=== PATIENT | male | born 1940 | race Caucasian/White ===

== ENCOUNTER 2019-11-23 07:46 | Day surgery (SDC) | payer OTHER ==
--- NOTE | 2019-11-22 11:13 | EKG ---
Test Date: 2019-11-22 Test Time: 09:44:38 Live [employer] Nanny: JORDY MEASUREMENT RESULTS: Intervals: Rate: 68 DC: 166 QRSD: 152 QT: 452 QTc: 480 [place]: P: 50 DC: 166 QRS: -68 T: -14 INTERPRETIVE STATEMENTS: Normal sinus rhythm Right bundle branch block Left anterior fascicular block Bifascicular block Abnormal ECG No previous ECG available for comparison Electronically Signed On 11-22-19 11:13:21 CDT by Jed Langley
[2019-11-22 11:32] LABS: Potassium 4.3 mmol/L (3.5-5.1)
--- NOTE | 2019-11-22 11:32 | RAD REPORT ---
EXAM DESCRIPTION: RAD - Chest Pa And Lat (2 Views) - 11/22/2019 11:14 am CLINICAL HISTORY: preop Chest pain. COMPARISON: Chest Pa And Lat (2 Views) dated 09/27/2016 FINDINGS: Calcified granuloma seen left lung. Elevated right hemidiaphragm with subsegmental atelect asis in the right lung base. The lungs are otherwise clear. The heart is upper limit of normal in siz e. No displaced fractures.
[2019-11-22 11:39] LABS: Absolute Lymphocytes (CBC) 2.3 K/uL (0.7-4.9); Basophils % 0.4 % (0-1.3); Lymphocytes % 54.4 % (15.3-44.8); MPV 7.8 fL (7.6-11.3); RBC Red Blood Cell Count 3.62 M/uL (4.33-5.43)
[2019-11-23] MEDS ORDERED: NA CHLORIDE 0.9% 1,000 ML ONE (08:09)
[2019-11-23] MEDS ORDERED: CEFAZOLIN/SWI 1gm 1 GM/10 ML SYR ONE (08:19)
[2019-11-23] MEDS ORDERED: FENTANYL CITR 100 MCG/2 ML ONE (09:13)
[2019-11-23] MEDS ORDERED: LIDOCAINE 1% MPF 5 ML VIAL ONE (09:13)
[2019-11-23] MEDS ORDERED: propofoL 200 MG/20 ML VIAL IV ONE (09:13)
--- NOTE | 2019-11-23 09:52 | P.BOP ---
Preoperative diagnosis: infected back subcutaneous mass with cellulitis and abscess Postoperative diagnosis: same Primary procedure: Excisional biopsy infected back subcutaneous mass with abscess drainage Secondary procedure: 7x7cm Estimated blood loss: <10 Specimen: mass, cult Anesthesia: General Complications: None Transferred to: Recovery Room Condition: Good
[2019-11-23] MEDS ORDERED: KETOROLAC 30 MG/ML INJ ONE (09:55)
[2019-11-23] MEDS ORDERED: ONDANSETRON 4 MG/2 ML VIAL ONE (09:56)
[2019-11-23 10:19] VITALS: TEMP 98
[2019-11-23 12:01] VITALS: BP 118/67; O2SAT 92
--- NOTE | 2019-11-23 20:07 | OP ---
Date of Procedure: 11/23/2019 Surgeon: Tank Aldana MD Preoperative Diagnoses: Infected back subcutaneous mass with cellulitis and abscess, diabetes. Postoperative Diagnoses: Infected back subcutaneous mass with cellulitis and abscess, diabetes. Procedure: Excisional biopsy of infected back subcutaneous mass with drainage of an abscess, 7 x 7 c m. Estimated Blood Loss: Less than 10 mL. Specimens: Mass and culture from the pus. Anesthesia: General plus local. Indications: This is the case of a 79-year-old patient with history of diabetes, with infected back mass, subcutaneous abscess, tenderness. Patient was scheduled for an excisional biopsy and drainage of abscess with benefits, alternatives, and risks, including but not limited to infection, bleeding, damage to adjacent structures, anesthesia complication, nonhealing wound, VT, and even . He als o understands this may not relieve any symptoms, he might need more than one surgical intervention. He understood, signed a consent. He also understands he will need more than one surgical interventio n. He signed a consent. Description Of Procedure: Patient was brought to the operating room, placed in supine position. Ane sthesia was done without complication. Patient was placed in lateral decubitus position with proper protection. Back area was prepped and draped in a sterile fashion, time-out was called, and incision was made in the area of the necrotic tissue all the way down to subcutaneous tissue. Mass and absce ss goes all the way down to fascia of the muscle, but does not penetrate the muscle. The mass was ex cised, abscess was cultured. Patient tolerated the procedure well. Hemostasis was obtained and then the area was packed with wet-to-dry dressing. Patient tolerated the procedure well. Patient was se nt to recovery in stable condition. Disposition: Home. Activities: As tolerated. No heavy lifting. Followup: Follow up in my office in 1 week. Call for appointment [phone]. Wet-to-dry dressing, no rmal saline daily. Medications: See orders. HM/MODL Voice ID: [id number] Report ID: [id number]
--- NOTE | 2019-11-30 03:54 | DS ---
Diagnosis: Infected back subcutaneous mass with cellulitis and abscess. Procedure: Excisional biopsy of infected back, subcutaneous mass with abscess drainage. Disposition: Home. Activity: As tolerated. No heavy lifting. Followup: Follow up in my office in 1 week. Call for appointment [phone]. Wet-to-dry dressing, nor mal saline daily. Medications: See orders. JUDIT/SHAILESH Voice ID: [id number] Report ID: [id number]
--- NOTE | 2019-11-30 03:54 | OP ---
Date of Procedure: 11/29/2019 Surgeon: Tank Aldana MD Diagnosis: Infected back subcutaneous mass with cellulitis and abscess. Postoperative Diagnosis: Infected back subcutaneous mass with cellulitis and abscess. Procedure: Excisional biopsy of infected back subcutaneous mass with abscess drainage about 7 x 7 cm . Estimated Blood Loss: Less than 10 mL. Anesthesia: General plus local. Indications: This is a case of a 79-year-old patient coming with infected mass in the back. The maude efits and risks of excisional biopsy of that mass with the drainage of abscess fully explained which include but are not limited to infection, bleeding, damage to adjacent structures, anesthesia complic ation, nonhealing wound, [place], and even . He also understands this may not relieve the symptoms. He might need more than one surgical eventually. He understood, signed a consent. The area of conc leah was marked by me and the patient in the holding room. Description Of Procedure: Patient was brought to the operating room, placed in supine position. Ane sthesia was given without complication. The patient was placed in a lateral decubitus position with proper protection. The back area was prepped and draped in sterile fashion. A time-out was called. An incision was made where we did notice the devitalized tissue and mass present, some of the skin h ad to be removed and then this gave the access to an abscess cavity with multiple loculations that alvarez ve to be drained, pus, culture and hemostasis obtained with the mass excised. Patient tolerated the procedure well. Hemostasis obtained. Irrigation was done. Local anesthetic was applied. The area was closed with a dry dressing. Patient tolerated the procedure well. Patient was sent to recovery in stable condition. JUDIT/SHAILESH Voice ID: [id number] Report ID: [id number]
== END 2019-11-23 11:45 | disposition home or self-care (01) ==
LOC: OR 07:46
PROVIDERS: ATTEND Surgery
PROC: 0JB70ZZ Excision of Back Subcutaneous Tissue and Fascia, Open Approach (ICD-10-PCS; principal; 2019-11-23 09:00)
DX: L72.0 Epidermal cyst (principal); E11.9 Type 2 diabetes mellitus without complications; I10 Essential (primary) hypertension; K21.9 Gastro-esophageal reflux disease without esophagitis; E78.00 Pure hypercholesterolemia, unspecified; Z82.49 Family history of ischemic heart disease and other diseases of the circulatory system
CPT/HCPCS: 11406; 93005; 87070; 85025; 80048; 36415; 87205; 82947; 88304; 87075; 71046; J2704; J3010; J0690; J7030; J2405

== ENCOUNTER 2020-12-22 14:29 | Emergency (ER) | payer OTHER ==
--- NOTE | 2020-12-22 15:56 | RAD REPORT ---
EXAM DESCRIPTION: MRI - C Spine Wo Cont - 12/22/2020 3:22 pm CLINICAL HISTORY: neck pain COMPARISON: C Spine Ap/Lat dated 12/18/2020 TECHNIQUE: Sagittal T1-weighted, T2-weighted and T2-STIR sequences were obtained as well as T2 medic sequence. FINDINGS: Cervical vertebral bodies are normal in height and alignment. No suspicious marrow edema o r marrow replacing process. No paraspinal mass. Patient has scattered fatty marrow degenerative diaz ge in the Shyla bodies. There are prominent degenerative changes around the dens anterior arch C1. Th ickening is seen along the transverse ligament posterior to the dens. Cerebellar tonsils and mid-line skull base show no suspicious finding. No significant finding at the C1 and C2 levels. C2-3 level: No significant findings. C3-4 level: Midline disc bulge partially attenuates the anterior subarachnoid space. Midline canal is 12 mm with no contact of the cord. C4-5 level: Disc bulge and endplate spurring partially attenuate the anterior subarachnoid space. No cord flattening. Midline diameter is 13 mm. No significant foraminal encroachment. C5-6 level: Slight loss in disc height. Prominent disc bulge and endplate spurring attenuates the ant erior subarachnoid space. Posterior ligamentous thickening present. Midline canal is 11-12 mm. Uncove rtebral hypertrophy and disc bulge cause significant bilateral foraminal stenosis. C6-7 level: Disc space narrowing and desiccation changes are present. Mild disc bulge changes are pre sent without central spinal stenosis. Disc bulge and uncovertebral joint hypertrophy cause moderate l eft and moderately severe right foraminal stenosis. C7-T1 level: No significant findings. Cervical cord shows no focal narrowing, expansion or signal abnormality. IMPRESSION: Multilevel cervical spondylosis changes are present. There is no central spinal stenosi s or cord flattening. Significant degrees of foraminal stenosis are present at C5-6 and C6-7.
[2020-12-22 16:54] LABS: Basophils % 0.3 % (0-1.3); Hematocrit 24.3 % (39.6-49.0); Lymphocytes % 57.3 % (15.3-44.8); MPV 7.7 fL (7.6-11.3); RBC Red Blood Cell Count 2.26 M/uL (4.33-5.43)
[2020-12-22 17:08] LABS: ALT/SGPT 42 U/L (12-78); AST/SGOT 32 U/L (15-37); Albumin 3.3 g/dL (3.4-5.0); Alkaline Phosphatase 59 U/L (45-117); BUN Blood Urea Nitrogen 34 mg/dL (7-18); Bicarbonate 27 mmol/L (21-32); Bilirubin Total 0.4 mg/dL (0.2-1.0); Glucose Level 128 mg/dL (74-106); Potassium 4.2 mmol/L (3.5-5.1); Protein, Total 7.4 g/dL (6.4-8.2); Sodium Level 143 mmol/L (136-145); Troponin (Emerg Dept Use Only) < 0.02 ng/mL (0.0-0.045)
[2020-12-22] MEDS ORDERED: NA CHLORIDE 0.9% 500 ML ONE (17:29)
[2020-12-22] MEDS ORDERED: KETOROLAC 30 MG/ML INJ ONE (17:29)
[2020-12-22] MEDS ORDERED: DIAZEPAM 2 MG TABLET ONE (17:29)
[2020-12-22] MEDS ORDERED: dexAMETHasone 10 MG/ML VIAL ONE (17:29)
[2020-12-22 18:16] LABS: Anisocytosis 1+; Blood Morphology Comment NOTED (NOT SEEN); Platelet Estimate ADEQ; Poikilocytosis 1+
--- NOTE | 2020-12-22 18:57 | ER ---
Nurse's Notes [facility] Name: Rodriguez Bridges Age: 80 yrs Sex: Male : 1940 Arrival Date: 12/22/2020 Time: 14:32 Bed 19 Private MD: Kenneth Mullne R Diagnosis: Type 1 diabetes mellitus;Strain of muscle, fascia and tendon at neck level;Anemia, unspecified;Elevated erythrocyte sedimentation rate-greater than 140 Presentation: 12/22 14:41 Chief complaint: Patient states: Stiff neck x [address] Mullen for MRI. ss Coronavirus screen: Client denies travel out of the [place] in the last 14 days. Ebola Screen: Patient denies exposure to infectious person. Patient denies travel to an Ebola-affected area in the 21 days before illness onset. Initial Sepsis Screen: Does the patient meet any 2 criteria? No. Patient's initial sepsis screen is negative. Does the patient have a suspected source of infection? No. Patient's initial sepsis screen is negative. Risk Assessment: Do you want to hurt yourself or someone else? Patient reports no desire to harm self or others. Onset of symptoms was December 15, 2020. 14:41 Method Of Arrival: Ambulatory ss 14:41 Acuity: ANTIONETTE 3 ss Historical: - Allergies: 14:44 No Known Allergies; ss - PMHx: 14:44 Hypertension; Diabetes - IDDM; Prostate CA; ss - PSHx: 14:44 None; ss - Immunization history:: Adult Immunizations up to date. - Social history:: Smoking status: Patient denies any tobacco usage or history of. - Family history:: not pertinent. Screenin:37 Abuse screen: Denies threats or abuse. Nutritional screening: No deficits noted. ea Tuberculosis screening: No symptoms or risk factors identified. Fall Risk None identified. Assessment: 15:33 Reassessment: PT back from MRI. ss 19:00 General: Appears in no apparent distress. Behavior is calm, cooperative, appropriate ea for age. Pain: Complains of pain in base of the skull. Neuro: Level of Consciousness is awake, alert, obeys commands, Oriented to person, place, time. Cardiovascular: Patient's skin is warm and dry. Respiratory: Airway is patent Respiratory effort is even, unlabored, Respiratory pattern is regular, symmetrical. Derm: Skin is pink, warm \T\ dry. Vital Signs: 14:41 BP 150 / 75; Pulse 101; Resp 16; Temp 97.3(TE); Pulse Ox 98% on R/A; Weight 94.35 kg; ss Height 5 ft. 10 in. (177.80 cm); Pain 9/10; 19:38 BP 135 / 70; Pulse 80; Resp 18; Pulse Ox 97% on R/A; ea 14:41 Body Mass Index 29.84 (94.35 kg, 177.80 cm) ED Course: 14:32 Patient arrived in ED. mr 14:32 Kenneth Mullen MD is Private Physician. mr 14:36 Justino Mooney MD is Attending Physician. vaery 14:43 Triage completed. ss 14:44 Arm band placed on right wrist. ss 15:15 C Spine Wo Cont In Process Unspecified. EDMS 16:26 José Miguel Mora, DUONG is Primary Nurse. jd3 16:40 Troponin (emerg Dept Use Only) Sent. jd3 16:41 Comprehensive Metabolic Panel Sent. jd3 16:41 CBC with Diff Sent. jd3 16:41 Inserted saline lock: 20 gauge in left antecubital area, using aseptic technique. Blood jd3 collected. 18:54 Kenneth Mullen MD is Referral Physician. avery 18:55 Ollie Hendricks MD is Referral Physician. avery 19:00 Patient has correct armband on for positive identification. Bed in low position. Call ea light in reach. 19:38 No provider procedures requiring assistance completed. IV discontinued, intact, ea bleeding controlled, No redness/swelling at site. Pressure dressing applied. Administered Medications: 17:23 Drug: NS 0.9% 500 ml Route: IV; Rate: bolus; Site: left antecubital; jd3 19:00 Follow up: Response: No adverse reaction; IV Status: Completed infusion; IV Intake: ea 500ml 17:23 Drug: Decadron - Dexamethasone 10 mg Route: IVP; Site: left antecubital; jd3 19:00 Follow up: Response: No adverse reaction ea 17:24 Drug: TORadol - (ketorolac) 15 mg Route: IVP; Site: left antecubital; jd3 19:00 Follow up: Response: No adverse reaction ea 17:24 Drug: Valium (diazepam) 2 mg Route: PO; jd3 19:00 Follow up: Response: No adverse reaction ea 19:25 Drug: Baclofen 10 mg Route: PO; ea 19:41 Follow up: Response: Medication administered at discharge. ea 19:25 Drug: Gabapentin 300 mg Route: PO; ea 19:41 Follow up: Response: Medication administered at discharge. ea Intake: 19:00 IV: 500ml; Total: 500ml. ea Outcome: 18:56 Discharge ordered by . avery 19:38 Discharged to home ambulatory, with family. ea 19:38 Condition: stable 19:38 Discharge instructions given to patient, Instructed on discharge instructions, follow up and referral plans. medication usage, Demonstrated understanding of instructions, follow-up care, medications, Prescriptions given X 5 19:39 Patient left the ED. ea Signatures: Dispatcher [employer] EDJustino Ly MD MD cha Rivera, Ave Ellie Flores, Urszula Stafford RN, RN RN ea Davies, Jonathon, RN RN jd3
--- NOTE | 2020-12-22 18:57 | EDPHYS ---
Physician Documentation [facility] Name: Rodriguez Bridges Age: 80 yrs Sex: Male : 1940 Arrival Date: 12/22/2020 Time: 14:32 Bed 19 Private MD: Kenneth Mullen R ED Physician Justino Mooney HPI: 12/22 18:41 This 80 yrs old Male presents to ER via Ambulatory with complaints of Stiff avery Neck. 18:41 The patient or guardian complains of decreased range of motion, an injury, pain, that avery is acute. The symptoms are located at the C1 and C2. Onset: The symptoms/episode began/occurred 10 day(s) ago. Context: The problem was sustained at home, The neck injury/problem resulted from bending over, a known diagnosed history of degenerative joint disease, lifting. Associated signs and symptoms: The patient has no apparent associated signs or symptoms. The pain does not radiate. Modifying factors: The symptoms are alleviated by remaining still, the symptoms are aggravated by movement. Severity of symptoms: At their worst the symptoms were moderate, in the emergency department the symptoms are unchanged. The patient has not experienced similar symptoms in the past. Historical: - Allergies: 14:44 No Known Allergies; ss - PMHx: 14:44 Hypertension; Diabetes - IDDM; Prostate CA; ss - PSHx: 14:44 None; ss - Immunization history:: Adult Immunizations up to date. - Social history:: Smoking status: Patient denies any tobacco usage or history of. - Family history:: not pertinent. ROS: 18:41 Constitutional: Negative for fever, chills, and weight loss, Eyes: Negative for injury, avery pain, redness, and discharge, ENT: Negative for injury, pain, and discharge, Cardiovascular: Negative for chest pain, palpitations, and edema, Respiratory: Negative for shortness of breath, cough, wheezing, and pleuritic chest pain, Abdomen/GI: Negative for abdominal pain, nausea, vomiting, diarrhea, and constipation, Back: Negative for injury and pain, : Negative for injury, bleeding, discharge, and swelling, MS/Extremity: Negative for injury and deformity, Neuro: Negative for headache, weakness, numbness, tingling, and seizure, Psych: Negative for depression, anxiety, suicide ideation, homicidal ideation, and hallucinations, Allergy/Immunology: Negative for hives, rash, and allergies, Endocrine: Negative for neck swelling, polydipsia, polyuria, polyphagia, and marked weight changes, Hematologic/Lymphatic: Negative for swollen nodes, abnormal bleeding, and unusual bruising. 18:41 Neck: Positive for injury or acute deformity, pain with movement, pain at rest, tenderness, of the base of the skull. 18:41 Skin: Positive for pallor. Exam: 18:41 Constitutional: This is a well developed, well nourished patient who is awake, alert, avery and in no acute distress. Head/Face: Normocephalic, atraumatic. Eyes: Pupils equal round and reactive to light, extra-ocular motions intact. Lids and lashes normal. Conjunctiva and sclera are non-icteric and not injected. Cornea within normal limits. Periorbital areas with no swelling, redness, or edema. Neck: Trachea midline, no thyromegaly or masses palpated, and no cervical lymphadenopathy. Supple, full range of motion without nuchal rigidity, or vertebral point tenderness. No Meningismus. Chest/axilla: Normal chest wall appearance and motion. Nontender with no deformity. No lesions are appreciated. Cardiovascular: Regular rate and rhythm with a normal S1 and S2. No gallops, murmurs, or rubs. Normal PMI, no JVD. No pulse deficits. Respiratory: Lungs have equal breath sounds bilaterally, clear to auscultation and percussion. No rales, rhonchi or wheezes noted. No increased work of breathing, no retractions or nasal flaring. Abdomen/GI: Soft, non-tender, with normal bowel sounds. No distension or tympany. No guarding or rebound. No evidence of tenderness throughout. Back: No spinal tenderness. No costovertebral tenderness. Full range of motion. Male : Normal genitalia with no discharge or lesions. Skin: Warm, dry with normal turgor. Normal color with no rashes, no lesions, and no evidence of cellulitis. MS/ Extremity: Pulses equal, no cyanosis. Neurovascular intact. Full, normal range of motion. Neuro: Awake and alert, GCS 15, oriented to person, place, time, and situation. Cranial nerves II-XII grossly intact. Motor strength 5/5 in all extremities. Sensory grossly intact. Cerebellar exam normal. Normal gait. Psych: Awake, alert, with orientation to person, place and time. Behavior, mood, and affect are within normal limits. 18:41 Neck: External neck: is normal, no abrasions, no abscess, no cellulitis, no ecchymosis, no erythema, no laceration, no mass, no rash, no swelling, Thyroid: appears normal, Trachea: is midline with no obvious abnormalities, no acute changes. 18:41 ECG was reviewed by the Attending Physician. 18:53 Abdomen/GI: Rectal exam: is unremarkable, Prostate: enlarged, rectal tone normal, avery Stool: guaiac negative, hemorrhoid(s), are not appreciated, mass, swelling, is not appreciated, tenderness, is not appreciated, fecal impaction, is not appreciated, Liver: no appreciated palpable abnormalities, Hernia: not appreciated. Vital Signs: 14:41 BP 150 / 75; Pulse 101; Resp 16; Temp 97.3(TE); Pulse Ox 98% on R/A; Weight 94.35 kg; ss Height 5 ft. 10 in. (177.80 cm); Pain 9/10; 19:38 BP 135 / 70; Pulse 80; Resp 18; Pulse Ox 97% on R/A; ea 14:41 Body Mass Index 29.84 (94.35 kg, 177.80 cm) ss MDM: 16:22 Patient medically screened. avery 18:49 Differential diagnosis: arthritis, C-Spine Fracture Cervical Disc Herniation Cervical avery Facet Syndrome Cervical Raiculopathy Cervical Spondylosis cervical strain, Degenerative Disc Disease Epidural Abcess Epidural Bleed fracture, Neck Contusion Osteoarthritis Spinal Cord Compression Spondylolisthesis Spondylosis torticollis. Data reviewed: vital signs, nurses notes, lab test result(s), EKG, radiologic studies, MRI, plain films. 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 Test interpretation: by ED physician or midlevel provider: ECG, plain radiologic studies. Counseling: I had a detailed discussion with the patient and/or guardian regarding: the historical points, exam findings, and any diagnostic results supporting the discharge/admit diagnosis, lab results, radiology results, the need for outpatient follow up, for definitive care, an instrument calibrator, a neurologist. 18:51 Physician consultation: Ollie Hendricks MD was called at 18:45, was contacted at 18:45, avery regarding consult, patient's condition, outpatient follow-up, in 2-3 days, and will see patient in office. 12/22 14:39 Order name: CBC with Diff; Complete Time: 18:25 [facility] 12/22 14:39 Order name: Comprehensive Metabolic Panel; Complete Time: 18:25 [facility] 12/22 14:39 Order name: Troponin (emerg Dept Use Only); Complete Time: 18:25 [facility] 12/22 14:39 Order name: Sed Rate; Complete Time: 18:25 [facility] 12/22 18:16 Order name: Manual Differential; Complete Time: 18:25 EDMS 12/22 18:39 Order name: Occult Blood--Ancillary bd 12/22 14:39 Order name: EKG - Nurse/Tech; Complete Time: 16:58 [facility] 12/22 14:41 Order name: C Spine Wo Cont; Complete Time: 16:48 EDMS EC:41 Rate is 88 beats/min. Rhythm is regular. QRS Docena is Normal. CT interval is normal. QRS avery interval is normal. QT interval is normal. No Q waves. T waves are Normal. No ST changes noted. Clinical impression: NSR w/ Non-specific ST/T Changes and No evidence of ischemia. Interpreted by me. Reviewed by me. Administered Medications: 17:23 Drug: NS 0.9% 500 ml Route: IV; Rate: bolus; Site: left antecubital; jd3 19:00 Follow up: Response: No adverse reaction; IV Status: Completed infusion; IV Intake: ea 500ml 17:23 Drug: Decadron - Dexamethasone 10 mg Route: IVP; Site: left antecubital; jd3 19:00 Follow up: Response: No adverse reaction ea 17:24 Drug: TORadol - (ketorolac) 15 mg Route: IVP; Site: left antecubital; jd3 19:00 Follow up: Response: No adverse reaction ea 17:24 Drug: Valium (diazepam) 2 mg Route: PO; jd3 19:00 Follow up: Response: No adverse reaction ea 19:25 Drug: Baclofen 10 mg Route: PO; ea 19:41 Follow up: Response: Medication administered at discharge. ea 19:25 Drug: Gabapentin 300 mg Route: PO; ea 19:41 Follow up: Response: Medication administered at discharge. ea Disposition: 12/22/20 18:56 Discharged to Home. Impression: Type 1 diabetes mellitus, Strain of muscle, fascia and tendon at neck level, Anemia, unspecified, Elevated erythrocyte sedimentation rate - greater than 140. - Condition is Stable. - Discharge Instructions: Anemia, Nonspecific, Muscle Strain, Cervical Sprain, Cervical Sprain, [id number], Type 1 Diabetes Mellitus, Self Care, Adult, [id number]. - Prescriptions for gabapentin 300 mg Oral capsule - take 1 capsule by ORAL route 2 times per day; 30 capsule. Tylenol- Codeine #3 300-30 mg Oral Tablet - take 2 tablets by ORAL route every 4-6 hours As needed; 24 tablet. Baclofen 10 mg Oral Tablet - take 1 tablet by ORAL route 2 times per day; 20 tablet. Medrol (Jermaine) 4 mg Oral Tablets, Dose Pack - take 1 tablet by ORAL route as directed - follow package instructions; 1 packet. Motrin IB 200 mg Oral Tablet - take 1 tablet by ORAL route every 6 hours As needed as needed with food; 20 tablet. Zofran ODT 4 mg Oral tablet,disintegrating - place 1 tablet by TRANSLINGUAL route every 8 hours for 7 days; 20 tablet. - Medication Reconciliation Form, Thank You Letter, Antibiotic Education, Prescription Opioid Use form. - Follow up: Kenneth Mullen MD; When: 2 - 3 days; Reason: Recheck today's complaints, Continuance of care, Re-evaluation by your physician. Follow up: Ollie Hendricks MD; When: 2 - 3 days; Reason: Recheck today's complaints, Re-evaluation by your physician. - Problem is new. - Symptoms have improved. Signatures: Dispatcher [employer] Justino Ramos MD MD cha Smirch, Shelby, RN RN ss Antunez, Elena, RN RN ea Davies, Jonathon, RN RN jd3 Corrections: (The following items were deleted from the chart) 19:39 18:56 12/22/2020 18:56 Discharged to Home. Impression: Type 1 diabetes mellitus; Strain ea of muscle, fascia and tendon at neck level; Anemia, unspecified; Elevated erythrocyte sedimentation rate - greater than 140. Condition is Stable. Forms are Medication Reconciliation Form, Thank You Letter, Antibiotic Education, Prescription Opioid Use. Follow up: Kenneth Mullen; When: 2 - 3 days; Reason: Recheck today's complaints, Continuance of care, Re-evaluation by your physician. Follow up: Ollie Hendricks; When: 2 - 3 days; Reason: Recheck today's complaints, Re-evaluation by your physician. Problem is new. Symptoms have improved. avery
[2020-12-22] MEDS ORDERED: GABAPENTIN 300 MG CAP ONE (19:35)
[2020-12-22] MEDS ORDERED: BACLOFEN 10 MG TAB ONE (19:41)
[2020-12-22 20:21] VITALS: TEMP 97.3
[2020-12-22 20:22] VITALS: BP 135/70; O2SAT 97
--- NOTE | 2020-12-23 10:28 | EKG ---
Test Date: 2020-12-22 Test Time: 16:48:36 Quality Supervisor: KATHLEEN MEASUREMENT RESULTS: Intervals: Rate: 88 OR: 162 QRSD: 146 QT: 426 QTc: 515 Section: P: 38 OR: 162 QRS: -59 T: 43 INTERPRETIVE STATEMENTS: Normal sinus rhythm Right bundle branch block Left anterior fascicular block Bifascicular block Abnormal ECG Compared to ECG 11/22/2019 09:44:38 No significant changes Electronically Signed On 12-23-20 10:25:45 CDT by Jed Langley
== END 2020-12-22 19:39 | disposition home or self-care (01) ==
LOC: ER 14:29
DX: S16.1XXA Strain of muscle, fascia and tendon at neck level, initial encounter (principal); D64.9 Anemia, unspecified; R70.0 Elevated erythrocyte sedimentation rate; E10.8 Type 1 diabetes mellitus with unspecified complications; I10 Essential (primary) hypertension; Z85.46 Personal history of malignant neoplasm of prostate
CPT/HCPCS: 93005; 85025; 36415; 82272; 85652; 84484; 80053; 72141; J1100; J7040; 96361; 96374; 96375; 99284

== ENCOUNTER 2022-07-13 10:16 | Emergency (ER) | payer OTHER ==
--- OUTSIDE RECORDS SUMMARY | 2022-07-13 10:27 | XMS REPORT | Continuity of Care Document ---
:[address] [facility] t Address [address] [place] [address] Care Team Providers Name Role Phone [id number] Primary Care Physician Unavailable SRIRAM ECHAVARRIA Attending Clinician Unavailable LEILANI ZHENG Attending Clinician Unavailable Tyrone Rice MD Attending Clinician Agnes Costa MA Attending Clinician Unavailable LAB90 Attending Clinician Unavailable TRACY GU Attending Clinician Unavailable Kathleen Gonzalez MD Attending Clinician Klaus Garcia MA Attending Clinician Unavailable Keiry Cabral MD Attending Clinician Aissatou RANDHAWA, Yeison Attending Clinician Brodie Person RN Attending Clinician Unavailable [facility] Attending Clinician Unavailable Zayra Cassidy RN Attending Clinician Unavailable Blu Gant MD Attending Clinician Alisha Hernandez RN Attending Clinician Unavailable Sandy Oliveira RPH Attending Clinician Unavailable Naty Quezada RPH Attending Clinician Unavailable Geovanny Recinos MD Attending Clinician [phone] Leonela Neely Attending Clinician Unavailable Wally GUTHRIERohith Attending Clinician Unavailable Esthela Adam MA Attending Clinician Unavailable Deanna Deleon NP Attending Clinician Craig Peters RN Attending Clinician Unavailable Analia [facility], Kathia Attending Clinician Unavailable Gali Molina MA Attending Clinician Unavailable Darian ZUÑIGA, Kenneth Attending Clinician Joce SUAZO, Leesa Attending Clinician Unavailable Cyndy Aquino MD Attending Clinician [phone] Carlos Simpson MA, Mercedes Attending Clinician Unavailable Tenzin WATTERS, Josias Attending Clinician Unavailable Ulises [facility], Celestine Attending Clinician Unavailable Loni WATTERS, Tamiko Attending Clinician Unavailable Vinayak WATTERS, Preethi Attending Clinician Unavailable Clara [facility], Misty Attending Clinician Unavailable Katerin Ramon Attending Clinician Unavailable Darnell [facility], Estelle Attending Clinician Unavailable Peg Mcpherson Attending Clinician [phone] Stefan_S_AH Attending Clinician Unavailable PETROS CABRAL Attending Clinician Unavailable SARA FRANKLIN Attending Clinician Unavailable MD SARA FRANKLIN Attending Clinician Unavailable AIDA DEL RIO Attending Clinician Unavailable MD AIDA DEL RIO Attending Clinician Unavailable Severo-Markoso_A_AH Attending Clinician Unavailable Stefan_S_AH Admitting Clinician Unavailable SARA FRANKLIN Admitting Clinician Unavailable MD ABRIL CAMILO Admitting Clinician Unavailable PETROS CABRAL Admitting Clinician Unavailable SYDNEE FERNANDEZ Admitting Clinician Unavailable Crispino_A_AH Admitting Clinician Unavailable Payers Payer Name Policy Type Policy Number Effective Date Expiration Date Vicki pfeiffer [facility] 7 [id number] 2021 CLASSIC NO PREMIUM 00:00:[address] [place] - [id number] 2019 [employer] 00:00:00 (MEDICARE REPLACEMENT/ADVANT AGE - HMO) Problems Condition Condition Condition Status Onset Resolution Last Treating Co mments Source Name Details Category Date Date Treatment Clinician Date 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 due 2-20 Se ybold to to 00:00: - conditions conditions 00 Ex terna classified classified l elsewhere elsewhere Well adult Well adult Disease Active 2021-07 K elsey exam exam 2-20 Seybold 00:00: - 00 Externa l Primary Primary Disease Active 2021-07 Norma hypertensi hypertensi 2-20 Se ybold on on 00:00: - 00 Externa l Prostate Prostate Disease Active 2021-07 Kelse y cancer cancer 2-20 Seybold 00:00: - 00 Externa l 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 00:00: - in relapse in relapse 00 Ex terna l DM type 2 DM type 2 Disease Active 2021-07 Adams sey with with 2-20 Seybold diabetic diabetic 00:00: - mixed mixed 00 Externa hyperlipid hyperlipid l emia emia Chronic Chronic Disease Active 2021-07 Norma gout gout 2-20 Seybold involving involving 00:00: - toe of toe of 00 Externa left foot 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 Anemia, Anemia, Disease Active 2021-07 Norma chronic chronic 2-20 Seybold disease disease 00:00: - 00 Externa l Goals of Goals of Disease Active 2021-07 Metho di care, care, 2-14 st counseling counseling 00:00: Ho spita /discussio /discussio 00 l n n Steroid-in Steroid-in Disease Active M ethodi duced duced 8-08 st hyperglyce hyperglyce 00:00: Ho ramirezta libby libby 00 l Encounter Encounter Disease Active Met hodi for for 4-18 st antineopla antineopla 00:00: Ho spita stic stic 00 l chemothera chemothera py py Vitamin D Vitamin D Disease Active Met hodi deficiency deficiency 4-14 st 00:00: Hospita 00 l Hyperkalem Hyperkalem Disease Active M ethodi ia ia 4-07 st 00:00: Hospita 00 l S/P S/P Disease Active 2020-07 Method[facility] chemothera chemothera 2-21 st py, time py, time 00:00: Hospit a since less since less 00 l than 4 than 4 weeks weeks Hypomagnes Hypomagnes Disease Active 2020-07 M ethodi emia emia 2- st 00:00: Hospita 00 l On On Disease Active 2020-07 Methodi antineopla antineopla 0-04 st stic stic 00:00: Hospita chemothera chemothera 00 l py py Pure Pure Disease Active Methodi hyperchole hyperchole 8-[address] sterolemia sterolemia 00:00: Ho spita 00 l Hyperurice Hyperurice Disease Active M ethodi libby libby 8-19 st 00:00: Hospita 00 l Pancytopen Pancytopen Disease Active M ethodi ia due to ia due to 8-16 st antineopla antineopla 00:00: Ho spita stic stic 00 l chemothera chemothera py py Peripheral Peripheral Disease Active M ethodi edema edema 8-16 st 00:00: Hospita 00 l Acute Acute Disease Active Methodi myeloid myeloid 8-03 st leukemia leukemia 00:00: Hospit a in in 00 l remission remission AML (acute AML (acute Disease Active M ethodi myeloid myeloid 8-03 st leukemia) leukemia) 00:00: Hosp sumit in relapse in relapse 00 l Prostate Prostate Disease Active Metho di cancer cancer 6-15 st 00:00: Hospita 00 l Abnormal Abnormal Disease Active Metho di stress stress 6-08 st test test 00:00: Hospita 00 l CAD in CAD in Disease Active [facility] gakona gakona [address] artery artery 00:00: Hospita 00 l SOB SOB Disease Active Method[facility] (shortness (shortness 6-08 st of breath) of breath) 00:00: Ho spita 00 l Macrocytic Macrocytic Disease Active M ethodi anemia anemia 12-02 st 00:00: Hospita 00 l Malignant Malignant Disease Active Met hodi neoplasm neoplasm [address] of of 00:00: Hospita prostate prostate 00 l Hyperchole Hyperchole Problem Active V illage sterolemia sterolemia 3-21 Fa destini 00:00: Practic 00 e Benign Benign Problem Active [facility] prostatic Prostatic 3-21 Fami ly hyperplasi Hyperplasi 00:00: Pr actic a a 00 e Glaucoma Glaucoma Problem Active Zarate ge 2-09 Family 00:00: Practic 00 e Essential Essential Problem Active Belinda larissa hypertensi Hypertensi 2-03 Fa destini on on 00:00: Practic 00 e Hyperlipid Hyperlipid Problem Active V illage emia due emia Due 2-03 Family to type 2 to Type 2 00:00: Prac tic diabetes Diabetes 00 e mellitus Mellitus Chronic Chronic Problem Active [facility] fibrosis Fibrosis 1-06 Family of lung of Lung 00:00: Practic 00 e Retinopath Retinopath Problem Active V illage y due to y Due to 1-06 Family type 2 Type 2 00:00: Practic diabetes Diabetes 00 e mellitus Mellitus Allergies, Adverse Reactions, Alerts This patient has no known allergies or adverse reactions. Family History Family Member Diagnosis Comments Start Date Stop Date Source Natural brother [facility] Natural father Heart attack [facility] mother Pneumonia [facility] Social History Social Habit Start Date Stop Date Quantity Comments Source Tobacco use and 2022-06-29 2022-06-29 Smokeless tobacco Ke lsey Seybold - exposure 00:00:00 00:00:00 non-user External Education 2022-06-29 2022-06-29 13 Norma Seybold - 00:00:00 00:00:00 External Alcohol intake 2022-06-23 2022-06-23 Ex-drinker Mosque 00:00:00 00:00:00 (finding) [facility] Alcohol Comment 2021-01-16 2021-01-16 rare Mosque 00:00:00 00:00:00 [facility] Sex [birth year] At [birth year] Mosque 00:00:00 00:00:00 Hospital Smoking Status Start Date Stop Date Source Never smoked tobacco Norma Seyb old - External Medications Ordered Filled Start Stop Current Ordering Indication Dosage Frequency Signature Comments Components Source Medication Medication Date Date Medication? Clinician (SIG) Name Name Glimepiride 2021-07- No 4mg Take 4 mg Norma 4 MG oral 2-20 12-20 by mouth Seybo ld Tablet 10:56: 00:00 every - 39 :00 morning Externa (before l breakfast) Carvedilol 2021-07- No 1{each} 1 each K elsey 12.5 MG 2-20 12-20 every 12 Seybold oral Tablet 10:46: 00:00 hours - 41 :00 Externa l Metformin 2021-07- No 1{each} 1 each Andrew winklerey HCl 500 MG 2-20 12-20 every 8 Seybo ld oral Tablet 10:33: 00:00 hours - 31 :00 Externa l Amlodipine 2021-07 Yes 1{each} 1 each Andrew gagnon Besylate 5 2-20 daily Seybold MG oral 10:26: - Tablet 04 Externa l Bimatoprost 2021-07 Yes Kris ramírez (Lumigan) 2-20 0.01 % eye Seyb old 0.01 % 10:26: drops - ophthalmic 04 Externa Solution l Brimonidine 2021-07 Yes Combreinaldo Morales lskilo Tartrate-Ti 2-20 0.2 %-0.5 Sey bold molol 10:26: % eye - 0.2-0.5 % 04 drops Externa ophthalmic INSTILL 1 l Solution DROP INTO AFFECTED EYE(S) BY OPHTHALMIC ROUTE EVERY 12 HOURS Omeprazole 2021-07 Yes 20mg Take 20 mg K elsey 20 MG oral 2-20 by mouth Seybo ld Delayed 10:26: - Release 04 Externa Capsule l Pravastatin 2021-07 Yes 1{each} 1 each Hailee elsey Sodium 20 2-20 daily Seybold MG oral 10:26: - Tablet 04 Externa l Tamsulosin 2021-07 Yes 1{capsu 1 capsule Norma HCl 0.4 MG 2-20 le} daily Seybold oral 10:26: - Capsule 04 Externa l Valacyclovi 2021-07 Yes 500mg Take 500 K elsey r HCl 500 2-20 mg by Seybold MG oral 10:26: mouth 2 - Tablet 04 times Externa daily l Darolutamid 2021-07 Yes Take by Adams ramírez e 300 MG 2-20 mouth 2 Seybold oral Tablet 10:26: times - 04 daily Externa l Carvedilol 2021-07 Yes [id number] 12.5mg Take 1 Norma 12.5 MG 2-20 tablet Seybold oral Tablet 00:00: (12.5 mg - 00 total) by Externa mouth l daily Insulin 2021-07 Yes [id number] 24U Inject 24 Norma Glargine 2-20 3 units into Seybo ld (Basaglar 00:00: the skin - KwikPen) 00 at bedtime Exter na 100 UNIT/ML l subcutaneou s Solution Pen-injecto r Glucose 2021-07 Yes [id number] 1{each} 1 each by Norma Blood in -20 3 other Seybold vitro Strip 00:00: route - 00 daily Externa Check BS l twice daily glimepiride 2021-07 Yes 4mg QD Take 1 Meth vitaliy (AMARYL) 4 2-14 tablet (4 st MG tablet 13:32: mg total) Hos hal 29 by mouth l daily before breakfast. omeprazole 2021-07 Yes 20mg Take 20 mg M ethodi (PriLOSEC) 2-[address] 20 MG 13:24: Every Hospita capsule 42 Tuesday, l Tuesday, and Tuesday. ascorbic 2021-07 Yes 500mg QD Take 500 Meth vitaliy acid, 2-[address] vitamin C, 13:24: mouth Hospit a (VITAMIN C) 42 daily. l 500 MG tablet darolutamid 2021-07- Yes [id number] 600mg Q.5D Take 600 Methodi e 300 mg 08-[address] tablet 00:00: 05:59 mouth 2 Hospita 00 :00 (two) l times a day with meals. relugolix 2021-07- Yes [id number] 120mg QD Take 1 Methodi 120 mg 08-[address] tablet 00:00: 05:59 (120 mg Hospita 00 :00 total) by l mouth daily. Relugolix 2021-07- Yes 120mg Take 120 Ke lsey 120 MG oral 08-11- mg by Seybol d Tablet 00:00: 05:59 mouth - 00 :00 daily Externa l Doxycycline 2021-07 Yes TAKE 1 Lakshmi ey Hyclate 100 1-22 CAPSULE BY Se ybold MG oral 00:00: MOUTH 2 - Capsule 00 TIMES A Externa DAY FOR 30 l DAYS. Ondansetron 2021-07 Yes TAKE 1 Lakshmi ey (ZOFRAN) 8 1-22 TABLET BY Seyb old MG oral 00:00: MOUTH - tablet 00 EVERY 8 Externa HOURS l NEEDED FOR NAUSEA OR VOMITING FOR UP TO 30 DAYS. doxycycline 2021-07- No 100mg Q.5D Take 1 Me thodi (VIBRAMYCIN 08-[address] ) 100 MG 00:00: 05:59 (100 mg Hospi ta capsule 00 :00 total) by l mouth 2 (two) times a day for 30 days. ondansetron 2021-07- No 8mg Q8H Take 1 Met hodi (ZOFRAN) 8 08-01 12-23 tablet (8 st MG tablet 00:00: 05:59 mg total) Ho spita 00 :00 by mouth l every 8 (eight) hours as needed for nausea or vomiting for up to 30 days. Basaglar 2021-07- No Norma KwikPen 100 0-28 12-20 Seybold UNIT/ML 00:00: 00:00 - subcutaneou 00 :00 Externa s Solution l Pen-injecto r allopurinoL 2021-07- Yes 300mg QD Take 1 Me thodi (ZYLOPRIM) 0-17 02-[address] 300 MG 00:00: 05:59 (300 mg Hospita tablet 00 :00 total) by l mouth daily for 120 days. Allopurinol 2021-07- Yes 300mg Take 300 Norma 300 MG oral 0-17 02-15 mg by Seybol d Tablet 00:00: 05:59 mouth - 00 :00 daily Externa l omeprazole 0 Yes 20mg Take 20 mg M ethodi (PriLOSEC) 8-[address] 20 MG 09:55: Every Hospita capsule 53 Tuesday, l Tuesday, and Tuesday. ascorbic 2021-0 Yes 500mg QD Take 500 Meth vitaliy acid, 8-[address] vitamin C, 09:55: mouth Hospit a (VITAMIN C) 53 daily. l 500 MG tablet omeprazole 0 Yes 20mg Take 20 mg M ethodi (PriLOSEC) 8-[address] 20 MG 09:55: Every Hospita capsule 53 Tuesday, l Tuesday, and Tuesday. ascorbic 2021-0 Yes 500mg QD Take 500 Meth vitaliy acid, 8-[address] vitamin C, 09:55: mouth Hospit a (VITAMIN C) 53 daily. l 500 MG tablet posaconazol 2022- No [id number] 300mg QD Take 3 Methodi e (NOXAFIL) 8-10 08-[address] 100 mg 00:00: 04:59 (300 mg Hospita tablet,savana 00 :00 total) by l yed release mouth (DR/EC) daily. tablet posaconazol 2021-0 2022- No [id number] 300mg QD Take 3 Methodi e (NOXAFIL) 02-17 08-[address] 100 mg 00:00: 04:59 (300 mg Hospita tablet,savana 00 :00 total) by l yed release mouth (DR/EC) daily. tablet posaconazol 2021-0 2021- No [id number] 300mg QD Take 3 Methodi e (NOXAFIL) 02-17-[address] 100 mg 00:00: 00:00 (300 mg Hospita tablet,savana 00 :00 total) by l yed release mouth (DR/EC) daily. tablet voriconazol 2021-0 2022- No [id number] 200mg Q.5D Take 1 Methodi e (VFEND) 01-[address] 200 MG 00:00: 05:59 (200 mg Hospita tablet 00 :00 total) by l mouth 2 (two) times a day for 180 days. voriconazol 2021-0 2022- No [id number] 200mg Q.5D Take 1 Methodi e (VFEND) 01-[address] 200 MG 00:00: 05:59 (200 mg Hospita tablet 00 :00 total) by l mouth 2 (two) times a day for 180 days. voriconazol 2021-0 2022- No [id number] 200mg Q.5D Take 1 Methodi e (VFEND) 01-[address] 200 MG 00:00: 05:59 (200 mg Hospita tablet 00 :00 total) by l mouth 2 (two) times a day for 180 days. Voriconazol 2021-0 2022- No 200mg Take 200 Norma e 200 MG 01-19 mg by Seybold oral Tablet 00:00: 05:59 mouth 2 - 00 :00 times Externa daily l venetoclax 2021-0 2021- No [id number] 100mg QD Take 1 [facility] (VENCLEXTA) 01-[address] 100 mg 00:00: 05:59 (100 mg Hospita chemo 00 :00 total) by l tablet mouth daily for 14 days. Then 2 weeks off venetoclax 2022021- No [id number] 100mg QD Take 1 [facility] (VENCLEXTA) 01-12-[address] 100 mg 00:00: 04:59 (100 mg Hospita chemo 00 :00 total) by l tablet mouth daily for 14 days. Then 2 weeks off venetoclax 2021- No [id number] 100mg QD Take 1 [facility]i (VENCLEXTA) 01-[address] 100 mg 00:00: 04:59 (100 mg Hospita chemo 00 :00 total) by l tablet mouth daily for 14 days. Then 2 weeks off metFORMIN 2021- No 1000mg QD Take 1,000 Methodi (GLUCOPHAGE 6-01 06-[address] ) 500 mg 18:47: 00:00 mouth Hospita tablet 17 :00 nightly. l metFORMIN 2021- No 1000mg QD Take 1,000 Method[facility] (GLUCOPHAGE 6-01 06-[address] ) 500 mg 18:47: 00:00 mouth Hospita tablet 17 :00 nightly. l metFORMIN 2021- No 1000mg QD Take 1,000 Methodi (GLUCOPHAGE 6-01 06-[address] ) 500 mg 18:47: 00:00 mouth Hospita tablet 17 :00 nightly. l relugolix 0 Yes [id number] 120mg QD Take 1 [facility]i 120 mg 4-[address] tablet 00:00: (120 mg Hospita 00 total) by l mouth daily. relugolix 0 Yes [id number] 120mg QD Take 1 [facility] 120 mg 4-[address] tablet 00:00: (120 mg Hospita 00 total) by l mouth daily. relugolix 2021- No [id number] 120mg QD Take 1 [facility] 120 mg 4-21 12-[address] tablet 00:00: 00:00 (120 mg Hospita 00 :00 total) by l mouth daily. relugolix 0 2021- No [id number] 120mg QD Take 1 [facility] 120 mg 4-21 05-[address] tablet 00:00: 04:59 (120 mg Hospita 00 :00 total) by l mouth daily for 30 days. relugolix 2021- No [id number] 120mg QD Take 1 [facility] 120 mg 10-29-[address] tablet 00:00: 04:59 (120 mg Hospita 00 :00 total) by l mouth daily for 30 days. relugolix 2021- No [id number] 120mg QD Take 1 [facility] 120 mg 10-29-[address] tablet 00:00: 04:59 (120 mg Hospita 00 :00 total) by l mouth daily for 30 days. darolutamid 2021-0 Yes [id number] 600mg Q.5D Take 600 Methodi e 300 mg 4-[address] tablet 00:00: mouth 2 Hospita 00 (two) l times a day. darolutamid 2021-0 Yes [id number] 600mg Q.5D Take 600 Methodi e 300 mg 4-[address] tablet 00:00: mouth 2 Hospita 00 (two) l times a day. darolutamid 2021- No [id number] 600mg Q.5D Take 600 Methodi e 300 mg 4 12-[address] tablet 00:00: 00:00 mouth 2 Hospita 00 :00 (two) l times a day. fluconazole 2021- No 200mg QD Take 200 [facility] (DIFLUCAN) 4 06-[address] 200 MG 00:00: 00:00 mouth Hospita tablet 00 :00 daily. l fluconazole 2021-2021- No 200mg QD Take 200 [facility] (DIFLUCAN) 4 06-[address] 200 MG 00:00: 00:00 mouth Hospita tablet 00 :00 daily. l fluconazole 2021-0 2021- No 200mg QD Take 200 [facility] (DIFLUCAN) 4 06-[address] 200 MG 00:00: 00:00 mouth Hospita tablet 00 :00 daily. l venetoclax 2021- No [id number] 100mg QD Take 1 [facility] (VENCLEXTA) 10-15- tablet st 100 mg 00:00: 00:00 (100 mg Hospita chemo 00 :00 total) by l tablet mouth daily for 14 days. venetoclax 2021- No [id number] 100mg QD Take 1 [facility] (VENCLEXTA) 10-[address] 100 mg 00:00: 04:59 (100 mg Hospita chemo 00 :00 total) by l tablet mouth daily for 14 days. venetoclax 2021- No [id number] 100mg QD Take 1 [facility] (VENCLEXTA) 10-[address] 100 mg 00:00: 04:59 (100 mg Hospita chemo 00 :00 total) by l tablet mouth daily for 14 days. doxycycline 2021- No 100mg Q.5D Take 100 [facility] (VIBRAMYCIN 4-05 06-[address] ) 100 MG 00:00: 00:00 mouth 2 Hospi ta capsule 00 :00 (two) l times a day. doxycycline 2021- No 100mg Q.5D Take 100 [facility] (VIBRAMYCIN 4-05 06-[address] ) 100 MG 00:00: 00:00 mouth 2 Hospi ta capsule 00 :00 (two) l times a day. doxycycline 2021- No 100mg Q.5D Take 100 [facility] (VIBRAMYCIN 4-05 06-[address] ) 100 MG 00:00: 00:00 mouth 2 Hospi ta capsule 00 :00 (two) l times a day. allopurinoL Yes TAKE 1 Meth vitaliy (ZYLOPRIM) 3-[address] 300 MG 00:00: MOUTH Hospita tablet 00 EVERY DAY l allopurinoL 2021- Yes TAKE 1 Meth vitaliy (ZYLOPRIM) 3-[address] 300 MG 00:00: MOUTH Hospita tablet 00 EVERY DAY l allopurinoL 2021- No TAKE 1 Met hodi (ZYLOPRIM) 09-16-[address] 300 MG 00:00: 00:00 MOUTH Hospita tablet 00 :00 EVERY DAY l magnesium 2021- No TAKE 1 Metho di oxide 09-16- TABLET BY st (MAG-OX) 00:00: 00:00 MOUTH 2 Hospi ta 400 mg 00 :00 TIMES A l (241.3 mg DAY FOR 30 magnesium) DAYS. tablet magnesium 2021- No TAKE 1 Metho di oxide 09-16- TABLET BY st (MAG-OX) 00:00: 00:00 MOUTH 2 Hospi ta 400 mg 00 :00 TIMES A l (241.3 mg DAY FOR 30 magnesium) DAYS. tablet magnesium TAKE 1 Metho di oxide 09-[address] (MAG-OX) 00:00: 00:00 MOUTH 2 Hospi ta 400 mg 00 :00 TIMES A l (241.3 mg DAY FOR 30 magnesium) DAYS. tablet venetoclax No [id number] 100mg QD Take 1 [facility] (VENCLEXTA) 08-[address] 100 mg 00:00: 00:00 (100 mg Hospita chemo 00 :00 total) by l tablet mouth daily for 14 days. venetoclax No [id number] 100mg QD Take 1 [facility] (VENCLEXTA) 08-[address] 100 mg 00:00: 05:59 (100 mg Hospita chemo 00 :00 total) by l tablet mouth daily for 14 days. venetoclax No [id number] 100mg QD Take 1 [facility] (VENCLEXTA) 08-[address] 100 mg 00:00: 05:59 (100 mg Hospita chemo 00 :00 total) by l tablet mouth daily for 14 days. doxycycline [id number] TAKE 1 [facility] (VIBRAMYCIN 08-[address] ) 100 MG 00:00: 05:59 (100 MG Hospi ta capsule 00 :00 TOTAL) BY l MOUTH 2 (TWO) TIMES A DAY doxycycline No [id number] TAKE 1 [facility] (VIBRAMYCIN 08-[address] ) 100 MG 00:00: 05:59 (100 MG Hospi ta capsule 00 :00 TOTAL) BY l MOUTH 2 (TWO) TIMES A DAY doxycycline No [id number] TAKE 1 [facility] (VIBRAMYCIN 08-[address] ) 100 MG 00:00: 05:59 (100 MG Hospi ta capsule 00 :00 TOTAL) BY l MOUTH 2 (TWO) TIMES A DAY venetoclax No [id number] 200mg QD Take 2 [facility] (Venclexta) 07-[address] 100 mg 00:00: 05:59 (200 mg Hospita chemo 00 :00 total) by l tablet mouth daily for 14 days. Take 2 tablets (200 mg total) by mouth daily for 14 days, then take two weeks off. venetoclax No [id number] 200mg QD Take 2 [facility] (Venclexta) 07-[address] 100 mg 00:00: 05:59 (200 mg Hospita chemo 00 :00 total) by l tablet mouth daily for 14 days. Take 2 tablets (200 mg total) by mouth daily for 14 days, then take two weeks off. venetoclax 2021- No [id number] 200mg QD Take 2 [facility] (Venclexta) 07-[address] 100 mg 00:00: 05:59 (200 mg Hospita chemo 00 :00 total) by l tablet mouth daily for 14 days. Take 2 tablets (200 mg total) by mouth daily for 14 days, then take two weeks off. venetoclax No [id number] 100mg QD Take 1 [facility] (VENCLEXTA) 07-[address] 100 mg 00:00: 00:00 (100 mg Hospita chemo 00 :00 total) by l tablet mouth daily for 14 days. Patient to take 1 tablet by mouth daily for 14 days starting 07/13/21, then take two weeks off. venetoclax No [id number] 100mg QD Take 1 [facility] (VENCLEXTA) 07-[address] 100 mg 00:00: 00:00 (100 mg Hospita chemo 00 :00 total) by l tablet mouth daily for 14 days. Patient to take 1 tablet by mouth daily for 14 days starting 07/13/21, then take two weeks off. venetoclax 2021- No [id number] 100mg QD Take 1 [facility] (VENCLEXTA) 07-[address] 100 mg 00:00: 00:00 (100 mg Hospita chemo 00 :00 total) by l tablet mouth daily for 14 days. Patient to take 1 tablet by mouth daily for 14 days starting 07/13/21, then take two weeks off. magnesium 2020-07- No 400mg Q.5D Take 1 Meth vitaliy oxide 400 09-[address] mg 00:00: 00:00 (400 mg Hospita magnesium 00 :00 total) by l tablet mouth 2 (two) times a day for 30 days. magnesium 2020-07- No 400mg Q.5D Take 1 Meth vitaliy oxide 400 09-[address] mg 00:00: 00:00 (400 mg Hospita magnesium 00 :00 total) by l tablet mouth 2 (two) times a day for 30 days. magnesium 2020-07- No 400mg Q.5D Take 1 Meth vitaliy oxide 400 09-[address] mg 00:00: 00:00 (400 mg Hospita magnesium 00 :00 total) by l tablet mouth 2 (two) times a day for 30 days. valACYclovi 2020-07- No [id number] 500mg Q.5D Take 1 Methodi r (VALTREX) 08-[address] 500 MG 00:00: 00:00 (500 mg Hospita tablet 00 :00 total) by l mouth 2 (two) times a day for 180 days. valACYclovi 2020-07- No [id number] 500mg Q.5D Take 1 Methodi r (VALTREX) 08-[address] 500 MG 00:00: 00:00 (500 mg Hospita tablet 00 :00 total) by l mouth 2 (two) times a day for 180 days. valACYclovi 2020-07- No [id number] 500mg Q.5D Take 1 Methodi r (VALTREX) 08-[address] 500 MG 00:00: 00:00 (500 mg Hospita tablet 00 :00 total) by l mouth 2 (two) times a day for 180 days. doxycycline 2020-07- No [id number] 100mg Q.5D Take 1 [facility] (VIBRAMYCIN 08-[address] ) 100 MG 00:00: 00:00 (100 mg Hospi ta capsule 00 :00 total) by l mouth 2 (two) times a day for 180 days. doxycycline 2020-07- No [id number] 100mg Q.5D Take 1 [facility] (VIBRAMYCIN 08-[address] ) 100 MG 00:00: 00:00 (100 mg Hospi ta capsule 00 :00 total) by l mouth 2 (two) times a day for 180 days. doxycycline 2020-07- No [id number] 100mg Q.5D Take 1 [facility] (VIBRAMYCIN 08-[address] ) 100 MG 00:00: 00:00 (100 mg Hospi ta capsule 00 :00 total) by l mouth 2 (two) times a day for 180 days. fluconazole 2020-07 No [id number] 200mg QD Take 1 [facility] (DIFLUCAN) 08-[address] 200 MG 00:00: 05:59 (200 mg Hospita tablet 00 :00 total) by l mouth daily for 30 days. fluconazole 2020-07- No [id number] 200mg QD Take 1 [facility] (DIFLUCAN) 08-[address] 200 MG 00:00: 05:59 (200 mg Hospita tablet 00 :00 total) by l mouth daily for 30 days. fluconazole 2020-07 No [id number] 200mg QD Take 1 [facility] (DIFLUCAN) 08-[address] 200 MG 00:00: 05:59 (200 mg Hospita tablet 00 :00 total) by l mouth daily for 30 days. venetoclax 2020-07- No [id number] 100mg QD Take 1 [facility] (VENCLEXTA) 08-[address] 100 mg 00:00: 00:00 (100 mg Hospita chemo 00 :00 total) by l tablet mouth daily for 14 doses. Patient to take 1 tablet daily for two weeks, then two weeks off venetoclax 2020-07- No [id number] 100mg QD Take 1 [facility] (VENCLEXTA) 08-[address] 100 mg 00:00: 05:59 (100 mg Hospita chemo 00 :00 total) by l tablet mouth daily for 14 doses. Patient to take 1 tablet daily for two weeks, then two weeks off venetoclax 2020-07 No [id number] 100mg QD Take 1 [facility] (VENCLEXTA) 08-[address] 100 mg 00:00: 05:59 (100 mg Hospita chemo 00 :00 total) by l tablet mouth daily for 14 doses. Patient to take 1 tablet daily for two weeks, then two weeks off bicalutamid 2020-07 [facility] (CASODEX) 07-19 st 50 mg chemo 00:00: 00:00 Hospi ta tablet 00 :00 l bicalutamid 2020-07- No [facility] (CASODEX) 07-19 st 50 mg chemo 00:00: 00:00 Hospi ta tablet 00 :00 l bicalutamid 2020-07- No [facility] (CASODEX) 07-19 st 50 mg chemo 00:00: 00:00 Hospi ta tablet 00 :00 l fluconazole 2020-07 No [id number] 200mg QD TAKE 1 [facility] (DIFLUCAN) 07-[address] 200 MG 00:00: 00:00 (200 MG Hospita tablet 00 :00 TOTAL) BY l MOUTH DAILY FOR 30 DAYS. fluconazole 2020-07 No [id number] 200mg QD TAKE 1 [facility] (DIFLUCAN) 07-[address] 200 MG 00:00: 00:00 (200 MG Hospita tablet 00 :00 TOTAL) BY l MOUTH DAILY FOR 30 DAYS. allopurinoL 2020-07- No TAKE 1 [facility] (ZYLOPRIM) 07-[address] 300 MG 00:00: 00:00 MOUTH Hospita tablet 00 :00 EVERY DAY l allopurinoL 2020-07- No TAKE 1 [facility] (ZYLOPRIM) 07-[address] 300 MG 00:00: 00:00 MOUTH Hospita tablet 00 :00 EVERY DAY l allopurinoL 2020-07- No TAKE 1 [facility] (ZYLOPRIM) 07-[address] 300 MG 00:00: 00:00 MOUTH Hospita tablet 00 :00 EVERY DAY l venetoclax 2020-07- No [id number] 200mg QD Take 2 [facility] (VENCLEXTA) 006-[address] 100 mg 00:00: 00:00 (200 mg Hospita chemo 00 :00 total) by l tablet mouth daily venetoclax 2020-07- No [id number] 200mg QD Take 2 [facility] (VENCLEXTA) 0-26 12-[address] 100 mg 00:00: 00:00 (200 mg Hospita chemo 00 :00 total) by l tablet mouth daily magnesium 2020-07 No [id number] 1g [facility] sulfate 0-25 10-25 st 1g/100mL 14:45: 16:03 Hospita D5W IVPB 00 :00 l (premix) magnesium 2020-07 No [id number] 1g [facility] sulfate 0-25 10-25 st 1g/100mL 14:45: 16:03 Hospita D5W IVPB 00 :00 l (premix) sodium 2020-07- No Flush both Meth vitaliy chloride 0-11 06-[address] 0.9% 00:00: 00:00 with 10 mL Hospit a injection 00 :00 twice l daily. sodium 2020-07- No Flush both Meth vitaliy chloride 0-11 06-[address] 0.9% 00:00: 00:00 with 10 mL Hospit a injection 00 :00 twice l daily. sodium 2020-07- No Flush both Meth vitaliy chloride 0-11 06-[address] 0.9% 00:00: 00:00 with 10 mL Hospit a injection 00 :00 twice l daily. magnesium 2020- No 1g [facility] sulfate 04-06-27 st 1g/100mL 16:00: 16:58 Hospita D5W IVPB 00 :00 l (premix) magnesium 2020- No 1g [facility] sulfate 04-06-27 st 1g/100mL 16:00: 16:58 Hospita D5W IVPB 00 :00 l (premix) traMADoL 2020- No [id number] 50mg Q6H Take 1 Metho di (Ultram) 50 03-2018 tablet (50 s t mg tablet 00:00: 04:59 mg total) Ho spita 00 :00 by mouth l every 6 (six) hours as needed for moderate pain for up to 7 days .acute pain. traMADoL 2020- No [id number] 50mg Q6H Take 1 [facility] di (Ultram) 50 03-20 tablet (50 s t mg tablet 00:00: 04:59 mg total) Ho spita 00 :00 by mouth l every 6 (six) hours as needed for moderate pain for up to 7 days .acute pain. predniSONE 2020- No [id number] 20mg Q.5D Take 1 [facility] (DELTASONE) 03-20 tablet (20 s t 20 mg 00:00: 04:59 mg total) Hospit a tablet 00 :00 by mouth 2 l (two) times a day for 5 days. predniSONE 2020- No [id number] 20mg Q.5D Take 1 [facility] (DELTASONE) 03-20 tablet (20 s t 20 mg 00:00: 04:59 mg total) Hospit a tablet 00 :00 by mouth 2 l (two) times a day for 5 days. fluconazole 2020- No [id number] 200mg QD Take 1 [facility] (DIFLUCAN) 03-[address] 200 MG 00:00: 00:00 (200 mg Hospita tablet 00 :00 total) by l mouth daily for 30 days. fluconazole 2020- No [id number] 200mg QD Take 1 [facility] (DIFLUCAN) 03-[address] 200 MG 00:00: 00:00 (200 mg Hospita tablet 00 :00 total) by l mouth daily for 30 days. allopurinoL 2020- No 300mg QD Take 1 [facility] (ZYLOPRIM) 02-[address] 300 MG 00:00: 00:00 (300 mg Hospita tablet 00 :00 total) by l mouth daily. allopurinoL 2020- No 300mg QD Take 1 [facility] (ZYLOPRIM) 02-[address] 300 MG 00:00: 00:00 (300 mg Hospita tablet 00 :00 total) by l mouth daily. venetoclax 2020- No [id number] 200mg QD Take 2 [facility] (VENCLEXTA) 02-23- tablets st 100 mg 00:00: 00:00 (200 mg Hospita chemo 00 :00 total) by l tablet mouth daily for 270 days. venetoclax 2020- No [id number] 200mg QD Take 2 [facility] (VENCLEXTA) 8-16 10-[address] 100 mg 00:00: 00:00 (200 mg Hospita chemo 00 :00 total) by l tablet mouth daily for 270 days. fluconazole 2020- No 200mg QD Take 1 [facility] (DIFLUCAN) 02-[address] 200 MG 00:00: 00:00 (200 mg Hospita tablet 00 :00 total) by l mouth daily for 30 days. fluconazole 2020- No 200mg QD Take 1 [facility] (DIFLUCAN) 02-[address] 200 MG 00:00: 00:00 (200 mg Hospita tablet 00 :00 total) by l mouth daily for 30 days. isavuconazo 2020- No 372mg QD Take 2 [facility] nium 02-[address] (Cresemba) 00:00: 00:00 (372 mg Hos hal 186 mg 00 :00 total) by l capsule mouth capsule daily for 180 days. isavuconazo 2020- No 372mg QD Take 2 [facility] nium 02-[address] (Cresemba) 00:00: 00:00 (372 mg Hos hal 186 mg 00 :00 total) by l capsule mouth capsule daily for 180 days. isavuconazo 2020- No [id number] 372mg QD Take 2 [facility] nium 02-19- capsules st (Cresemba) 00:00: 05:59 (372 mg Hos hal 186 mg 00 :00 total) by l capsule mouth capsule daily for 90 days. isavuconazo 2020- No [id number] 372mg QD Take 2 [facility] nium 02-19- capsules st (Cresemba) 00:00: 05:59 (372 mg Hos hal 186 mg 00 :00 total) by l capsule mouth capsule daily for 90 days. doxycycline 2020- No [id number] 100mg Q.5D Take 1 [facility] (VIBRAMYCIN 02-[address] ) 100 MG 00:00: 00:00 (100 mg Hospi ta capsule 00 :00 total) by l mouth 2 (two) times a day for 180 days. valACYclovi 2020- No [id number] 500mg Q.5D Take 1 [facility] r (VALTREX) 02-[address] 500 MG 00:00: 00:00 (500 mg Hospita tablet 00 :00 total) by l mouth 2 (two) times a day for 180 days. doxycycline 2020- No [id number] 100mg Q.5D Take 1 [facility] (VIBRAMYCIN 02-[address] ) 100 MG 00:00: 00:00 (100 mg Hospi ta capsule 00 :00 total) by l mouth 2 (two) times a day for 180 days. valACYclovi 2020- No [id number] 500mg Q.5D Take 1 [facility] r (VALTREX) 02-[address] 500 MG 00:00: 00:00 (500 mg Hospita tablet 00 :00 total) by l mouth 2 (two) times a day for 180 days. sodium 2020- No Flush both Meth vitaliy chloride 8-11 10-[address] 0.9% 00:00: 00:00 with 10 mL Hospit a injection 00 :00 twice l daily. sodium 2020- No Flush both Meth vitaliy chloride 8-11 10-[address] 0.9% 00:00: 00:00 with 10 mL Hospit a injection 00 :00 twice l daily. ondansetron 2020- No 4mg Q8H Take 1 [facility] ODT 02-18-11 tablet (4 st (ZOFRAN-ODT 00:00: 04:59 mg total) Hospita ) 4 MG 00 :00 by mouth l disintegrat every 8 ing tablet (eight) hours as needed for nausea or vomiting for up to 30 days. ondansetron 2020- No 4mg Q8H Take 1 [facility] ODT 8-05 19-11 tablet (4 st (ZOFRAN-ODT 00:00: 04:59 mg total) Hospita ) 4 MG 00 :00 by mouth l disintegrat every 8 ing tablet (eight) hours as needed for nausea or vomiting for up to 30 days. amLODIPine 1-0 Yes 5mg QD Take 5 mg [facility] (NORVASC) 5 2-[address] mg tablet 00:00: daily. Hospit a l amLODIPine 2021-0 Yes 5mg QD Take 5 mg [facility] (NORVASC) 5 2-[address] mg tablet 00:00: daily. Hospit a l amLODIPine 2021-0 Yes 5mg QD Take 5 mg [facility] (NORVASC) 5 2-[address] mg tablet 00:00: daily. Hospit a 00 l carvediloL 1-0 Yes 12.5mg Q.5D Take 12.5 [facility] (COREG) 2-[address] 12.5 MG 00:00: mouth 2 Hospita tablet 00 (two) l times a day with meals. glimepiride 2021-0 Yes 4mg Q.5D Take 4 mg [facility] (AMARYL) 4 2-[address] MG tablet 00:00: (two) Hospita 00 times a l day. pravastatin 2021-0 Yes 20mg QD Take 20 mg [facility] (PRAVACHOL) 2-[address] 20 MG 00:00: every Hospita tablet 00 morning. l carvediloL 2021-0 Yes 12.5mg Q.5D Take 12.5 [facility] (COREG) 2-[address] 12.5 MG 00:00: mouth 2 Hospita tablet 00 (two) l times a day with meals. glimepiride 2021-0 Yes 4mg Q.5D Take 4 mg [facility] (AMARYL) 4 2-[address] MG tablet 00:00: (two) Hospita 00 times a l day. pravastatin 2021-0 Yes 20mg QD Take 20 mg [facility] (PRAVACHOL) 2-[address] 20 MG 00:00: every Hospita tablet 00 morning. l carvediloL 2021-0 Yes 12.5mg Q.5D Take 1 [facility] (COREG) 2-[address] 12.5 MG 00:00: (12.5 mg Hospit a tablet 00 total) by l mouth 2 (two) times a day with meals. Space 6 hours from relugolix (orgovyx) glimepiride 2021-0 Yes 4mg Q.5D Take 4 mg [facility] (AMARYL) 4 2-[address] MG tablet 00:00: (two) Hospita 00 times a l day. pravastatin Yes 20mg QD Take 20 mg [facility] (PRAVACHOL) 2-[address] 20 MG 00:00: every Hospita tablet 00 morning. l lisinopriL- 0 2- No 2{tbl} QD Take 2 M [facility]i hydrochloro 2-05 04-18 tablets by s t thiazide 00:00: 00:00 mouth Hospita (PRINZIDE) 00 :00 daily. l 20-12.5 mg per tablet metFORMIN 0 2021- No 500mg QD Take 500 [facility] (GLUCOPHAGE 2-05 04-[address] ) 500 mg 00:00: 00:00 mouth Hospita tablet 00 :00 every l morning. lisinopriL- 2021- No 2{tbl} QD Take 2 M [facility]i hydrochloro 2-05 04-18 tablets by s t thiazide 00:00: 00:00 mouth Hospita (PRINZIDE) 00 :00 daily. l 20-12.5 mg per tablet metFORMIN 2- No 500mg QD Take 500 [facility] (GLUCOPHAGE 2-05 04-[address] ) 500 mg 00:00: 00:00 mouth Hospita tablet 00 :00 every l morning. lisinopriL- 2021- No 2{tbl} QD Take 2 M [facility]i hydrochloro 2-05 04-18 tablets by s t thiazide 00:00: 00:00 mouth Hospita (PRINZIDE) 00 :00 daily. l 20-12.5 mg per tablet metFORMIN 0 2- No 500mg QD Take 500 [facility] (GLUCOPHAGE 2-05 04-[address] ) 500 mg 00:00: 00:00 mouth Hospita tablet 00 :00 every l morning. Lumigan Yes 1[drp] QD Administer Me thodi 0.01 % 2-[address] ophthalmic 00:00: both eyes Ho spita drops 00 nightly. l Combigan Yes 1[drp] Q12H Administer M ethodi 0.2-0.5 % 2-[address] ophthalmic 00:00: both eyes Ho spita solution 00 every 12 l (twelve) hours. Lumigan 2020-0 Yes 1[drp] QD Administer Me thodi 0.01 % 2-[address] ophthalmic 00:00: both eyes Ho spita drops 00 nightly. l Combigan 2020-0 Yes 1[drp] Q12H Administer M ethodi 0.2-0.5 % 2-[address] ophthalmic 00:00: both eyes Ho spita solution 00 every 12 l (twelve) hours. Lumigan 2020-0 Yes 1[drp] QD Administer Me thodi 0.01 % 2-[address] ophthalmic 00:00: both eyes Ho spita drops 00 nightly. l Combigan 0 Yes 1[drp] Q12H Administer M ethodi 0.2-0.5 % 2-[address] ophthalmic 00:00: both eyes Ho spita solution 00 every 12 l (twelve) hours. tamsulosin 0 Yes .4mg QD Take 0.4 [facility] (FLOMAX) 1-[address] 0.4 mg 00:00: mouth Hospita capsule 00 nightly. l tamsulosin 2020-0 Yes .4mg QD Take 0.4 [facility] (FLOMAX) 1-[address] 0.4 mg 00:00: mouth Hospita capsule 00 nightly. l tamsulosin 2020-0 Yes .4mg QD Take 0.4 [facility] (FLOMAX) 1-[address] 0.4 mg 00:00: mouth Hospita capsule 00 nightly. l OneTouch 2019-07 Yes [facility] Ultra Blue 2-21 st Test Strip 00:00: Hospita strip test 00 l strips Basaglar 2019-07 Yes 25U Q.5D Inject [facility] KwikPen 2- 25-30 st U-100 00:00: Units Hospita Insulin 100 00 under the l unit/mL (3 skin 2 mL) (two) injection times a (pen) day. BD 2019-07 Yes [facility] Ultra-Fine 2-21 st Orig Pen 00:00: Hospita Needle 29 00 l gauge x 1/2" needle OneTouch 2019-07 Yes [facility] Ultra Blue 2-21 st Test Strip 00:00: Hospita strip test 00 l strips Basaglar 2019-07 Yes 25U Q.5D Inject [facility] KwikPen 2--30 st U-100 00:00: Units [facility]ospita Insulin 100 00 under the l unit/mL (3 skin 2 mL) (two) injection times a (pen) day. BD 2019-07 Yes [facility] Ultra-Fine - st Orig Pen 00:00: Hospita Needle 29 l gauge x 1/2" needle OneTouch 2019-07 Yes [facility] Ultra Blue - st Test Strip 00:00: Hospita strip test 00 l strips Basaglar 2019-07 Yes 25U Q.5D Inject [facility] KwikPen 08-31- st U-100 00:00: Units Hospita Insulin 100 00 under the l unit/mL (3 skin 2 mL) (two) injection times a (pen) day. BD 2019-07 Yes [facility] Ultra-Fine - st Orig Pen 00:00: Hospita Needle 29 l gauge x 1/2" needle amlodipine amlodipine No 1 Q1D amlodipine [facility] 5 mg tablet 5 mg tablet 5 mg F amily Take 1 Take 1 tablet Practic tablet tablet Take 1 e every day every day tablet by oral by oral every day route. route. by oral route. carvedilol carvedilol No 1 BID carvedilol [facility] 12.5 mg 12.5 mg 12.5 mg Family tablet Take tablet Take tablet Practic 1 tablet 1 tablet Take 1 e twice a day twice a day tablet by oral by oral twice a route. route. day by oral route. Combigan Combigan No Combigan Belinda larissa 0.2 %-0.5 % 0.2 %-0.5 % 0.2 %-0.5 Family eye drops eye drops % eye Prac tic INSTILL 1 INSTILL 1 drops e DROP INTO DROP INTO INSTILL 1 AFFECTED AFFECTED DROP INTO EYE(S) BY EYE(S) BY AFFECTED OPHTHALMIC OPHTHALMIC EYE(S) BY ROUTE EVERY ROUTE EVERY OPHTHALMIC 12 HOURS 12 HOURS ROUTE EVERY 12 HOURS glimepiride glimepiride No 1 Q1D glimepirid [facility] 4 mg tablet 4 mg tablet e 4 mg Family Take 1 Take 1 tablet [facility] tablet tablet Take 1 e every day every day tablet by oral by oral every day route. route. by oral route. lisinopril lisinopril No 1 BID lisinopril [facility] 20 20 20 Family mg-hydrochl mg-hydrochl mg-hydroch [facility] orothiazide orothiazide lorothiazi e 12.5 mg 12.5 mg de 12.5 mg tablet Take tablet Take tablet 1 tablet 1 tablet Take 1 twice a day twice a day tablet by oral by oral twice a route. route. day by oral route. Lumigan Lumigan No Lumigan [facility] 0.01 % eye 0.01 % eye 0.01 % eye Family drops drops drops Practic e metformin metformin No 1 TID metformin [facility] 500 mg 500 mg 500 mg Family tablet Take tablet Take tablet [facility] 1 tablet 3 1 tablet 3 Take 1 e times a day times a day tablet 3 by oral by oral times a route. route. day by oral route. pravastatin pravastatin No 1 Q1D pravastati [facility] 20 mg 20 mg n 20 mg Family tablet Take tablet Take tablet Pract[facility] 1 tablet 1 tablet Take 1 e every day every day tablet by oral by oral every day route. route. by oral route. tamsulosin tamsulosin No 1capsul Q1D tamsulosin [facility] 0.4 mg 0.4 mg e(s) 0.4 mg Family capsule capsule capsule Practi c Take 1 Take 1 Take 1 e capsule capsule capsule every day every day every day by oral by oral by oral route. route. route. Immunizations Ordered Immunization Filled Immunization Date Status Commen ts Source Name Name Influenza Virus 2022-05-25 Completed Norma mcintosh - Vaccine, age 7 00:00:00 External months and up Shingles IM 2021-07-06 Completed Norma arriaga - (Shingrix) 00:00:00 [facility] PFIZER COVID-19 MRNA 2021-05-25 Completed [facility] VACCINATION 00:00:00 [facility] PFIZER COVID-19 MRNA 2021-05-25 Completed [facility] VACCINATION 00:00:00 [facility] PFIZER COVID-19 MRNA 2021-05-25 Completed [facility]ist VACCINATION 00:00:00 [facility] PFIZER COVID-19 MRNA 2020-09-27 Completed [facility] VACCINATION 00:00:00 [facility] PFIZER COVID-19 MRNA 2020-09-27 Completed [facility]ist VACCINATION 00:00:00 [facility] COVID-19 MRNA 2020-09-27 Completed [facility]:00:00 Hospital PFIZER COVID-19 MRNA 2020-09-06 Completed [facility] VACCINATION 00:00:00 Hospital PFIZER COVID-19 MRNA 2020-09-06 Completed [facility]ist VACCINATION 00:00:00 [facility] Shinglsonal IM 2020-06-30 Completed Norma Oswald d - (Shingrix) 00:00:00 External influenza, influenza, 2020-06-10 Completed [facility] injectable, injectable, 00:00:00 Practice quadrivalent quadrivalent Influenza Virus 2020-06-10 Completed Norma Ferguson ybold - Vaccine, Split, up 00:00:00 [facility] Catcher al to age 4 influenza, influenza, 2018-07-11 Completed [facility] injectable, injectable, 00:00:00 Practice quadrivalent quadrivalent Influenza Virus 2018-07-11 Completed Norma Ferguson ybold - Vaccine, Split, up 00:00:00 Feeder Catcher al to age 4 Vital Signs Vital Name Observation Time Observation Value Comments Source Systolic blood 2022-06-29 16:15:00 112 mm[Hg] Norma Seybold - pressure External Diastolic blood 2022-06-29 16:15:00 56 mm[Hg] Alannah y Seybold - pressure External Heart rate 2022-06-29 16:15:00 85 /min Norma S kilobold - External Body temperature 2022-06-29 16:15:00 36 Niya Lakshmi ey Seybold - External Respiratory rate 2022-06-29 16:15:00 15 /min Lakshmi ey Seybold - External Body height 2022-06-29 16:15:00 177.8 cm Norma S eybold - External Body weight 2022-06-29 16:15:00 87.998 kg Norma S eybold - External BMI 2022-06-29 16:15:00 27.84 kg/m2 Norma S eybold - External Systolic blood 2022-06-23 19:19:00 142 mm[Hg] [facility] pressure Diastolic blood 2022-06-23 19:19:00 64 mm[Hg] [facility] pressure Heart rate 2022-06-23 19:19:00 83 /min [facility] Body temperature 2022-06-23 19:19:00 36.61 Niya [facility] Respiratory rate 2022-06-23 19:19:00 16 /min [facility] Body height 2022-06-23 19:19:00 177.8 cm [facility] Body weight 2022-06-23 19:19:00 85.957 kg [facility] BMI 2022-06-23 19:19:00 27.19 kg/m2 [facility] Oxygen saturation in 2022-06-23 19:19:00 97 /min [facility] Arterial blood by Pulse oximetry Systolic blood 2022-03-08 15:05:00 129 mm[Hg] [facility] pressure Diastolic blood 2022-03-08 15:05:00 62 mm[Hg] [facility] pressure Heart rate 2022-03-08 15:05:00 66 /min [facility] Body temperature 2022-03-08 15:05:00 36.33 Niya [facility] Respiratory rate 2022-03-08 15:05:00 18 /min [facility] Body height 2022-03-08 15:05:00 177.8 cm [facility] Body weight 2022-03-08 15:05:00 86.909 kg [facility] BMI 2022-03-08 15:05:00 27.49 kg/m2 [facility] Oxygen saturation in 2022-03-08 15:05:00 98 /min [facility] Arterial blood by Pulse oximetry Procedures Procedure Date / Time Performing Clinician Source Performed CBC WITH PLATELET AND 2022-07-09 20:50:00 [facility] DIFFERENTIAL COMPREHENSIVE METABOLIC 2022-07-09 20:50:00 [facility] PANEL URIC ACID LEVEL 2022-07-09 20:50:00 [facility] QUANTAFLO 2022-06-29 16:54:32 Sriram Echavarria ld - External CBC WITH PLATELET AND 2022-06-28 15:15:00 [facility] DIFFERENTIAL COMPREHENSIVE METABOLIC 2022-06-28 15:15:00 [facility] PANEL ESTIMATED GFR 2022-06-28 15:15:00 [facility] MANUAL DIFFERENTIAL 2022-06-28 15:15:00 [facility] COMPREHENSIVE METABOLIC 2022-06-23 17:36:00 [facility] PANEL PROSTATE SPECIFIC ANTIGEN 2022-06-23 17:36:00 [facility] TESTOSTERONE 2022-06-23 17:36:00 [facility] LIPID PANEL 2022-06-23 17:36:00 [facility] VITAMIN D 25 HYDROXY 2022-06-23 17:36:00 [facility] LEVEL VITAMIN B12 LEVEL 2022-06-23 17:36:00 [facility] HEMOGLOBIN A1C 2022-06-23 17:36:00 [facility] ESTIMATED GFR 2022-06-23 17:36:00 [facility] COMPREHENSIVE METABOLIC 2022-06-23 17:34:00 [facility] PANEL CBC WITH PLATELET AND 2022-06-23 17:34:00 [facility] DIFFERENTIAL ESTIMATED GFR 2022-06-23 17:34:00 [facility] MANUAL DIFFERENTIAL 2022-06-23 17:34:00 [facility] SURGICAL PATHOLOGY 2022-06-15 19:49:00 [facility] REQUEST BONE MARROW BIOPSY W/OUT 2022-06-15 19:19:11 [facility] SEDATION BCM AML FISH PANEL 2022-06-15 18:06:00 [facility] MISCELLANEOUS REFERRAL 2022-06-15 18:06:00 [facility] TEST IDH 2022-06-15 18:06:00 [facility] ospital BONE MARROW TRAY 2022-06-15 18:06:00 [facility] NPM1 MUTATION PCR QNT 2022-06-15 18:06:00 [facility] CEBPA MUTATION DETECTION 2022-06-15 18:06:00 [facility] FLOW CYTOMETRY EVALUATION 2022-06-15 17:33:00 [facility] CBC WITH PLATELET AND 2022-06-14 19:38:00 [facility] DIFFERENTIAL COMPREHENSIVE METABOLIC 2022-06-14 19:38:00 [facility] PANEL MAGNESIUM LEVEL 2022-06-14 19:38:00 [facility] ESTIMATED GFR 2022-06-14 19:38:00 [facility] MANUAL DIFFERENTIAL 2022-06-14 19:38:00 [facility] CBC WITH PLATELET AND 2022-06-07 18:53:00 [facility] DIFFERENTIAL COMPREHENSIVE METABOLIC 2022-06-07 18:53:00 [facility] PANEL URIC ACID LEVEL 2022-06-07 18:53:00 [facility] CBC WITH PLATELET AND 2022-05-31 18:42:00 [facility] DIFFERENTIAL COMPREHENSIVE METABOLIC 2022-05-31 18:42:00 [facility] PANEL URIC ACID LEVEL 2022-05-31 18:42:00 [facility] CBC WITH PLATELET AND 2022-05-24 15:59:00 [facility] DIFFERENTIAL COMPREHENSIVE METABOLIC 2022-05-24 15:59:00 [facility] PANEL LDH 2022-05-24 15:59:00 [facility] URIC ACID LEVEL 2022-05-24 15:59:00 [facility] ESTIMATED GFR 2022-05-24 15:59:00 [facility] MANUAL DIFFERENTIAL 2022-05-24 15:59:00 [facility] URIC ACID LEVEL 2022-05-17 15:58:00 [facility] COMPREHENSIVE METABOLIC 2022-05-17 15:58:00 [facility] PANEL CBC WITH PLATELET AND 2022-05-17 15:58:00 [facility] DIFFERENTIAL CBC WITH PLATELET AND 2022-05-10 14:05:00 [facility] DIFFERENTIAL COMPREHENSIVE METABOLIC 2022-05-10 14:05:00 [facility] PANEL URIC ACID LEVEL 2022-05-10 14:05:00 [facility] ESTIMATED GFR 2022-05-10 14:05:00 [facility] CBC WITH PLATELET AND 2022-05-03 14:42:00 [facility] DIFFERENTIAL COMPREHENSIVE METABOLIC 2022-05-03 14:42:00 [facility] PANEL MAGNESIUM LEVEL 2022-05-03 14:42:00 [facility] ESTIMATED GFR 2022-05-03 14:42:00 [facility] CBC WITH PLATELET AND 2022-04-26 16:55:00 [facility] DIFFERENTIAL COMPREHENSIVE METABOLIC 2022-04-26 16:55:00 [facility] PANEL MAGNESIUM LEVEL 2022-04-26 16:55:00 [facility] ESTIMATED GFR 2022-04-26 16:55:00 [facility] MANUAL DIFFERENTIAL 2022-04-26 16:55:00 [facility] CBC WITH PLATELET AND 2022-04-19 14:48:00 [facility] DIFFERENTIAL COMPREHENSIVE METABOLIC 2022-04-19 14:48:00 [facility] PANEL ESTIMATED GFR 2022-04-19 14:48:00 [facility] SMEAR REVIEW 2022-04-19 14:48:00 [facility] CBC WITH PLATELET AND 2022-04-12 14:36:00 [facility] DIFFERENTIAL COMPREHENSIVE METABOLIC 2022-04-12 14:36:00 [facility] PANEL ESTIMATED GFR 2022-04-12 14:36:00 [facility] MANUAL DIFFERENTIAL 2022-04-12 14:36:00 [facility] CBC WITH PLATELET AND 2022-04-05 14:22:00 [facility] DIFFERENTIAL COMPREHENSIVE METABOLIC 2022-04-05 14:22:00 [facility] PANEL PROSTATE SPECIFIC ANTIGEN 2022-04-05 14:22:00 [facility] TESTOSTERONE 2022-04-05 14:22:00 [facility] LIPID PANEL 2022-04-05 14:22:00 [facility] VITAMIN D 25 HYDROXY 2022-04-05 14:22:00 [facility] LEVEL VITAMIN B12 LEVEL 2022-04-05 14:22:00 [facility] HEMOGLOBIN A1C 2022-04-05 14:22:00 [facility] ESTIMATED GFR 2022-04-05 14:22:00 [facility] MANUAL DIFFERENTIAL 2022-04-05 14:22:00 [facility] MANUAL DIFFERENTIAL 2022-04-05 14:22:00 [facility] MRI PROSTATE WWO CONTRAST 2022-04-01 15:40:00 [facility] POC GLUCOSE 2022-04-01 14:53:00 [facility] CBC WITH PLATELET AND 2022-03-29 15:05:00 [facility] DIFFERENTIAL COMPREHENSIVE METABOLIC 2022-03-29 15:05:00 [facility] PANEL ESTIMATED GFR 2022-03-29 15:05:00 [facility] CBC WITH PLATELET AND 2022-03-25 15:44:00 [facility] DIFFERENTIAL ESTIMATED GFR 2022-03-25 15:42:00 [facility] LDH 2022-03-22 14:19:00 [facility] CBC WITH PLATELET AND 2022-03-22 14:19:00 [facility] DIFFERENTIAL COMPREHENSIVE METABOLIC 2022-03-22 14:19:00 [facility] PANEL MAGNESIUM LEVEL 2022-03-22 14:19:00 [facility] ESTIMATED GFR 2022-03-22 14:19:00 [facility] CBC WITH PLATELET AND 2022-03-08 14:40:00 [facility] DIFFERENTIAL COMPREHENSIVE METABOLIC 2022-03-08 14:40:00 [facility] PANEL ESTIMATED GFR 2022-03-08 14:40:00 [facility] MANUAL DIFFERENTIAL 2022-03-08 14:40:00 [facility] CBC WITH PLATELET AND 2022-03-01 14:13:00 [facility] DIFFERENTIAL COMPREHENSIVE METABOLIC 2022-03-01 14:13:00 [facility] PANEL ESTIMATED GFR 2022-03-01 14:13:00 [facility] MANUAL DIFFERENTIAL 2022-03-01 14:13:00 [facility] CBC WITH PLATELET AND 2022-02-22 13:48:00 [facility] DIFFERENTIAL COMPREHENSIVE METABOLIC 2022-02-22 13:48:00 [facility] PANEL HEMOGLOBIN A1C 2022-02-22 13:48:00 [facility] ESTIMATED GFR 2022-02-22 13:48:00 [facility] MANUAL DIFFERENTIAL 2022-02-22 13:48:00 [facility] COMPREHENSIVE METABOLIC 2022-02-15 14:12:00 [facility] PANEL HC COMPLETE BLD COUNT 2022-02-15 14:12:00 [facility] W/AUTO DIFF ESTIMATED GFR 2022-02-15 14:12:00 [facility] HC COMPLETE BLD COUNT 2022-02-08 18:12:00 [facility] W/AUTO DIFF COMPREHENSIVE METABOLIC 2022-02-08 18:12:00 [facility] PANEL MAGNESIUM LEVEL 2022-02-08 18:12:00 [facility] ESTIMATED GFR 2022-02-08 18:12:00 [facility] TYPE AND SCREEN 2022-02-01 13:58:00 [facility] CBC WITH PLATELET AND 2022-02-01 13:58:00 [facility] DIFFERENTIAL COMPREHENSIVE METABOLIC 2022-02-01 13:58:00 [facility] PANEL LDH 2022-02-01 13:58:00 [facility] URIC ACID LEVEL 2022-02-01 13:58:00 [facility] MAGNESIUM LEVEL 2022-02-01 13:58:00 [facility] ESTIMATED GFR 2022-02-01 13:58:00 [facility] MANUAL DIFFERENTIAL 2022-02-01 13:58:00 [facility] TYPE AND SCREEN 2022-01-25 14:01:00 [facility] HC COMPLETE BLD COUNT 2022-01-25 14:01:00 [facility] W/AUTO DIFF COMPREHENSIVE METABOLIC 2022-01-25 14:01:00 [facility] PANEL LDH 2022-01-25 14:01:00 [facility] URIC ACID LEVEL 2022-01-25 14:01:00 [facility] MAGNESIUM LEVEL 2022-01-25 14:01:00 [facility] ESTIMATED GFR 2022-01-25 14:01:00 [facility] HC COMPLETE BLD COUNT 2022-01-18 14:01:00 [facility] W/AUTO DIFF COMPREHENSIVE METABOLIC 2022-01-18 14:01:00 [facility] PANEL ESTIMATED GFR 2022-01-18 14:01:00 [facility] HC COMPLETE BLD COUNT 2022-01-12 14:17:00 [facility] W/AUTO DIFF COMPREHENSIVE METABOLIC 2022-01-12 14:17:00 [facility] PANEL LDH 2022-01-12 14:17:00 [facility] URIC ACID LEVEL 2022-01-12 14:17:00 [facility] MAGNESIUM LEVEL 2022-01-12 14:17:00 [facility] ESTIMATED GFR 2022-01-12 14:17:00 [facility] PROSTATE SPECIFIC ANTIGEN 2022-01-07 14:57:00 [facility] TESTOSTERONE 2022-01-07 14:57:00 [facility] THYROID STIMULATING 2022-01-07 14:57:00 [facility] HORMONE CBC WITH PLATELET AND 2022-01-04 14:33:00 [facility] DIFFERENTIAL COMPREHENSIVE METABOLIC 2022-01-04 14:33:00 [facility] PANEL MAGNESIUM LEVEL 2022-01-04 14:33:00 [facility] ESTIMATED GFR 2022-01-04 14:33:00 [facility] MANUAL DIFFERENTIAL 2022-01-04 14:33:00 [facility] HC COMPLETE BLD COUNT 2021-12-28 14:57:00 [facility] W/AUTO DIFF COMPREHENSIVE METABOLIC 2021-12-28 14:57:00 [facility] PANEL ESTIMATED GFR 2021-12-28 14:57:00 [facility] CBC WITH PLATELET AND 2021-12-21 16:00:00 [facility] DIFFERENTIAL MAGNESIUM LEVEL 2021-12-21 16:00:00 [facility] URIC ACID LEVEL 2021-12-21 16:00:00 [facility] COMPREHENSIVE METABOLIC 2021-12-21 16:00:00 [facility] PANEL LDH 2021-12-21 16:00:00 [facility] ESTIMATED GFR 2021-12-21 16:00:00 [facility] MANUAL DIFFERENTIAL 2021-12-21 16:00:00 [facility] HC COMPLETE BLD COUNT 2021-12-14 15:27:00 [facility] W/AUTO DIFF COMPREHENSIVE METABOLIC 2021-12-14 15:27:00 [facility] PANEL LDH 2021-12-14 15:27:00 [facility] URIC ACID LEVEL 2021-12-14 15:27:00 [facility] MAGNESIUM LEVEL 2021-12-14 15:27:00 [facility] ESTIMATED GFR 2021-12-14 15:27:00 [facility] HC COMPLETE BLD COUNT 2021-12-09 19:08:00 [facility] W/AUTO DIFF COMPREHENSIVE METABOLIC 2021-12-09 19:08:00 [facility] PANEL ESTIMATED GFR 2021-12-09 19:08:00 [facility] HC COMPLETE BLD COUNT 2021-12-08 16:18:00 [facility] W/AUTO DIFF COMPREHENSIVE METABOLIC 2021-12-08 16:18:00 [facility] PANEL MAGNESIUM LEVEL 2021-12-08 16:18:00 [facility] ESTIMATED GFR 2021-12-08 16:18:00 [facility] CBC WITH PLATELET AND 2021-11-30 16:08:00 [facility] DIFFERENTIAL COMPREHENSIVE METABOLIC 2021-11-30 16:08:00 [facility] PANEL MAGNESIUM LEVEL 2021-11-30 16:08:00 [facility] ESTIMATED GFR 2021-11-30 16:08:00 [facility] MANUAL DIFFERENTIAL 2021-11-30 16:08:00 [facility]EN 2021-11-23 14:49:00 [facility] CBC WITH PLATELET AND 2021-11-23 14:49:00 [facility] DIFFERENTIAL COMPREHENSIVE METABOLIC 2021-11-23 14:49:00 [facility] PANEL LDH 2021-11-23 14:49:00 [facility] URIC ACID LEVEL 2021-11-23 14:49:00 [facility] MAGNESIUM LEVEL 2021-11-23 14:49:00 [facility] ESTIMATED GFR 2021-11-23 14:49:00 [facility] MANUAL DIFFERENTIAL 2021-11-23 14:49:00 [facility] CBC WITH PLATELET AND 2021-11-16 15:35:00 [facility] DIFFERENTIAL COMPREHENSIVE METABOLIC 2021-11-16 15:35:00 [facility] PANEL LDH 2021-11-16 15:35:00 [facility] URIC ACID LEVEL 2021-11-16 15:35:00 [facility] MAGNESIUM LEVEL 2021-11-16 15:35:00 [facility] ESTIMATED GFR 2021-11-16 15:35:00 [facility] MANUAL DIFFERENTIAL 2021-11-16 15:35:00 [facility] HC COMPLETE BLD COUNT 2021-11-09 14:15:00 [facility] W/AUTO DIFF Alejo COMPREHENSIVE METABOLIC 2021-11-09 14:15:00 [facility] PANEL Alejo ESTIMATED GFR 2021-11-09 14:15:00 [facility] Alejo MAGNESIUM LEVEL 2021-11-02 16:22:00 [facility] COMPREHENSIVE METABOLIC 2021-11-02 16:22:00 [facility] PANEL HC COMPLETE BLD COUNT 2021-11-02 16:22:00 [facility] W/AUTO DIFF ESTIMATED GFR 2021-11-02 16:22:00 [facility] PROSTATE SPECIFIC ANTIGEN 2021-10-26 19:04:00 [facility] TESTOSTERONE 2021-10-26 19:04:00 [facility] VITAMIN D 1,25 DIHYDROXY 2021-10-26 19:04:00 [facility] LEVEL, SERUM HC COMPLETE BLD COUNT 2021-10-26 19:04:00 [facility] W/AUTO DIFF COMPREHENSIVE METABOLIC 2021-10-26 19:04:00 [facility] PANEL MAGNESIUM LEVEL 2021-10-26 19:04:00 [facility] ESTIMATED GFR 2021-10-26 19:04:00 [facility] SURGICAL PATHOLOGY 2021-10-15 17:08:00 [facility] REQUEST BONE MARROW BIOPSY W/OUT 2021-10-15 16:10:05 Deanna Deleon [facility] SEDATION FLOW CYTOMETRY EVALUATION 2021-10-15 15:58:00 Geovanny Recinos [facility] Alejo BONE MARROW TRAY 2021-10-15 15:58:00 [facility] MISCELLANEOUS REFERRAL 2021-10-15 15:58:00 [facility] TEST BCM AML FISH PANEL 2021-10-15 15:58:00 [facility] MISCELLANEOUS REFERRAL 2021-10-15 15:58:00 [facility] TEST MISCELLANEOUS REFERRAL 2021-10-15 15:58:00 [facility] TEST CBC WITH PLATELET AND 2021-10-15 13:52:00 [facility] DIFFERENTIAL COMPREHENSIVE METABOLIC 2021-10-15 13:52:00 [facility] PANEL MAGNESIUM LEVEL 2021-10-15 13:52:00 [facility] ESTIMATED GFR 2021-10-15 13:52:00 [facility] URIC ACID LEVEL 2021-10-15 13:52:00 [facility] LDH 2021-10-15 13:52:00 [facility] MANUAL DIFFERENTIAL 2021-10-15 13:52:00 [facility] CBC WITH PLATELET AND 2021-10-05 16:05:00 Gemma [facility] DIFFERENTIAL COMPREHENSIVE METABOLIC 2021-10-05 16:05:00 [facility] PANEL LDH 2021-10-05 16:05:00 [facility] URIC ACID LEVEL 2021-10-05 16:05:00 [facility] MAGNESIUM LEVEL 2021-10-05 16:05:00 [facility] ESTIMATED GFR 2021-10-05 16:05:00 [facility] MANUAL DIFFERENTIAL 2021-10-05 16:05:00 [facility] MRI PROSTATE WWO CONTRAST 2021-10-05 15:09:00 [facility] POC GLUCOSE 2021-10-05 14:19:00 [facility] TYPE AND SCREEN 2021-09-28 18:25:00 [facility] CBC WITH PLATELET AND 2021-09-28 18:25:00 [facility] DIFFERENTIAL COMPREHENSIVE METABOLIC 2021-09-28 18:25:00 [facility] PANEL LDH 2021-09-28 18:25:00 [facility] URIC ACID LEVEL 2021-09-28 18:[facility] 2021-09-28 18:25:00 [facility] ESTIMATED GFR 2021-09-28 18:25:00 [facility] MANUAL DIFFERENTIAL 2021-09-28 18:25:00 [facility] CBC WITH PLATELET AND 2021-09-21 15:33:00 [facility] DIFFERENTIAL COMPREHENSIVE METABOLIC 2021-09-21 15:33:00 [facility] PANEL LDH 2021-09-21 15:33:00 [facility] URIC ACID LEVEL 2021-09-21 15:33:00 [facility] MAGNESIUM LEVEL 2021-09-21 15:33:00 [facility] ESTIMATED GFR 2021-09-21 15:33:00 [facility] MANUAL DIFFERENTIAL 2021-09-21 15:33:00 [facility] PROSTATE SPECIFIC ANTIGEN 2021-09-15 17:20:[address] [facility] [place] TESTOSTERONE 2021-09-15 17:20:00 [facility] [place] TYPE AND SCREEN 2021-09-15 17:20:00 [facility] CBC WITH PLATELET AND 2021-09-15 17:20:00 [facility] DIFFERENTIAL COMPREHENSIVE METABOLIC 2021-09-15 17:20:00 [facility] PANEL LDH 2021-09-15 17:20:00 [facility] URIC ACID LEVEL 2021-09-15 17:20:00 [facility] MAGNESIUM LEVEL 2021-09-15 17:20:00 [facility] ESTIMATED GFR 2021-09-15 17:20:00 [facility] MANUAL DIFFERENTIAL 2021-09-15 17:20:00 [facility] HC COMPLETE BLD COUNT 2021-09-07 17:04:00 [facility] W/AUTO DIFF COMPREHENSIVE METABOLIC 2021-09-07 17:04:00 [facility] PANEL ESTIMATED GFR 2021-09-07 17:04:00 [facility] CBC WITH PLATELET AND 2021-09-03 16:20:00 [facility] DIFFERENTIAL COMPREHENSIVE METABOLIC 2021-09-03 16:20:00 [facility] PANEL MAGNESIUM LEVEL 2021-09-03 16:20:00 [facility] ESTIMATED GFR 2021-09-03 16:20:00 [facility] MANUAL DIFFERENTIAL 2021-09-03 16:20:00 [facility] CBC WITH PLATELET AND 2021-08-31 18:40:00 [facility] DIFFERENTIAL COMPREHENSIVE METABOLIC 2021-08-31 18:40:00 [facility] PANEL MAGNESIUM LEVEL 2021-08-31 18:40:00 [facility] ESTIMATED GFR 2021-08-31 18:40:00 [facility] MANUAL DIFFERENTIAL 2021-08-31 18:40:00 [facility] CBC WITH PLATELET AND 2021-08-24 18:48:00 [facility] DIFFERENTIAL COMPREHENSIVE METABOLIC 2021-08-24 18:48:00 [facility] PANEL MAGNESIUM LEVEL 2021-08-24 18:48:00 [facility] ESTIMATED GFR 2021-08-24 18:48:00 [facility] MANUAL DIFFERENTIAL 2021-08-24 18:48:00 [facility] CBC WITH PLATELET AND 2021-08-17 20:22:00 [facility] DIFFERENTIAL COMPREHENSIVE METABOLIC 2021-08-17 20:22:00 [facility] PANEL MAGNESIUM LEVEL 2021-08-17 20:22:00 [facility] ESTIMATED GFR 2021-08-17 20:22:00 [facility] MANUAL DIFFERENTIAL 2021-08-17 20:22:00 [facility] IR PORT PLACEMENT 2021-08-17 18:43:03 [facility] [place] POC GLUCOSE 2021-08-17 15:22:00 Gemma [facility] Hospital TYPE AND SCREEN 2021-08-12 16:19:00 [facility] CBC WITH PLATELET AND 2021-08-12 16:19:00 [facility] DIFFERENTIAL COMPREHENSIVE METABOLIC 2021-08-12 16:19:00 [facility] PANEL LDH 2021-08-12 16:19:00 [facility] URIC ACID LEVEL 2021-08-12 16:19:00 [facility] MAGNESIUM LEVEL 2021-08-12 16:19:00 [facility] PARTIAL THROMBOPLASTIN 2021-08-12 16:19:00 [facility] TIME (PTT) PROTHROMBIN TIME WITH INR 2021-08-12 16:19:00 [facility] ESTIMATED GFR 2021-08-12 16:19:00 [facility] MANUAL DIFFERENTIAL 2021-08-12 16:19:00 [facility] HC COMPLETE BLD COUNT 2021-08-05 18:15:00 [facility] W/AUTO DIFF COMPREHENSIVE METABOLIC 2021-08-05 18:15:00 [facility] PANEL ESTIMATED GFR 2021-08-05 18:15:00 [facility] TESTOSTERONE 2021-08-05 18:15:00 [facility] URIC ACID LEVEL 2021-08-05 18:15:00 [facility] LDH 2021-08-05 18:15:00 [facility] PROSTATE SPECIFIC ANTIGEN 2021-08-05 18:15:00 [facility] VITAMIN D 1,25 DIHYDROXY 2021-08-05 18:15:00 [facility] LEVEL, SERUM VITAMIN B12 LEVEL 2021-08-05 18:15:00 [facility] MAGNESIUM LEVEL 2021-08-05 18:15:00 [facility] PHOSPHORUS LEVEL 2021-08-05 18:15:00 [facility] HEMOGLOBIN A1C 2021-08-05 18:15:00 [facility] THYROID STIMULATING 2021-08-05 18:15:00 [facility] HORMONE T3, FREE 2021-08-05 18:15:00 [facility] T4, FREE 2021-08-05 18:15:00 [facility] T3 2021-08-05 18:15:00 [facility] LIPID PANEL 2021-08-05 18:15:00 [facility] T4 2021-08-05 18:15:00 [facility] SMEAR REVIEW 2021-08-05 18:15:00 [facility] PARTIAL THROMBOPLASTIN 2021-07-28 19:21:00 [facility] TIME (PTT) PROTHROMBIN TIME WITH INR 2021-07-28 19:21:00 [facility] HC COMPLETE BLD COUNT 2021-07-28 19:21:00 [facility] W/AUTO DIFF COMPREHENSIVE METABOLIC 2021-07-28 19:21:00 [facility] PANEL ESTIMATED GFR 2021-07-28 19:21:00 [facility] US EXTREMITY RIGHT 2021-07-28 16:15:00 [facility] CBC WITH PLATELET AND 2021-07-23 15:52:00 [facility] DIFFERENTIAL COMPREHENSIVE METABOLIC 2021-07-23 15:52:00 [facility] PANEL MAGNESIUM LEVEL 2021-07-23 15:52:00 [facility] ESTIMATED GFR 2021-07-23 15:52:00 [facility] MANUAL DIFFERENTIAL 2021-07-23 15:52:00 [facility] CBC WITH PLATELET AND 2021-07-20 16:56:00 [facility] DIFFERENTIAL COMPREHENSIVE METABOLIC 2021-07-20 16:56:00 [facility] PANEL MAGNESIUM LEVEL 2021-07-20 16:56:00 [facility] ESTIMATED GFR 2021-07-20 16:56:00 [facility] MANUAL DIFFERENTIAL 2021-07-20 16:56:00 [facility] CBC WITH PLATELET AND 2021-07-14 14:35:00 [facility] DIFFERENTIAL COMPREHENSIVE METABOLIC 2021-07-14 14:35:00 [facility] PANEL MAGNESIUM LEVEL 2021-07-14 14:35:00 [facility] ESTIMATED GFR 2021-07-14 14:35:00 [facility] MANUAL DIFFERENTIAL 2021-07-14 14:35:00 [facility] TYPE AND SCREEN 2021-07-07 15:50:00 [facility] CBC WITH PLATELET AND 2021-07-07 15:50:00 [facility] DIFFERENTIAL COMPREHENSIVE METABOLIC 2021-07-07 15:50:00 [facility] PANEL LDH 2021-07-07 15:50:00 [facility] URIC ACID LEVEL 2021-07-07 15:50:00 [facility] MAGNESIUM LEVEL 2021-07-07 15:50:00 [facility] ESTIMATED GFR 2021-07-07 15:50:00 [facility] MANUAL DIFFERENTIAL 2021-07-07 [facility] 2021-06-30 14:53:00 [facility] CBC WITH PLATELET AND 2021-06-30 14:53:00 [facility] DIFFERENTIAL COMPREHENSIVE METABOLIC 2021-06-30 14:53:00 [facility] PANEL LDH 2021-06-30 14:53:00 [facility] URIC ACID LEVEL 2021-06-30 14:53:00 [facility] MAGNESIUM LEVEL 2021-06-30 14:53:00 [facility] ESTIMATED GFR 2021-06-30 14:53:00 [facility] MANUAL DIFFERENTIAL 2021-06-30 14:53:00 [facility] HC COMPLETE BLD COUNT 2021-06-22 18:28:00 [facility] W/AUTO DIFF COMPREHENSIVE METABOLIC 2021-06-22 18:28:00 [facility] PANEL MAGNESIUM LEVEL 2021-06-22 18:28:00 [facility] ESTIMATED GFR 2021-06-22 18:28:00 [facility] CBC WITH PLATELET AND 2021-06-18 18:40:00 [facility] DIFFERENTIAL COMPREHENSIVE METABOLIC 2021-06-18 18:40:00 [facility] PANEL MAGNESIUM LEVEL 2021-06-18 18:40:00 [facility] ESTIMATED GFR 2021-06-18 18:40:00 [facility] MANUAL DIFFERENTIAL 2021-06-18 18:40:00 [facility] PROSTATE SPECIFIC ANTIGEN 2021-06-17 19:10:00 [facility] TESTOSTERONE 2021-06-17 19:10:00 [facility] CBC WITH PLATELET AND 2021-06-15 17:45:00 [facility] DIFFERENTIAL COMPREHENSIVE METABOLIC 2021-06-15 17:45:00 [facility] PANEL MAGNESIUM LEVEL 2021-06-15 17:45:00 [facility] ESTIMATED GFR 2021-06-15 17:45:00 [facility] MANUAL DIFFERENTIAL 2021-06-15 17:45:00 [facility] CBC WITH PLATELET AND 2021-06-08 15:15:00 [facility] DIFFERENTIAL COMPREHENSIVE METABOLIC 2021-06-08 15:15:00 [facility] PANEL MAGNESIUM LEVEL 2021-06-08 15:15:00 [facility] ESTIMATED GFR 2021-06-08 15:15:00 [facility] MANUAL DIFFERENTIAL 2021-06-08 15:15:00 [facility] CBC WITH PLATELET AND 2021-06-01 15:08:00 [facility] DIFFERENTIAL COMPREHENSIVE METABOLIC 2021-06-01 15:08:00 [facility] PANEL MAGNESIUM LEVEL 2021-06-01 15:08:00 [facility] ESTIMATED GFR 2021-06-01 15:08:00 [facility] MANUAL DIFFERENTIAL 2021-06-01 15:08:00 [facility] PREPARE RBC 2021-05-25 15:59:00 [facility] CBC WITH PLATELET AND 2021-05-25 15:59:00 [facility] DIFFERENTIAL COMPREHENSIVE METABOLIC 2021-05-25 15:59:00 [facility] PANEL LDH 2021-05-25 15:59:00 [facility] URIC ACID LEVEL 2021-05-25 15:59:00 [facility] MAGNESIUM LEVEL 2021-05-25 15:59:00 [facility] ESTIMATED GFR 2021-05-25 15:59:00 [facility] MANUAL DIFFERENTIAL 2021-05-25 15:59:00 [facility] CBC WITH PLATELET AND 2021-05-18 15:43:00 [facility] DIFFERENTIAL COMPREHENSIVE METABOLIC 2021-05-18 15:43:00 [facility] PANEL LDH 2021-05-18 15:43:00 [facility] URIC ACID LEVEL 2021-05-18 15:43:00 [facility] MAGNESIUM LEVEL 2021-05-18 15:43:00 [facility] ESTIMATED GFR 2021-05-18 15:43:00 [facility] MANUAL DIFFERENTIAL 2021-05-18 15:43:00 [facility] HC COMPLETE BLD COUNT 2021-05-14 14:14:00 [facility] W/AUTO DIFF COMPREHENSIVE METABOLIC 2021-05-14 14:14:00 [facility] PANEL LDH 2021-05-14 14:14:00 [facility] URIC ACID LEVEL 2021-05-14 14:14:00 [facility] MAGNESIUM LEVEL 2021-05-14 14:14:00 [facility] ESTIMATED GFR 2021-05-14 14:14:00 [facility] TYPE AND SCREEN 2021-05-14 14:14:00 [facility] SMEAR REVIEW 2021-05-14 14:14:00 [facility] HC COMPLETE BLD COUNT 2021-05-11 14:41:00 [facility] W/AUTO DIFF COMPREHENSIVE METABOLIC 2021-05-11 14:41:00 [facility] PANEL LDH 2021-05-11 14:41:00 [facility] [facility] URIC ACID LEVEL 2021-05-11 14:41:00 [facility] MAGNESIUM LEVEL 2021-05-11 14:41:00 [facility] ESTIMATED GFR 2021-05-11 14:41:00 [facility] SMEAR REVIEW 2021-05-11 14:41:00 [facility] CBC WITH PLATELET AND 2021-05-07 13:52:00 [facility] DIFFERENTIAL COMPREHENSIVE METABOLIC 2021-05-07 13:52:00 [facility] PANEL MAGNESIUM LEVEL 2021-05-07 13:52:00 [facility] ESTIMATED GFR 2021-05-07 13:52:00 [facility] Hospital MANUAL DIFFERENTIAL 2021-05-07 13:52:00 [facility] CBC WITH PLATELET AND 2021-05-04 13:50:00 [facility] DIFFERENTIAL COMPREHENSIVE METABOLIC 2021-05-04 13:50:00 [facility] PANEL LDH 2021-05-04 13:50:00 [facility] URIC ACID LEVEL 2021-05-04 13:50:00 [facility] MAGNESIUM LEVEL 2021-05-04 13:50:00 [facility] Hospital TYPE AND SCREEN 2021-05-04 13:50:00 [facility] ESTIMATED GFR 2021-05-04 13:50:00 [facility] Hospital MANUAL DIFFERENTIAL 2021-05-04 13:50:00 [facility] TYPE AND SCREEN 2021-04-30 14:22:00 [facility] CBC WITH PLATELET AND 2021-04-30 14:22:00 [facility] DIFFERENTIAL COMPREHENSIVE METABOLIC 2021-04-30 14:22:00 [facility] PANEL LDH 2021-04-30 14:22:00 [facility] URIC ACID LEVEL 2021-04-30 14:22:00 [facility], [facility] MAGNESIUM LEVEL 2021-04-30 14:22:00 [facility], [facility] ESTIMATED GFR 2021-04-30 14:22:00 [facility], [facility] MANUAL DIFFERENTIAL 2021-04-30 14:22:00 [facility] Hospital TYPE AND SCREEN 2021-04-27 15:33:00 [facility] CBC WITH PLATELET AND 2021-04-27 15:15:00 [facility] DIFFERENTIAL COMPREHENSIVE METABOLIC 2021-04-27 15:15:00 [facility], [facility] Hospital PANEL LDH 2021-04-27 15:15:00 [facility]EL 2021-04-27 15:15:00 [facility], [facility] MAGNESIUM LEVEL 2021-04-27 15:15:00 [facility] ESTIMATED GFR 2021-04-27 15:15:00 [facility] MANUAL DIFFERENTIAL 2021-04-27 15:15:00 [facility] Hospital TYPE AND SCREEN 2021-04-23 16:30:00 [facility] CBC WITH PLATELET AND 2021-04-23 16:30:00 [facility] DIFFERENTIAL COMPREHENSIVE METABOLIC 2021-04-23 16:30:00 [facility], [facility] Hospital PANEL LDH 2021-04-23 16:30:00 [facility] URIC ACID LEVEL 2021-04-23 16:30:00 [facility] MAGNESIUM LEVEL 2021-04-23 16:30:00 [facility] ESTIMATED GFR 2021-04-23 16:30:00 Gemma [facility] Hospital MANUAL DIFFERENTIAL 2021-04-23 16:30:00 [facility] TRANSFUSE RED BLOOD CELLS 2021-04-20 16:12:00 [facility] PREPARE RBC 2021-04-20 14:40:00 [facility] CBC WITH PLATELET AND 2021-04-20 14:40:00 [facility] DIFFERENTIAL COMPREHENSIVE METABOLIC 2021-04-20 14:40:00 [facility] PANEL LDH 2021-04-20 14:40:00 [facility] URIC ACID LEVEL 2021-04-20 14:40:00 [facility] MAGNESIUM LEVEL 2021-04-20 14:40:00 [facility] ESTIMATED GFR 2021-04-20 14:40:00 [facility] Hospital MANUAL DIFFERENTIAL 2021-04-20 14:40:00 [facility] TYPE AND SCREEN 2021-04-17 15:08:00 [facility] CBC WITH PLATELET AND 2021-04-17 15:08:00 [facility] DIFFERENTIAL COMPREHENSIVE METABOLIC 2021-04-17 15:08:00 [facility] PANEL LDH 2021-04-17 15:08:00 [facility] URIC ACID LEVEL 2021-04-17 15:08:00 [facility] Hospital MAGNESIUM LEVEL 2021-04-17 15:08:00 [facility] Hospital ESTIMATED GFR 2021-04-17 15:08:00 [facility] Hospital MANUAL DIFFERENTIAL 2021-04-17 15:08:00 [facility] CBC WITH PLATELET AND 2021-04-13 14:12:00 [facility] DIFFERENTIAL COMPREHENSIVE METABOLIC 2021-04-13 14:12:00 [facility] PANEL MAGNESIUM LEVEL 2021-04-13 14:12:00 [facility] ESTIMATED GFR 2021-04-13 14:12:00 [facility] Hospital MANUAL DIFFERENTIAL 2021-04-13 14:12:00 [facility] CBC WITH PLATELET AND 2021-04-09 14:16:00 [facility] DIFFERENTIAL COMPREHENSIVE METABOLIC 2021-04-09 14:16:00 [facility] PANEL MAGNESIUM LEVEL 2021-04-09 14:16:00 [facility] ESTIMATED GFR 2021-04-09 14:16:00 [facility] Hospital MANUAL DIFFERENTIAL 2021-04-09 14:16:00 [facility] TRANSFUSE RED BLOOD CELLS 2021-04-06 17:35:00 [facility] PREPARE RBC 2021-04-06 15:38:00 [facility] CBC WITH PLATELET AND 2021-04-06 14:52:00 [facility] DIFFERENTIAL COMPREHENSIVE METABOLIC 2021-04-06 14:52:00 [facility] PANEL MAGNESIUM LEVEL 2021-04-06 14:52:00 [facility] ESTIMATED GFR 2021-04-06 14:52:00 [facility] MANUAL DIFFERENTIAL 2021-04-06 14:52:00 [facility] CBC WITH PLATELET AND 2021-04-03 14:55:00 [facility]HENSIVE METABOLIC 2021-04-03 14:55:00 [facility] PANEL LDH 2021-04-03 14:55:00 [facility] URIC ACID LEVEL 2021-04-03 14:55:00 [facility] MAGNESIUM LEVEL 2021-04-03 14:55:00 [facility] ESTIMATED GFR 2021-04-03 14:55:00 [facility] MANUAL DIFFERENTIAL 2021-04-03 14:55:00 [facility] TRANSFUSE RED BLOOD CELLS 2021-03-31 17:45:00 [facility] PROSTATE SPECIFIC ANTIGEN 2021-03-31 16:07:00 Cyndy Aquino [facility] Tanzanian TESTOSTERONE 2021-03-31 16:07:00 Cyndy Aquino [facility] Tanzanian PREPARE RBC 2021-03-31 16:07:00 [facility] CBC WITH PLATELET AND 2021-03-31 16:07[facility]00 [facility]ABOLIC 2021-03-31 16:07:00 [facility] PANEL LDH 2021-03-31 16:07:00 [facility] URIC ACID LEVEL 2021-03-31 16:07:00 [facility] MAGNESIUM LEVEL 2021-03-31 16:07:00 [facility] ESTIMATED GFR 2021-03-31 16:07:00 [facility] MANUAL DIFFERENTIAL 2021-03-31 16:07:00 [facility] PREPARE PLATELET PHERESIS 2021-03-31 16:07:00 [facility] TYPE AND SCREEN 2021-03-27 16:09:00 [facility] CBC WITH PLATELET AND 2021-03-27 16:09:00 [facility] DIFFERENTIAL COMPREHENSIVE METABOLIC 2021-03-27 16:09:00 [facility] PANEL LDH 2021-03-27 16:09:00 [facility] URIC ACID LEVEL 2021-03-27 16:09:00 [facility] MAGNESIUM LEVEL 2021-03-27 16:09:00 [facility] ESTIMATED GFR 2021-03-27 16:09:00 [facility] MANUAL DIFFERENTIAL 2021-03-27 16:09:00 [facility] SURGICAL PATHOLOGY 2021-03-20 17:49:00 [facility] REQUEST Lucina FLOW CYTOMETRY EVALUATION 2021-03-20 17:14:00 [facility] Lucina [facility] CHROMOSOME ANALYSIS 2021-03-20 17:14:00 [facility] PANEL Lucina [facility] AML FISH PANEL 2021-03-20 17:14:00 [facility] Lucina MISCELLANEOUS REFERRAL 2021-03-20 17:14:00 [facility] TEST Lucina BONE MARROW TRAY 2021-03-20 17:14:00 [facility] Lucina TYPE AND SCREEN 2021-03-20 12:[facility] WITH [facility] AND 2021-03-20 12:33:00 [place] Rice [facility] DIFFERENTIAL COMPREHENSIVE METABOLIC 2021-03-20 12:33:00 [facility] PANEL LDH 2021-03-20 12:33:00 [facility] URIC ACID LEVEL 2021-03-20 12:33:00 [facility] MAGNESIUM LEVEL 2021-03-20 12:33:00 [facility] ESTIMATED GFR 2021-03-20 12:33:00 [facility] Hospital MANUAL DIFFERENTIAL 2021-03-20 12:33:00 [facility] CBC WITH PLATELET AND 2021-03-17 15:02:00 [facility] DIFFERENTIAL COMPREHENSIVE METABOLIC 2021-03-17 15:02:00 [facility] PANEL LDH 2021-03-17 15:02:00 [facility] URIC ACID LEVEL 2021-03-17 15:02:00 [facility] MAGNESIUM LEVEL 2021-03-17 15:02:00 [facility] ESTIMATED GFR 2021-03-17 15:02:00 [facility] MANUAL DIFFERENTIAL 2021-03-17 15:02:00 [facility] TRANSFUSE RED BLOOD CELLS 2021-03-13 17:25:00 [facility] CBC WITH PLATELET AND 2021-03-13 15:39:00 [facility] DIFFERENTIAL COMPREHENSIVE METABOLIC 2021-03-13 15:39:00 [facility] PANEL LDH 2021-03-13 15:39:00 [facility] URIC ACID LEVEL 2021-03-13 15:39:00 [facility] MAGNESIUM LEVEL 2021-03-13 15:39:00 [facility] PREPARE RBC 2021-03-13 15:39:00 [facility] ESTIMATED GFR 2021-03-13 15:39:00 [facility] MANUAL DIFFERENTIAL 2021-03-13 15:39:00 [facility] Plan of Care Planned Activity Planned Date Details Comments Source Future Scheduled Test 2022-07-13 65+ PNEUMOCOCCAL [facility] 06:34:34 VACCINE (1 - PCV) [code = 65+ PNEUMOCOCCAL VACCINE (1 - PCV)] Future Scheduled Test 2022-07-13 SHINGLES VACCINES (1 [facility] 06:34:34 of 2) [code = SHINGLES VACCINES (1 of 2)] Future Scheduled Test 2022-03-10 HEPATITIS B VACCINES [facility] 14:38:27 (1 of 3 - 3-dose series) [code = HEPATITIS B VACCINES (1 of 3 - 3-dose series)] Future Scheduled Test 2022-03-10 65+ PNEUMOCOCCAL [facility] 14:38:27 VACCINE (1 - PCV) [code = 65+ PNEUMOCOCCAL VACCINE (1 - PCV)] Future Scheduled Test 2022-03-10 SHINGLES VACCINES (1 [facility] 14:38:27 of 2) [code = SHINGLES VACCINES (1 of 2)] Future Scheduled Test 2022-03-10 COVID-19 VACCINE (4 [facility] 14:38:27 Booster for Pfizer series) [code = COVID-19 VACCINE (4 - Booster for Pfizer series)] Future Scheduled Test 2022-03-10 INFLUENZA VACCINE [facility] 14:38:27 [code = INFLUENZA VACCINE] Future Scheduled Test 2022-03-10 HEPATITIS B VACCINES [facility] 14:38:27 (1 of 3 - 3-dose series) [code = HEPATITIS B VACCINES (1 of 3 - 3-dose series)] Future Scheduled Test 2022-03-10 65+ PNEUMOCOCCAL [facility] 14:38:27 VACCINE (1 - PCV) [code = 65+ PNEUMOCOCCAL VACCINE (1 - PCV)] Future Scheduled Test 2022-03-10 SHINGLES VACCINES (1 [facility] 14:38:27 of 2) [code = SHINGLES VACCINES (1 of 2)] Future Scheduled Test 2022-03-10 COVID-19 VACCINE (4 [facility] 14:38:27 Booster for Pfizer series) [code = COVID-19 VACCINE (4 - Booster for Pfizer series)] Future Scheduled Test 2022-03-10 INFLUENZA VACCINE [facility] 14:38:27 [code = INFLUENZA VACCINE] Instructions [facility] Practice Encounters Start End Encounter Admission Attending Care Care Encounter Source Date/Time Date/Time Type Type Clinicians Facility Department ID 2022-09-27 2022-09-27 Outpatient NORMA ECHAVARRIA [id number] Norm[place] 13:45:00 13:45:00 SRIRAM Seybol d 2022-07-13 2022-07-13 Outpatient NORMA ZHENG [id number] [place] 00:00:00 00:00:00 LEILANI Seybol d 2022-07-13 2022-07-13 Telephone Gemma, 1.2.840.1 [id number] Methodi 00:00:00 00:00:00 Tyrone 99161.1.1 624 s t 3.430.2.7 Hospit a .3.173709 l .8 2022-07-13 2022-07-13 Telephone Gemma, 1.2.840.1 [id number] [id number] [facility] 00:00:00 00:00:00 [place]one 10625.1.1 500 s t 3.430.2.7 Hospit a .3.274583 l .8 2022-06-15 2022-07-09 Procedure 1.2.840.1 [id number] 2099 [id number] Methodi 11:30:00 10:39:[address] 3.430.2.7 Hospit a .3.827997 l .8 2022-07-09 2022-07-09 Orders Julissa, 1.2.840.1 [id number] 2099 [id number] Methodi 00:00:00 00:00:00 Only Agnes 25288.1.[address] 3.430.2.7 Hospit a .3.650520 l .8 2022-07-09 2022-07-09 Telephone Gemma, 1.2.840.1 [id number] 853 [id number] Methodi 00:00:00 00:00:00 [place]one 32600.1.1 609 s t 3.430.2.7 Hospit a .3.870973 l .8 2022-06-29 2022-06-29 Outpatient LAB90 NORMA HERANNDEZ [id number] Norm[place] 11:15:00 11:15:00 Seybol d 2022-06-29 2022-06-29 Outpatient NORMA ECHAVARRIA [id number] Norma 10:15:00 10:15:00 SRIRAM Seybol d 2022-06-29 2022-06-29 Outpatient BRITTANIE NORMA HERNANDEZ [id number] Norma 00:00:00 00:00:00 TRACY Seybol d 2022-06-28 2022-06-28 Lab Gemma, 1.2.840.1 [id number] Methodi 09:00:00 09:05:00 [place] 80375.1.1 912 s t 3.430.2.7 Hospit a .3.801544 l .8 2022-06-28 2022-06-28 Outpatient GEMMA, [facility] [id number] [place] 00:00:00 00:00:00 TYRONE [address] 2022-06-28 2022-06-28 Orders Julissa, 1.2.840.1 [id number] 2099 [id number] Methodi 00:00:00 00:00:00 Only Agnes 77771.1.[address] 3.430.2.7 Hospit a .3.778937 l .8 2022-06-28 2022-06-28 Travel 1.2.840.1 1.2.142.772 7282 [id number] Methodi 00:00:00 00:00:[address] 3.430.2.7 0.2.7.3.698 Ho spita .3.755174 084.8 l .8 2022-06-25 2022-06-25 Outpatient NORMA ECHAVARRIA [id number] [place] 00:00:00 00:00:00 SRIRAM Seybol d 2022-06-25 2022-06-25 Orders Julissa, 1.2.840.1 [id number] 2099 [id number] Methodi 00:00:00 00:00:00 Only Agnes 02965.1.[address] 3.430.2.7 Hospit a .3.372178 l .8 2022-06-25 2022-06-25 Orders Julissa, 1.2.840.1 [id number] 2099 [id number] Methodi 00:00:00 00:00:00 Only Agnes 72248.1.[address] 3.430.2.7 Hospit a .3.039076 l .8 2022-06-25 2022-06-25 Orders Julissa, 1.2.840.1 [id number] 2099 [id number] Methodi 00:00:00 00:00:00 Only Agnes 77179.1.[address] 3.430.2.7 Hospit a .3.318075 l .8 2022-06-23 2022-06-23 Office Carlos, 1.2.840.1 [id number] Methodi 16:00:00 16:00:00 Visit Kathleen 40574.1.[address] 3.430.2.7 Hospit a .3.714504 l .8 2022-06-23 2022-06-23 Office Gemma, 1.2.840.1 [id number] Methodi 13:40:00 14:00:00 Visit Tyrone 42083.1.1 596 s t 3.430.2.7 Hospit a .3.173303 l .8 2022-06-23 2022-06-23 Lab Gemma, 1.2.840.1 [id number] 15 Methodi 12:40:00 12:45:00 [place]one 74417.1.1 958 s t 3.430.2.7 Hospit a .3.817601 l .8 2022-06-23 2022-06-23 Lab Carlos, 1.2.840.1 [id number] Methodi 11:25:00 11:30:[address] 3.430.2.7 Hospit a .3.142952 l .8 2022-06-23 2022-06-23 [facility] [id number] [place] 00:00:00 00:00:00 TYRONE [address] 2022-06-23 2022-06-23 [facility] [id number] [id number] [place] 00:00:00 00:00:00 KATHLEEN 452 Method i 2022-06-23 2022-06-23 Outpatient GEMMA, [facility] [id number] [place] 00:00:00 00:00:00 TYRONE 958 [facility] 2022-06-23 2022-06-23 Outpatient CARLOS, [facility] [id number] [place] 00:00:00 00:00:00 KATHLEEN [address] 2022-06-23 2022-06-23 Travel 1.2.840.1 1.2.815.542 0334 [id number] Methodi 00:00:00 00:00:[address] 3.430.2.7 0.2.7.3.698 Ho spita .3.022090 084.8 l .8 2022-06-15 2022-06-15 Lab Gemma, 1.2.840.1 [id number] 33103 Methodi 12:50:00 12:55:00 Tyrone 56198.1.1 607 s t 3.430.2.7 Hospit a .3.827790 l .8 2022-06-15 2022-06-15 Lab Gemma, 1.2.840.1 [id number] 71654 Methodi 11:30:00 12:30:00 Tyrone 35468.1.1 506 s t 3.430.2.7 Hospit a .3.614568 l .8 2022-06-15 2022-06-15 Outpatient [facility] [id number] [place] 00:00:00 00:00:00 014 Method i 2022-06-15 2022-06-15 Outpatient GEMMA, [facility] [id number] [place] 00:00:00 00:00:00 TYRONE 506 Met [facility] 2022-06-15 2022-06-15 Outpatient GEMMA, [facility] [id number] [place] 00:00:00 00:00:00 TYRONE 607 Met [facility] 2022-06-15 2022-06-15 Orders Stroughter, 1.2.840.1 [id number] Methodi 00:00:00 00:00:00 Only Donyamilkaha 11734.1.[address] 3.430.2.7 Hospit a .3.125961 l .8 2022-06-15 2022-06-15 Orders Julissa, 1.2.840.1 [id number] 2099 [id number] Methodi 00:00:00 00:00:00 Only Agnes 39798.1.[address] 3.430.2.7 Hospit a .3.695539 l .8 2022-06-15 2022-06-15 Telephone Efstathiou, 1.2.840.1 [id number] Methodi 00:00:00 00:00:[address] 3.430.2.7 Hospit a .3.234519 l .8 2022-06-14 2022-06-14 Infusion Keiry Cabral 1.2.840.1 [id number] Methodi 13:45:00 16:15:00 Gemma, Tyrone [address]207.1.[address] 3.430.2.7 Hospit a .3.599051 l .8 2022-06-14 2022-06-14 Office Gemma, 1.2.840.1 [id number] 56902 Methodi 15:00:00 15:20:00 Visit Tyrone 78882.1.1 393 s t 3.430.2.7 Hospit a .3.285164 l .8 2022-06-14 2022-06-14 Outpatient GEMMA, [facility] [id number] [place] 00:00:00 00:00:00 TYRONE 714 Met [facility] 2022-06-14 2022-06-14 Outpatient GEMMA, [facility] [id number] [place] 00:00:00 00:00:00 TYRONE 393 Met [facility] 2022-06-14 2022-06-14 Orders Obasohan, 1.2.840.1 [id number] 2100 [id number] Methodi 00:00:00 00:00:00 Only Ekeoma 29763.1.[address] 3.430.2.7 Hospit a .3.683135 l .8 2022-06-14 2022-06-14 Travel 1.2.840.1 1.2.563.460 9895 036698 Methodi 00:00:00 00:00:[address] 3.430.2.7 0.2.7.3.698 Ho spita .3.293273 084.8 l .8 2022-06-11 2022-06-11 Telephone Person, 1.2.840.1 [id number] 2099 [id number] Methodi 00:00:00 00:00:00 Brodie Feliciano 90401.1.1 833 s t 3.430.2.7 Hospit a .3.802616 l .8 2022-06-10 2022-06-10 Orders Nichole, 1.2.840.1 [id number] 2099 [id number] Methodi 00:00:00 00:00:00 Only Mimi 12840.1.[address] 3.430.2.7 Hospit a .3.312973 l .8 2022-06-10 2022-06-10 Orders Person, 1.2.840.1 [id number] Methodi 00:00:00 00:00:00 Only Brodie Srivastavao 26369.1.1 412 s t 3.430.2.7 Hospit a .3.633168 l .8 2022-06-07 2022-06-07 Telephone Efstathiou, 1.2.840.1 [id number] Methodi 00:00:00 00:00:[address] 3.430.2.7 Hospit a .3.851906 l .8 2022-06-04 2022-06-04 Orders Julissa, 1.2.840.1 [id number] 2099 [id number] Methodi 00:00:00 00:00:00 Only Agnes 84192.1.[address] 3.430.2.7 Hospit a .3.367262 l .8 2022-06-01 2022-06-01 Orders White, 1.2.840.1 [id number] 8315 Methodi 00:00:00 00:00:00 Only Zayra 98209.1.[address] 3.430.2.7 Hospit a .3.726379 l .8 2022-05-28 2022-05-28 Orders Julissa, 1.2.840.1 [id number] 2100 [id number] Methodi 00:00:00 00:00:00 Only Agnes 21825.1.[address] 3.430.2.7 Hospit a .3.400187 l .8 2022-05-26 2022-05-26 Orders Gemma, 1.2.840.1 [id number] 38645 04226 Methodi 00:00:00 00:00:00 Only Tyrone 18620.1.1 991 s t 3.430.2.7 Hospit a .3.497990 l .8 2022-05-25 2022-05-25 Orders Julissa, 1.2.840.1 [id number] 2100 738189 Methodi 00:00:00 00:00:00 Only Agnes 91523.1.[address] 3.430.2.7 Hospit a .3.435186 l .8 2022-05-25 2022-05-25 Orders White, 1.2.840.1 [id number] 5065 Methodi 00:00:00 00:00:00 Only Zayra 65485.1.[address] 3.430.2.7 Hospit a .3.212928 l .8 2022-05-24 2022-05-24 Office Gemma, 1.2.840.1 [id number] 21001 32013 Methodi 11:20:00 11:40:00 Visit Tyrone 30469.1.1 791 s t 3.430.2.7 Hospit a .3.013716 l .8 2022-05-24 2022-05-24 Lab Gemma, 1.2.840.1 [id number] 21001 46577 Methodi 10:40:00 10:45:00 Tyrone 11249.1.1 095 s t 3.430.2.7 Hospit a .3.731081 l .8 2022-05-24 2022-05-24 Outpatient [facility], [facility] [id number] [place] 00:00:00 00:00:[address] TYRONE [address] 2022-05-24 2022-05-24 Outpatient [facility], [facility] [id number] [place] 00:00:00 00:00:00 TYRONE [address] 2022-05-24 2022-05-24 Orders Nichole, 1.2.840.1 [id number] 2100 [id number] Methodi 00:00:00 00:00:00 Only Mimi 29757.1.[address] 3.430.2.7 Hospit a .3.787599 l .8 2022-05-24 2022-05-24 Orders White, 1.2.840.1 [id number] 8432 Methodi 00:00:00 00:00:00 Only Zayra [address]91.1.[address] 3.430.2.7 Hospit a .3.498374 l .8 2022-05-24 2022-05-24 Travel 1.2.840.1 1.2.374.901 9311 417708 Methodi 00:00:00 00:00:[address] 3.430.2.7 0.2.7.3.698 Ho spita .3.061730 084.8 l .8 2022-05-21 2022-05-21 Orders Julissa, 1.2.840.1 [id number] 2100 [id number] Methodi 00:00:00 00:00:00 Only Agnes 32129.1.[address] 3.430.2.7 Hospit a .3.577708 l .8 2022-05-17 2022-05-17 Lab Gemma, 1.2.840.1 [id number] 27418 Methodi 09:20:00 09:25:00 Tyrone 94080.1.1 290 s t 3.430.2.7 Hospit a .3.308796 l .8 2022-05-17 2022-05-17 Outpatient GEMMA, [facility] [id number] [place] 00:00:00 00:00:00 TYRONE [address] 2022-05-17 2022-05-17 Orders Gemma, 1.2.840.1 [id number] Methodi 00:00:00 00:00:00 Only Tyrone 71480.1.1 205 s t 3.430.2.7 Hospit a .3.903909 l .8 2022-05-17 2022-05-17 Travel 1.2.840.1 1.2.568.918 1483 542344 Methodi 00:00:00 00:00:[address] 3.430.2.7 0.2.7.3.698 Ho spita .3.333011 084.8 l .8 2022-05-10 2022-05-10 Office Gemma, 1.2.840.1 [id number] 22148 Methodi 10:40:00 11:42:41 Visit Tyrone 13210.1.1 216 s t 3.430.2.7 Hospit a .3.777085 l .8 2022-05-10 2022-05-10 Lab Gemma, 1.2.840.1 [id number] 27979 Methodi 09:40:00 09:45:00 Tyrone 20107.1.1 961 s t 3.430.2.7 Hospit a .3.232672 l .8 2022-05-10 2022-05-10 Outpatient GEMMA, [facility] [id number] [place] 00:00:00 00:00:00 TYRONE [address] 2022-05-10 2022-05-10 Outpatient GEMMA, [facility] [id number] 1482 [place] 00:00:00 00:00:00 TYRONE [address] 2022-05-10 2022-05-10 Orders Julissa, 1.2.840.1 2099701 Methodi 00:00:00 00:00:00 Only Agnes [address]80.1.[address] 3.430.2.7 Hospit a .3.999857 l .8 2022-05-10 2022-05-10 Orders Julissa, 1.2.840.1 2099701 Methodi 00:00:00 00:00:00 Only Agnes [address]68.1.[address] 3.430.2.7 Hospit a .3.907944 l .8 2022-05-10 2022-05-10 Travel 1.2.840.1 1.2.111.867 9014 792373 Methodi 00:00:00 00:00:[address] 3.430.2.7 0.2.7.3.698 Ho spita .3.039766 084.8 l .8 2022-05-07 2022-05-07 Infusion Keiry Cabral 1.2.840.1 [id number] Methodi 11:30:00 14:00:00 Tyrone Rice [address].1.[address] 3.430.2.7 Hospit a .3.401842 l .8 2022-05-07 2022-05-07 Outpatient GEMMA [facility] [id number] [place] 00:00:00 00:00:00 TYRONE [address] 2022-05-07 2022-05-07 Travel 1.2.840.1 1.2.629.946 9605 631856 Methodi 00:00:00 00:00:[address] 3.430.2.7 0.2.7.3.698 Ho spita .3.822389 084.8 l .8 2022-05-06 2022-05-06 Infusion Keiry Cabral 1.2.840.1 [id number] Methodi 11:30:00 14:00:00 Tyrone Rice [address]124.1.[address] 3.430.2.7 Hospit a .3.815273 l .8 2022-05-06 2022-05-06 Outpatient GEMMA [facility] [id number] 7870 [place] 00:00:00 00:00:00 TYRONE [facility] 2022-05-06 2022-05-06 Travel 1.2.840.1 1.2.477.051 1777 749095 Methodi 00:00:00 00:00:[address] 3.430.2.7 0.2.7.3.698 Ho spita .3.117188 084.8 l .8 2022-05-05 2022-05-05 Infusion Keiry Cabral 1.2.840.1 366536857 [id number] Methodi 13:00:00 15:30:00 Tyrone Rice 98285.1.[address] 3.430.2.7 Hospit a .3.990097 l .8 2022-05-05 2022-05-05 [facility] [id number] 3494 [place] 00:00:00 00:00:00 TYRONE 9[address] [facility] 2022-05-05 2022-05-05 Travel 1.2.840.1 1.2.747.652 3677 886514 Methodi 00:00:00 00:00:[address] 3.430.2.7 0.2.7.3.698 Ho spita .3.216770 084.8 l .8 2022-05-04 2022-05-04 Infusion Keiry Cabral 1.2.840.1 419902546 [id number] Methodi 11:15:00 13:45:00 Tyrone Rice 08211.1.[address] 3.430.2.7 Hospit a .3.376550 l .8 2022-05-04 2022-05-04 Outpatient GEMMA, [facility] [id number] 5791 [place] 00:00:00 00:00:00 TYRONE [address] 2022-05-04 2022-05-04 Travel 1.2.840.1 1.2.122.173 0263 128074 Methodi 00:00:00 00:00:[address] 3.430.2.7 0.2.7.3.698 Ho spita .3.248579 084.8 l .8 2022-05-03 2022-05-03 Infusion Keiry Cabral 1.2.840.1 617662472 [id number] Methodi 09:15:00 11:45:00 Tyrone Rice [address]453.1.[address] 3.430.2.7 Hospit a .3.916081 l .8 2022-05-03 2022-05-03 Office Gemma, 1.2.840.1 016224868 35577 71038 Methodi 09:40:00 10:00:00 Visit Tyrone 05184.1.1 626 s t 3.430.2.7 Hospit a .3.007333 l .8 2022-05-03 2022-05-03 Outpatient GEMMA, [facility] [id number] 2368 [place] 00:00:00 00:00:00 TYRONE [facility] 2022-05-03 2022-05-03 Outpatient [facility] [id number] 6187 [place] 00:00:00 00:00:00 TYRONE [address] 2022-05-03 2022-05-03 Orders Julissa, 1.2.840.1 [id number] 2100 816063 Methodi 00:00:00 00:00:00 Only Agnes 35633.1.[address] 3.430.2.7 Hospit a .3.205377 l .8 2022-05-03 2022-05-03 Travel 1.2.840.1 1.2.274.912 5267 254967 Methodi 00:00:00 00:00:[address] 3.430.2.7 0.2.7.3.698 Ho spita .3.679250 084.8 l .8 2022-04-26 2022-04-26 Infusion Keiry Cabral 1.2.840.1 943298733 3482115795 Methodi 11:15:00 13:45:00 Tyrone Rice 53814.1.[address] 3.430.2.7 Hospit a .3.141219 l .8 2022-04-26 2022-04-26 Office Gemma, 1.2.840.1 896226403 97997 21558 Methodi 11:40:00 12:00:00 Visit Tyrone 34809.1.1 944 s t 3.430.2.7 Hospit a .3.337978 l .8 2022-04-26 2022-04-26 [facility] [id number] 2621 [place] 00:00:00 00:00:00 TYRONE [address] 2022-04-26 2022-04-26 [facility] [id number] 0780 [place] 00:00:00 00:00:00 TYRONE [address] 2022-04-26 2022-04-26 Orders Nichole, 1.2.840.1 [id number] 2099 014745 Methodi 00:00:00 00:00:00 Only Mimi 12040.1.[address] 3.430.2.7 Hospit a .3.705248 l .8 2022-04-26 2022-04-26 Travel 1.2.840.1 1.2.195.838 2601 790116 Methodi 00:00:00 00:00:[address] 3.430.2.7 0.2.7.3.698 Ho spita .3.008147 084.8 l .8 2022-04-23 2022-04-23 Orders Nichole, 1.2.840.1 301198673 2100 499319 Methodi 00:00:00 00:00:00 Only Mimi 39711.1.[address] 3.430.2.7 Hospit a .3.120713 l .8 2022-04-22 2022-04-22 Orders Nichole, 1.2.840.1 803549326 2100 391357 Methodi 00:00:00 00:00:00 Only Mimi 51264.1.[address] 3.430.2.7 Hospit a .3.800936 l .8 2022-04-19 2022-04-19 Lab Gemma, 1.2.840.1 594940574 21001 94838 Methodi 09:20:00 09:25:00 Tyrone 51990.1.1 912 s t 3.430.2.7 Hospit a .3.538587 l .8 2022-04-19 2022-04-19 Outpatient GEMMA, [facility] [id number] 7358 [place] 00:00:00 00:00:00 TYRONE [address] 2022-04-19 2022-04-19 Orders Gemma, 1.2.840.1 222043080 48262 Methodi 00:00:00 00:00:00 Only Tyrone 04281.1.1 407 s t 3.430.2.7 Hospit a .3.966836 l .8 2022-04-19 2022-04-19 Travel 1.2.840.1 1.2.755.034 1254 892169 Methodi 00:00:00 00:00:[address] 3.430.2.7 0.2.7.3.698 Ho spita .3.747779 084.8 l .8 2022-04-14 2022-04-14 Telephone Stalin, 1.2.840.1 912352290 2100 386650 Methodi 00:00:00 00:00:00 Blu Viverso 63790.1.[address] 3.430.2.7 Hospit a .3.363975 l .8 2022-04-14 2022-04-14 Telephone Efstathiou, 1.2.840.1 466119488 5444402876 Methodi 00:00:00 00:00:[address] 3.430.2.7 Hospit a .3.289123 l .8 2022-04-12 2022-04-12 Lab Gemma, 1.2.840.1 945364038 22793 96016 Methodi 09:25:00 09:30:00 Tyrone 34876.1.1 325 s t 3.430.2.7 Hospit a .3.907842 l .8 2022-04-12 2022-04-12 Outpatient GEMMA, [facility] [id number] 4316 [place] 00:00:00 00:00:00 TYRONE [address] 2022-04-12 2022-04-12 [facility], 1.2.840.1 [id number] 21 [id number] Methodi 00:00:00 00:00:00 Only Kathleen 10841.1.[address] 3.430.2.7 Hospit a .3.514619 l .8 2022-04-12 2022-04-12 Travel 1.2.840.1 1.2.759.495 3796 929445 Methodi 00:00:00 00:00:[address] 3.430.2.7 0.2.7.3.698 spita .3.875629 084.8 l .8 2022-04-05 2022-04-05 Office Gemma, 1.2.840.1 757482865 21001 74056 Methodi 10:40:00 11:00:00 Visit Tyrone 32621.1.1 108 s t 3.430.2.7 Hospit a .3.506530 l .8 2022-04-05 2022-04-05 Lab Gemma, 1.2.840.1 369399293 21001 29089 Methodi 09:40:00 09:45:00 Tyrone 41782.1.1 796 s t 3.430.2.7 Hospit a .3.409309 l .8 2022-04-05 2022-04-05 [facility], 1.2.840.1 [id number] 21 21411786 Methodi 09:05:00 09:10:[address] 3.430.2.7 Hospit a .3.927565 l .8 2022-04-05 2022-04-05 Outpatient [facility], [facility] [id number] 0838 [place] 00:00:00 00:00:00 TYRONE [address] 2022-04-05 2022-04-05 Outpatient [facility] 943 [id number] [place] 00:00:00 00:00:00 KATHLEEN [address] 2022-04-05 2022-04-05 Outpatient [facility], [facility] [id number] 7740 [place] 00:00:00 00:00:00 TYRONE 108 [facility] 2022-04-05 2022-04-05 Travel 1.2.840.1 1.2.470.120 5421 285754 Methodi 00:00:00 00:00:[address] 3.430.2.7 0.2.7.3.698 Ho spita .3.458840 084.8 l .8 2022-04-02 2022-04-02 Orders Radha, 1.2.840.1 [id number] 21 [id number] Methodi 00:00:00 00:00:00 Only Donandrey 82968.1.[address] 3.430.2.7 Hospit a .3.502933 l .8 2022-04-02 2022-04-02 Telephone Mary, 1.2.840.1 [id number] 196 6947732 Methodi 00:00:00 00:00:[address] 39911.[address] 3.430.2.7 Hospit a .3.550496 l .8 2022-04-01 2022-04-01 [facility].840[facility]1 [id number] 2 [id number] Methodi 09:25:15 23:59:00 Encounter Kathleen 52985.1.[address] 3.430.2.7 Hospit a .3.704629 l .8 2022-04-01 2022-04-01 Outpatient CARLOS, [facility] 128 [id number] [place] 00:00:00 00:00:00 KATHLEEN [address] 2022-04-01 2022-04-01 Travel 1.2.840.1 1.2.463.571 2257 808858 Methodi 00:00:00 00:00:[address] 3.430.2.7 0.2.7.3.698 Ho spita .3.495406 084.8 l .8 2022-03-29 2022-03-29 Lab Gemma, 1.2.840.1 066482559 10149 42167 Methodi 09:50:00 09:55:00 Tyrone 35173.1.1 656 s t 3.430.2.7 Hospit a .3.986217 l .8 2022-03-29 2022-03-29 [facility] [id number] 2670 [place] 00:00:00 00:00:00 TYRONE [address] 2022-03-29 2022-03-29 Travel 1.2.840.1 1.2.279.150 9480 986159 Methodi 00:00:00 00:00:[address] 3.430.2.7 0.2.7.3.698 Ho spita .3.141759 084.8 l .8 2022-03-26 2022-03-26 Infusion Keiry Cabral 1.2.840.1 840305285 5757490324 Methodi 11:15:00 13:45:[address] 3.430.2.7 Hospit a .3.342451 l .8 2022-03-26 2022-03-26 [facility] [id number] 4541 [place] 00:00:00 00:00:00 TYRONE [address] 2022-03-26 2022-03-26 Travel 1.2.840.1 1.2.168.492 5243 143082 Methodi 00:00:00 00:00:[address] 3.430.2.7 0.2.7.3.698 Ho spita .3.897468 084.8 l .8 2022-03-25 2022-03-25 Infusion Keiry Cabral 1.2.840.1 185311247 2278264456 Methodi 10:45:00 13:15:00 Tyrone Rice 99832.1.[address] 3.430.2.7 Hospit a .3.184985 l .8 2022-03-25 2022-03-25 Outpatient [facility] [id number] 5300 [place] 00:00:00 00:00:00 TYRONE [address] 2022-03-25 2022-03-25 Orders White, 1.2.840.1 162988866 433625 5163 Methodi 00:00:00 00:00:00 Only Zayra 75377.1.[address] 3.430.2.7 Hospit a .3.009136 l .8 2022-03-25 2022-03-25 Travel 1.2.840.1 1.2.238.558 2372 862524 Methodi 00:00:00 00:00:[address] 3.430.2.7 0.2.7.3.698 Ho spita .3.643837 084.8 l .8 2022-03-24 2022-03-24 Infusion Keiry Cabral 1.2.840.1 824893571 [id number] Methodi 12:00:00 14:30:00 Tyrone Rice 88033.1.[address] 3.430.2.7 Hospit a .3.486327 l .8 2022-03-24 2022-03-24 [facility] [id number] 5860 [place] 00:00:00 00:00:00 TYRONE 115 Met [facility] 2022-03-24 2022-03-24 Travel 1.2.840.1 1.2.848.620 0870 119217 Methodi 00:00:00 00:00:[address] 3.430.2.7 0.2.7.3.698 Ho spita .3.101322 084.8 l .8 2022-03-23 2022-03-23 Infusion Keiry Cabral 1.2.840.1 011736116 2060858842 Methodi 11:30:00 14:00:00 Tyrone Rice [address]5592.1.[address] 3.430.2.7 Hospit a .3.330808 l .8 2022-03-23 2022-03-23 [facility] 934173 1296 [place] 00:00:00 00:00:00 TYRONE 060 Met [facility] 2022-03-23 2022-03-23 Travel 1.2.840.1 1.2.226.310 6614 184411 Methodi 00:00:00 00:00:[address] 3.430.2.7 0.2.7.3.698 Ho spita .3.344849 084.8 l .8 2022-03-23 2022-03-23 Orders Julissa, 1.2.840.1 105055487 2099 193873 Methodi 00:00:00 00:00:00 Only Agnes 05997.1.[address] 3.430.2.7 Hospit a .3.124670 l .8 2022-03-23 2022-03-23 Orders Julissa, 1.2.840.1 212753064 2099 359323 Methodi 00:00:00 00:00:00 Only Agnes 06722.1.[address] 3.430.2.7 Hospit a .3.861715 l .8 2022-03-22 2022-03-22 Infusion Keiry Cabral 1.2.840.1 760555500 2967396079 Methodi 09:30:00 12:00:00 Tyrone Rice 55616.1.[address] 3.430.2.7 Hospit a .3.759875 l .8 2022-03-22 2022-03-22 Office Gemma, 1.2.840.1 035263353 46893 60850 Methodi 11:00:00 11:20:00 Visit Tyrone 17775.1.1 499 s t 3.430.2.7 Hospit a .3.234539 l .8 2022-03-22 2022-03-22 [facility] [id number] 5355 [place] 00:00:00 00:00:00 TYRONE [address] 2022-03-22 2022-03-22 [facility] [id number] 8472 [place] 00:00:00 00:00:00 TYRONE [address] 2022-03-22 2022-03-22 Travel 1.2.840.1 1.2.402.048 4978 525810 Methodi 00:00:00 00:00:[address] 3.430.2.7 0.2.7.3.698 Ho spita .3.009195 084.8 l .8 2022-03-17 2022-03-17 Orders Gemma, 1.2.840.1 474595299 63076 46868 Methodi 00:00:00 00:00:00 Only Tyrone 40176.1.1 250 s t 3.430.2.7 Hospit a .3.006667 l .8 2022-03-09 2022-03-09 Orders White, 1.2.840.1 856697608 774923 0923 Methodi 00:00:00 00:00:00 Only Zayra 45148.1.[address] 3.430.2.7 Hospit a .3.905496 l .8 2022-03-09 2022-03-09 Orders Julissa, 1.2.840.1 397834207 2100 431464 Methodi 00:00:00 00:00:00 Only Agnes 39740.1.[address] 3.430.2.7 Hospit a .3.911774 l .8 2022-03-09 2022-03-09 Orders White, 1.2.840.1 217326784 269093 5763 Methodi 00:00:00 00:00:00 Only Zayra 54483.1.[address] 3.430.2.7 Hospit a .3.244341 l .8 2022-03-09 2022-03-09 Orders Julissa, 1.2.840.1 2099 392500 Methodi 00:00:00 00:00:00 Only Agnes 93331.1.[address] 3.430.2.7 Hospit a .3.861035 l .8 2022-03-08 2022-03-08 Office Gemma, 1.2.840.1 732996448 66 Methodi 10:00:00 10:20:00 Visit Tyrone 35352.1.1 201 s t 3.430.2.7 Hospit a .3.008811 l .8 2022-03-08 2022-03-08 Lab Gemma, 1.2.840.1 350420734 23165 Methodi 09:00:00 09:05:00 Tyrone 84339.1.1 202 s t 3.430.2.7 Hospit a .3.874360 l .8 2022-03-08 2022-03-08 Lab Gemma, 1.2.840.1 2135019382966 Methodi 09:00:00 09:05:00 Tyrone 25158.1.1 202 s t 3.430.2.7 Hospit a .3.187888 l .8 2022-03-08 2022-03-08 Office GEMMA, 1.2.840.[id number] [place] [address] 00:00:00 00:00:00 Visit TYRONE 48030.1.[address] .3.108636 .8 2022-03-08 2022-03-08 Travel 1.2.840.1 1.2.997.337 8498 132227 Methodi 00:00:00 00:00:[address] 3.430.2.7 0.2.7.3.698 Ho spita .3.539461 084.8 l .8 2022-03-08 2022-03-08 Travel 1.2.840.1 1.2.790.274 8164 132227 Methodi 00:00:00 00:00:[address] 3.430.2.7 0.2.7.3.698 Ho spita .3.839390 084.8 l .8 2022-03-04 2022-03-04 Documentat Roxanne, 1.2.840.1 [id number] 897 3465649 Methodi 00:00:00 00:00:00 katie Delgado 95055.1.[address] 3.430.2.7 Hospit a .3.113606 l .8 2022-03-04 2022-03-04 Documentat Roxanne, 1.2.840.1 036331749 029 4072256 Methodi 00:00:00 00:00:[address] 3.430.2.7 Hospit a .3.329344 l .8 2022-03-01 2022-03-01 Lab Gemma, 1.2.840.1 349863836 35 Methodi 09:05:00 09:10:00 Tyrone 71343.1.1 011 s t 3.430.2.7 Hospit a .3.492387 l .8 2022-03-01 2022-03-01 Lab Gemma, 1.2.840.1 923841024 Methodi 09:05:00 09:10:00 Tyrone 67872.1.1 011 s t 3.430.2.7 Hospit a .3.447526 l .8 2022-03-01 2022-03-01 Travel 1.2.840.1 1.2.450.254 5754 337136 Methodi 00:00:00 00:00:[address] 3.430.2.7 0.2.7.3.698 Ho spita .3.371799 084.8 l .8 2022-03-01 2022-03-01 Travel 1.2.840.1 1.2.957.678 5891 266586 Methodi 00:00:00 00:00:[address] 3.430.2.7 0.2.7.3.698 Ho spita .3.870097 084.8 l .8 2022-02-24 2022-02-24 Telephone Gemma, 1.2.840.1 801320089 040 7620544 Methodi 00:00:00 00:00:00 Tyrone 74189.1.1 051 s t 3.430.2.7 Hospit a .3.992426 l .8 2022-02-24 2022-02-24 Telephone Gemma, 1.2.840.1 411483154 798 9552984 Methodi 00:00:00 00:00:00 Tyrone 02594.1.1 051 s t 3.430.2.7 Hospit a .3.967368 l .8 2022-02-22 2022-02-22 Office Gemma, 1.2.840.1 599278524 Methodi 10:20:00 10:20:00 Visit Tyrone 38837.1.1 807 s t 3.430.2.7 Hospit a .3.995874 l .8 2022-02-22 2022-02-22 Office Gemma, 1.2.840.1 Methodi 10:20:00 10:20:00 Visit Tyrone 44826.1.1 807 s t 3.430.2.7 Hospit a .3.623320 l .8 2022-02-22 2022-02-22 Lab Gemma, 1.2.840.1 484438766 44148 Methodi 09:20:00 09:25:00 Tyrone 96873.1.1 453 s t 3.430.2.7 Hospit a .3.156372 l .8 2022-02-22 2022-02-22 Lab Gemma, 1.2.840.1 670200554 99198 Methodi 09:20:00 09:25:00 Tyrone 71963.1.1 453 s t 3.430.2.7 Hospit a .3.759740 l .8 2022-02-22 2022-02-22 Travel 1.2.840.1 1.2.240.823 9072 577933 Methodi 00:00:00 00:00:[address] 3.430.2.7 0.2.7.3.698 Ho spita .3.109930 084.8 l .8 2022-02-22 2022-02-22 Travel 1.2.840.1 1.2.765.631 4719 472811 Methodi 00:00:00 00:00:[address] 3.430.2.7 0.2.7.3.698 Ho spita .3.800216 084.8 l .8 2022-02-18 2022-02-18 Telephone Gemma, 1.2.840.1 691972678 553 1733786 Methodi 00:00:00 00:00:00 Tyrone 57820.1.1 158 s t 3.430.2.7 Hospit a .3.011446 l .8 2022-02-18 2022-02-18 Telephone Gemma, 1.2.840.1 440060427 956 8480031 Methodi 00:00:00 00:00:00 Tyrone 21535.1.1 158 s t 3.430.2.7 Hospit a .3.197864 l .8 2022-02-17 2022-02-17 Orders White, 1.2.840.1 955406433 894841 1938 Methodi 00:00:00 00:00:00 Only Zayra 28510.1.[address] 3.430.2.7 Hospit a .3.876201 l .8 2022-02-17 2022-02-17 Orders White, 1.2.840.1 656371709 642517 6822 Methodi 00:00:00 00:00:00 Only Zarya 47409.1.[address] 3.430.2.7 Hospit a .3.449272 l .8 2022-02-15 2022-02-15 Office Gemma, 1.2.840.1 505348568 04563 28516 Methodi 10:40:00 10:40:00 Visit Tyrone 56260.1.1 354 s t 3.430.2.7 Hospit a .3.218890 l .8 2022-02-15 2022-02-15 Office Gemma, 1.2.840.1 382451754 21001 40454 Methodi 10:40:00 10:40:00 Visit Tyrone 90256.1.1 354 s t 3.430.2.7 Hospit a .3.162601 l .8 2022-02-15 2022-02-15 Lab Gemma, 1.2.840.1 159554603 21001 61429 Methodi 09:45:00 09:50:00 Tyrone 31348.1.1 885 s t 3.430.2.7 Hospit a .3.769445 l .8 2022-02-15 2022-02-15 Lab Gemma, 1.2.840.1 894323120 21001 34089 Methodi 09:45:00 09:50:00 Tyrone 44091.1.1 885 s t 3.430.2.7 Hospit a .3.301287 l .8 2022-02-15 2022-02-15 Orders Julissa, 1.2.840.1 047021875 2100 666271 Methodi 00:00:00 00:00:00 Only Agnes 32718.1.[address] 3.430.2.7 Hospit a .3.840626 l .8 2022-02-15 2022-02-15 Orders Pilar, 1.2.840.1 322430122 614622 1912 Methodi 00:00:00 00:00:00 Only Naty 93760.1.[address] 3.430.2.7 Hospit a .3.859128 l .8 2022-02-15 2022-02-15 Travel 1.2.840.1 1.2.870.887 2011 729807 Methodi 00:00:00 00:00:[address] 3.430.2.7 0.2.7.3.698 Ho spita .3.987171 084.8 l .8 2022-02-15 2022-02-15 Orders Julissa, 1.2.840.1 198292376 2099 116771 Methodi 00:00:00 00:00:00 Only Agnes 81523.1.[address] 3.430.2.7 Hospit a .3.914896 l .8 2022-02-15 2022-02-15 Orders Pilar, 1.2.840.1 86078202920990713 Methodi 00:00:00 00:00:00 Only Naty 50840.1.[address] 3.430.2.7 Hospit a .3.827451 l .8 2022-02-15 2022-02-15 Travel 1.2.840.1 1.2.576.989 1854 468821 Methodi 00:00:00 00:00:[address] 3.430.2.7 0.2.7.3.698 Ho spita .3.222277 084.8 l .8 2022-02-12 2022-02-12 Keiry James 1.2.840.1 2099128080 Methodi 10:00:00 12:30:00 Tyrone Rice 00484.1.[address] 3.430.2.7 Hospit a .3.133465 l .8 2022-02-12 2022-02-12 Infusion Keiry Cabral 1.2.840.1 [id number] [id number] Methodi 10:00:00 12:30:00 Tyrone Rice 56107.1.[address] 3.430.2.7 Hospit a .3.030005 l .8 2022-02-11 2022-02-11 Infusion Keiry Cabral 1.2.840.1 428922924 [id number] Methodi 12:00:00 14:30:00 Tyrone Rice 17828.1.[address] 3.430.2.7 Hospit a .3.059009 l .8 2022-02-11 2022-02-11 Infusion Keiry Cabral 1.2.840.1 185966119 7351170574 Methodi 12:00:00 14:30:00 Tyrone Rice 39394.1.[address] 3.430.2.7 Hospit a .3.989027 l .8 2022-02-11 2022-02-11 Travel 1.2.840.1 1.2.404.782 6691 288381 Methodi 00:00:00 00:00:[address] 3.430.2.7 0.2.7.3.698 Ho spita .3.602681 084.8 l .8 2022-02-11 2022-02-11 Travel 1.2.840.1 1.2.663.605 7334 461342 Methodi 00:00:00 00:00:[address] 3.430.2.7 0.2.7.3.698 Ho spita .3.296602 084.8 l .8 2022-02-10 2022-02-10 Infusion Keiry Cabral 1.2.840.1 984294289 8728941001 Methodi 13:15:00 15:45:00 Tyrone Rice 35116.1.[address] 3.430.2.7 Hospit a .3.583944 l .8 2022-02-10 2022-02-10 Infusion Keiry Cabral 1.2.840.1 499469378 4870374643 Methodi 13:15:00 15:45:00 Tyrone Rice 23454.1.[address] 3.430.2.7 Hospit a .3.716791 l .8 2022-02-09 2022-02-09 Infusion Keiyr Cabral 1.2.840.1 037076485 5562841225 Methodi 11:15:00 13:45:00 Tyrone Rice 83140.1.[address] 3.430.2.7 Hospit a .3.135880 l .8 2022-02-09 2022-02-09 Infusion Keiry Cabral 1.2.840.1 494315664 6505825332 Methodi 11:15:00 13:45:00 Tyrone Rice 10191.1.[address] 3.430.2.7 Hospit a .3.481384 l .8 2022-02-09 2022-02-09 Orders Julissa, 1.2.840.1 029266182 2100 602440 Methodi 00:00:00 00:00:00 Only Agnes 20378.1.[address] 3.430.2.7 Hospit a .3.057674 l .8 2022-02-09 2022-02-09 Orders Julissa, 1.2.840.1 274420917 2100 961038 Methodi 00:00:00 00:00:00 Only Agnes 71703.1.[address] 3.430.2.7 Hospit a .3.660240 l .8 2022-02-09 2022-02-09 Orders Julissa, 1.2.840.1 411492324 2100 524460 Methodi 00:00:00 00:00:00 Only Agnes 58603.1.[address] 3.430.2.7 Hospit a .3.033266 l .8 2022-02-09 2022-02-09 Travel 1.2.840.1 1.2.710.141 2123 474383 Methodi 00:00:00 00:00:[address] 3.430.2.7 0.2.7.3.698 Ho spita .3.327095 084.8 l .8 2022-02-09 2022-02-09 Orders Julissa, 1.2.840.1 955799928 2099 553006 Methodi 00:00:00 00:00:00 Only Agnes 40810.1.[address] 3.430.2.7 Hospit a .3.545104 l .8 2022-02-09 2022-02-09 Orders Julissa, 1.2.840.1 937248717 2099 135322 Methodi 00:00:00 00:00:00 Only Agnes 00556.1.[address] 3.430.2.7 Hospit a .3.704565 l .8 2022-02-09 2022-02-09 Orders Julissa, 1.2.840.1 736298125 2100 487267 Methodi 00:00:00 00:00:00 Only Agnes 52776.1.[address] 3.430.2.7 Hospit a .3.185454 l .8 2022-02-09 2022-02-09 Travel 1.2.840.1 1.2.047.096 6321 607341 Methodi 00:00:00 00:00:[address] 3.430.2.7 0.2.7.3.698 Ho spita .3.857074 084.8 l .8 2022-02-08 2022-02-08 Keiry James 1.2.840.1 867637775 [id number] Methodi 13:15:00 15:45:00 Tyrone Rice 65156.1.[address] 3.430.2.7 Hospit a .3.245431 l .8 2022-02-08 2022-02-08 Infusion Kiery Cabral 1.2.840.1 704624688 [id number] Methodi 13:15:00 15:45:00 Tyrone Rice 44371.1.[address] 3.430.2.7 Hospit a .3.343705 l .8 2022-02-08 2022-02-08 Office Gemma, 1.2.840.1 872060236 33715 60512 Methodi 14:00:00 14:20:00 Visit Tyrone 05456.1.1 112 s t 3.430.2.7 Hospit a .3.577511 l .8 2022-02-08 2022-02-08 Office Gemma, 1.2.840.1 820200906 21001 32026 Methodi 14:00:00 14:20:00 Visit Tyrone 89692.1.1 112 s t 3.430.2.7 Hospit a .3.565130 l .8 2022-02-01 2022-02-01 Nurse Only Pingali, 1.2.840.1 298746804 21 [id number] Methodi 09:30:00 10:00:00 Geovanny Zen 36141.1.[address] Alejo 3.430.2.7 Hospit a .3.350393 l .8 2022-02-01 2022-02-01 Nurse Only Pingali, 1.2.840.1 268062339 66260927 Methodi 09:30:00 10:00:00 Geovanny Zen 58345.1.[address] Alejo 3.430.2.7 Hospit a .3.966011 l .8 2022-02-01 2022-02-01 Travel 1.2.840.1 1.2.564.983 2716 125111 Methodi 00:00:00 00:00:[address] 3.430.2.7 0.2.7.3.698 Ho spita .3.120610 084.8 l .8 2022-02-01 2022-02-01 Travel 1.2.840.1 1.2.251.589 4445 987049 Methodi 00:00:00 00:00:[address] 3.430.2.7 0.2.7.3.698 Ho spita .3.812879 084.8 l .8 2022-01-25 2022-01-25 Nurse Only Pingali, 1.2.840.1 506252554 21 [id number] Methodi 09:30:00 10:00:00 Geovanny Zen 51291.1.[address] [place] 3.430.2.7 Hospit a .3.835134 l .8 2022-01-25 2022-01-25 Nurse Only Pingali, 1.2.840.1 631834311 21 87234741 Methodi 09:30:00 10:00:00 Geovanny Zen 11324.1.[address] [place] 3.430.2.7 Hospit a .3.043198 l .8 2022-01-05 2022-01-25 Office [facility], 1.2.840.1 [id number] 21 02417691 Methodi 13:20:00 00:11:31 Visit Kathleen 41646.1.[address] 3.430.2.7 Hospit a .3.655082 l .8 2022-01-05 2022-01-25 [facility] 1.2.840.1 132738352 21 55462117 Methodi 13:20:00 00:11:31 Visit Kathleen 11925.1.[address] 3.430.2.7 Hospit a .3.646830 l .8 2022-01-25 2022-01-25 Travel 1.2.840.1 1.2.436.068 8767 572664 Methodi 00:00:00 00:00:[address] 3.430.2.7 0.2.7.3.698 Ho spita .3.729085 084.8 l .8 2022-01-25 2022-01-25 Travel 1.2.840.1 1.2.840.340 1097 531462 Methodi 00:00:00 00:00:[address] 3.430.2.7 0.2.7.3.698 Ho spita .3.834352 084.8 l .8 2022-01-20 2022-01-20 Telephone [place], 1.2.840.1 237487701 2099 237447 Methodi 00:00:00 00:00:00 Jesy[address] 3.430.2.7 Hospit a .3.739681 l .8 2022-01-20 2022-01-20 Telephone [place], 1.2.840.1 [id number] 2099 886154 Methodi 00:00:00 00:00:00 Jesy[address] 3.430.2.7 Hospit a .3.765626 l .8 2022-01-19 2022-01-19 Orders White, 1.2.840.1 010541078 223080 2335 Methodi 00:00:00 00:00:00 Only Zayra 93983.1.[address] 3.430.2.7 Hospit a .3.140704 l .8 2022-01-19 2022-01-19 Orders White, 1.2.840.1 335302843 314638 2093 Methodi 00:00:00 00:00:00 Only Zayra 19877.1.[address] 3.430.2.7 Hospit a .3.792215 l .8 2022-01-19 2022-01-19 Orders White, 1.2.840.1 204173865 166458 2767 Methodi 00:00:00 00:00:00 Only Zayra 54259.1.[address] 3.430.2.7 Hospit a .3.128919 l .8 2022-01-19 2022-01-19 Orders White, 1.2.840.1 226613320 996451 9793 Methodi 00:00:00 00:00:00 Only Zayra 75265.1.[address] 3.430.2.7 Hospit a .3.830833 l .8 2022-01-18 2022-01-18 Office Gemma, 1.2.840.1 797795911 53514 Methodi 10:00:00 10:00:00 Visit Tyrone 08165.1.1 011 s t 3.430.2.7 Hospit a .3.889411 l .8 2022-01-18 2022-01-18 Office Gemma, 1.2.840.1 654129129 21001 08126 Methodi 10:00:00 10:00:00 Visit Tyrone 39082.1.1 011 s t 3.430.2.7 Hospit a .3.247528 l .8 2022-01-18 2022-01-18 Lab Gemma, 1.2.840.1 003578856 21001 05882 Methodi 09:00:00 09:05:00 Tyrone 79787.1.1 163 [address] t 3.430.2.7 Hospit a .3.819225 l .8 2022-01-18 2022-01-18 Lab Gemma, 1.2.840.1 564795742 21001 08881 Methodi 09:00:00 09:05:00 Tyrone 32929.1.1 163 s t 3.430.2.7 Hospit a .3.323205 l .8 2022-01-18 2022-01-18 Telephone Gemma, 1.2.840.1 [id number] 898 [id number] Methodi 00:00:00 00:00:00 Tyrone 82610.1.1 742 s t 3.430.2.7 Hospit a .3.407374 l .8 2022-01-18 2022-01-18 Orders Gemma, 1.2.840.1 998176841 93529 17010 Methodi 00:00:00 00:00:00 Only Tyrone 02307.1.1 067 s t 3.430.2.7 Hospit a .3.436337 l .8 2022-01-18 2022-01-18 Orders Umoru, 1.2.840.1 413900954 689461 5768 Methodi 00:00:00 00:00:00 Only Godsfavour 22135.1.1 963 s t 3.430.2.7 Hospit a .3.931742 l .8 2022-01-18 2022-01-18 Travel 1.2.840.1 1.2.001.998 7434 133914 Methodi 00:00:00 00:00:[address] 3.430.2.7 0.2.7.3.698 Ho spita .3.605387 084.8 l .8 2022-01-18 2022-01-18 Telephone Gemma, 1.2.840.1 978269689 960 5506670 Methodi 00:00:00 00:00:00 Tyrone 07160.1.1 742 s t 3.430.2.7 Hospit a .3.696121 l .8 2022-01-18 2022-01-18 Orders Gemma, 1.2.840.1 534231843 18876 07015 Methodi 00:00:00 00:00:00 Only Tyrone 66545.1.1 067 s t 3.430.2.7 Hospit a .3.210059 l .8 2022-01-18 2022-01-18 Orders aJcquelynoru, 1.2.840.1 310144785 653873 4077 Methodi 00:00:00 00:00:00 Only Godsfavour 18548.1.1 963 s t 3.430.2.7 Hospit a .3.472726 l .8 2022-01-18 2022-01-18 Travel 1.2.840.1 1.2.732.266 6925 115125 Methodi 00:00:00 00:00:[address] 3.430.2.7 0.2.7.3.698 Ho spita .3.531135 084.8 l .8 2022-01-12 2022-01-12 Nurse Only Pingali, 1.2.840.1 931874033 50464219 Methodi 09:30:00 10:00:00 Geovanny Zen 32114.1.[address] Alejo 3.430.2.7 Hospit a .3.244319 l .8 2022-01-12 2022-01-12 Nurse Only Pingali, 1.2.840.1 161809954 76445342 Methodi 09:30:00 10:00:00 Geovanny Zen 41047.1.[address] Alejo 3.430.2.7 Hospit a .3.779258 l .8 2022-01-12 2022-01-12 Orders White, 1.2.840.1 510954250 534031 4788 Methodi 00:00:00 00:00:00 Only Zayra 53548.1.[address] 3.430.2.7 Hospit a .3.592146 l .8 2022-01-12 2022-01-12 Telephone Gemma, 1.2.840.1 832275135 647 0072093 Methodi 00:00:00 00:00:00 Tyrone 38835.1.1 099 s t 3.430.2.7 Hospit a .3.302583 l .8 2022-01-12 2022-01-12 Travel 1.2.840.1 1.2.289.238 1355 476622 Methodi 00:00:00 00:00:[address] 3.430.2.7 0.2.7.3.698 Ho spita .3.754194 084.8 l .8 2022-01-12 2022-01-12 Orders White, 1.2.840.1 616542116 617522 8526 Methodi 00:00:00 00:00:00 Only Zayra 14862.1.[address] 3.430.2.7 Hospit a .3.087201 l .8 2022-01-12 2022-01-12 Telephone Gemma 1.2.840.1 874282239 769 1021041 Methodi 00:00:00 00:00:00 Tyrone 47566.1.1 099 s t 3.430.2.7 Hospit a .3.634669 l .8 2022-01-12 2022-01-12 Travel 1.2.840.1 1.2.384.555 6663 206445 Methodi 00:00:00 00:00:[address] 3.430.2.7 0.2.7.3.698 Ho spita .3.027574 084.8 l .8 2022-01-08 2022-01-08 Infusion Keiry Cabral 1.2.840.1 519248694 3346097732 Methodi 12:00:00 14:30:00 Tyrone Rice [address]53.1.[address] 3.430.2.7 Hospit a .3.132186 l .8 2022-01-08 2022-01-08 Infusion Keiry Cabral 1.2.840.1 642772380 3590070610 Methodi 12:00:00 14:30:[address] Tyrone Rice 45814.1.[address] 3.430.2.7 Hospit a .3.513808 l .8 2022-01-08 2022-01-08 Travel 1.2.840.1 1.2.103.357 2301 223843 Methodi 00:00:00 00:00:[address] 3.430.2.7 0.2.7.3.698 Ho spita .3.592931 084.8 l .8 2022-01-08 2022-01-08 Travel 1.2.840.1 1.2.502.147 8784 718322 Methodi 00:00:00 00:00:[address] 3.430.2.7 0.2.7.3.698 Ho spita .3.135711 084.8 l .8 2022-01-07 2022-01-07 Infusion Marianna Keiry 1.2.840.1 307715299 0432117601 Methodi 10:00:00 12:30:[address] Tyrone Rice 139[address].1.[address] 3.430.2.7 Hospit a .3.196985 l .8 2022-01-07 2022-01-07 Infusion Keiry Cabral 1.2.840.1 779669893 1123577767 Methodi 10:00:00 12:30:[address] Tyrone Rice 91725.1.[address] 3.430.2.7 Hospit a .3.867373 l .8 2022-01-07 2022-01-07 Orders White, 1.2.840.1 160076884 568601 2505 Methodi 00:00:00 00:00:00 [address] Zayra 18949.1.[address] 3.430.2.7 Hospit a .3.741304 l .8 2022-01-07 2022-01-07 Travel 1.2.840.1 1.2.004.157 8498 498501 Methodi 00:00:00 00:00:[address] 3.430.2.7 0.2.7.3.698 Ho spita .3.168752 084.8 l .8 2022-01-07 2022-01-07 Orders White, 1.2.840.1 251833538 704691 8375 Methodi 00:00:00 00:00:00 Only Zayra 57359.1.[address] 3.430.2.7 Hospit a .3.226301 l .8 2022-01-07 2022-01-07 Orders White, 1.2.840.1 301236288 466713 2316 Methodi 00:00:00 00:00:00 Only Zayra 15206.1.[address] 3.430.2.7 Hospit a .3.348339 l .8 2022-01-07 2022-01-07 Travel 1.2.840.1 1.2.239.885 8280 195956 Methodi 00:00:00 00:00:[address] 3.430.2.7 0.2.7.3.698 Ho spita .3.190817 084.8 l .8 2022-01-07 2022-01-07 Orders White, 1.2.840.1 953834170 317707 1440 Methodi 00:00:00 00:00:00 Only Zayra 44562.1.[address] 3.430.2.7 Hospit a .3.809090 l .8 2022-01-06 2022-01-06 Infusion Keiry Cabral 1.2.840.1 262208107 8327669266 Methodi 10:15:00 12:45:[address] Tyrone Rice [address].1.[address] 3.430.2.7 Hospit a .3.153304 l .8 2022-01-06 2022-01-06 Infusion Keiry Cabral 1.2.840.1 225933017 1763142006 Methodi 10:15:00 12:45:00 Tyrone Rice [address]505.1.[address] 3.430.2.7 Hospit a .3.111984 l .8 2022-01-06 2022-01-06 Travel 1.2.840.1 1.2.821.625 9653 128201 Methodi 00:00:00 00:00:[address] 3.430.2.7 0.2.7.3.698 Ho spita .3.903721 084.8 l .8 2022-01-06 2022-01-06 Travel 1.2.840.1 1.2.187.649 8570 128201 Methodi 00:00:00 00:00:[address] 3.430.2.7 0.2.7.3.698 Ho spita .3.777293 084.8 l .8 2022-01-05 2022-01-05 Infusion Marianna Keiry 1.2.840.1 907681911 3565247263 Methodi 11:45:00 14:15:00 Tyrone Rice 07774.1.[address] 3.430.2.7 Hospit a .3.014843 l .8 2022-01-05 2022-01-05 Infusion Cabral Keiry 1.2.840.1 984934243 1793716877 Methodi 11:45:00 14:15:00 Tyrone Rice 64119.1.[address] 3.430.2.7 Hospit a .3.582547 l .8 2022-01-05 2022-01-05 Orders Young, 1.2.840.1 239735557 725384 9744 Methodi 00:00:00 00:00:00 Only Esthela 93441.1.[address] 3.430.2.7 Hospit a .3.047076 l .8 2022-01-05 2022-01-05 Orders Young, 1.2.840.1 364675660 456329 2922 Methodi 00:00:00 00:00:00 Only Esthela 38801.1.[address] 3.430.2.7 Hospit a .3.463224 l .8 2022-01-05 2022-01-05 Travel 1.2.840.1 1.2.788.357 1120 248017 Methodi 00:00:00 00:00:[address] 3.430.2.7 0.2.7.3.698 Ho spita .3.321542 084.8 l .8 2022-01-05 2022-01-05 Orders Young, 1.2.840.1 881171470 964281 5319 Methodi 00:00:00 00:00:00 Only Esthela 19977.1.[address] 3.430.2.7 Hospit a .3.784487 l .8 2022-01-05 2022-01-05 Orders Young, 1.2.840.1 118718967 218886 4725 Methodi 00:00:00 00:00:00 Only Esthela 49161.1.[address] 3.430.2.7 Hospit a .3.575266 l .8 2022-01-05 2022-01-05 Travel 1.2.840.1 1.2.633.388 4854 123984 Methodi 00:00:00 00:00:[address] 3.430.2.7 0.2.7.3.698 Ho spita .3.969183 084.8 l .8 2022-01-04 2022-01-04 Infusion Keiry Cabral 1.2.840.1 869588757 9865955542 Methodi 10:00:00 12:30:00 Tyrone Rice 88347.1.[address] 3.430.2.7 Hospit a .3.358810 l .8 2022-01-04 2022-01-04 Infusion Keiry Cabral 1.2.840.1 810973283 9630410767 Methodi 10:00:00 12:30:00 Tyrone Rice 08641.1.[address] 3.430.2.7 Hospit a .3.122499 l .8 2022-01-04 2022-01-04 Office Gemma, 1.2.840.1 307418400 80369 01825 Methodi 11:40:00 12:27:02 Visit Tyrone 17552.1.1 730 s t 3.430.2.7 Hospit a .3.608010 l .8 2022-01-04 2022-01-04 Office Gemma, 1.2.840.1 928026175 66902 29567 Methodi 11:40:00 12:27:02 Visit Tyrone 75432.1.1 730 s t 3.430.2.7 Hospit a .3.054964 l .8 2022-01-04 2022-01-04 Orders Khanh, 1.2.840.1 186674389 862114 7938 Methodi 00:00:00 00:00:00 Only Zayra 66563.1.[address] 3.430.2.7 Hospit a .3.015436 l .8 2022-01-04 2022-01-04 Orders Umoru, 1.2.840.1 120200201 137429 7157 Methodi 00:00:00 00:00:00 Only Godsfavour 69268.1.1 705 s t 3.430.2.7 Hospit a .3.839907 l .8 2022-01-04 2022-01-04 Orders Julissa, 1.2.840.1 2099 373400 Methodi 00:00:00 00:00:00 Only Agnes 82812.1.[address] 3.430.2.7 Hospit a .3.612629 l .8 2022-01-04 2022-01-04 Travel 1.2.840.1 1.2.192.202 1961 305123 Methodi 00:00:00 00:00:[address] 3.430.2.7 0.2.7.3.698 Ho spita .3.406997 084.8 l .8 2022-01-04 2022-01-04 Orders White, 1.2.840.1 306675645 310386 5102 Methodi 00:00:00 00:00:00 Only Zayra 71455.1.[address] 3.430.2.7 Hospit a .3.586371 l .8 2022-01-04 2022-01-04 Orders Umoru, 1.2.840.1 389788430 639453 4329 Methodi 00:00:00 00:00:00 Only Godsfavour 70074.1.1 705 s t 3.430.2.7 Hospit a .3.251259 l .8 2022-01-04 2022-01-04 Orders Julissa, 1.2.840.1 2099 577875 Methodi 00:00:00 00:00:00 Only Agnes 79406.1.[address] 3.430.2.7 Hospit a .3.821776 l .8 2022-01-04 2022-01-04 Travel 1.2.840.1 1.2.770.567 6827 192019 Methodi 00:00:00 00:00:[address] 3.430.2.7 0.2.7.3.698 Ho spita .3.361771 084.8 l .8 2021-12-28 2021-12-28 Office Gemma, 1.2.840.1 15 Methodi 10:20:00 11:01:47 Visit Tyrone 68234.1.1 034 s t 3.430.2.7 Hospit a .3.212733 l .8 2021-12-28 2021-12-28 Office Gemma, 1.2.840.1 15 Methodi 10:20:00 11:01:47 Visit Tyrone 56270.1.1 034 s t 3.430.2.7 Hospit a .3.823326 l .8 2021-12-28 2021-12-28 Lab Gemma, 1.2.840.1 903224918 15 Methodi 09:20:00 09:25:00 Tyrone 31870.1.1 348 s t 3.430.2.7 Hospit a .3.474822 l .8 2021-12-28 2021-12-28 Lab Gemma, 1.2.840.1 82416007315 Methodi 09:20:00 09:25:00 Tyrone 09840.1.1 348 s t 3.430.2.7 Hospit a .3.726788 l .8 2021-12-28 2021-12-28 Travel 1.2.840.1 1.2.426.929 0546 962842 Methodi 00:00:00 00:00:[address] 3.430.2.7 0.2.7.3.698 Ho spita .3.579769 084.8 l .8 2021-12-28 2021-12-28 Travel 1.2.840.1 1.2.730.570 5534 886769 Methodi 00:00:00 00:00:[address] 3.430.2.7 0.2.7.3.698 Ho spita .3.587132 084.8 l .8 2021-12-21 2021-12-21 Lab Gemma, 1.2.840.1 234860801 75578 Methodi 13:10:00 13:15:00 Tyrone 98231.1.1 136 s t 3.430.2.7 Hospit a .3.147231 l .8 2021-12-21 2021-12-21 Lab Gemma, 1.2.840.1 349401121 77504 Methodi 13:10:00 13:15:00 Tyrone 23478.1.1 136 s t 3.430.2.7 Hospit a .3.886242 l .8 2021-12-21 2021-12-21 Travel 1.2.840.1 1.2.815.938 6726 382585 Methodi 00:00:00 00:00:[address] 3.430.2.7 0.2.7.3.698 Ho spita .3.152596 084.8 l .8 2021-12-21 2021-12-21 Travel 1.2.840.1 1.2.935.535 6401 956270 Methodi 00:00:00 00:00:[address] 3.430.2.7 0.2.7.3.698 Ho spita .3.367962 084.8 l .8 2021-12-17 2021-12-17 Orders Pancho, 1.2.840.1 151499821 255108 4720 Methodi 00:00:00 00:00:00 Only Deanna 74305.1.[address] [place] 3.430.2.7 Hospit a .3.255336 l .8 2021-12-17 2021-12-17 Orders Pancho, 1.2.840.1 956694467 041656 8945 Methodi 00:00:00 00:00:00 Only Deanna 10807.1.[address] [place] 3.430.2.7 Hospit a .3.099903 l .8 2021-12-14 2021-12-14 Nurse Only Pingali, 1.2.840.1 814398900 29267262 Methodi 11:00:00 11:30:00 Geovanny Zen 84020.1.[address] Alejo 3.430.2.7 Hospit a .3.408645 l .8 2021-12-14 2021-12-14 Nurse Only Pingali, 1.2.840.1 304692744 61699993 Methodi 11:00:00 11:30:00 Geovanny Zen 89594.1.[address] Alejo 3.430.2.7 Hospit a .3.403720 l .8 2021-12-14 2021-12-14 Travel 1.2.840.1 1.2.296.463 0760 710540 Methodi 00:00:00 00:00:[address] 3.430.2.7 0.2.7.3.698 Ho spita .3.681552 084.8 l .8 2021-12-14 2021-12-14 Travel 1.2.840.1 1.2.696.463 4559 867338 Methodi 00:00:00 00:00:[address] 3.430.2.7 0.2.7.3.698 Ho spita .3.073926 084.8 l .8 2021-12-09 2021-12-09 Keiry James 1.2.840.1 749826324 5677736593 Methodi 13:15:00 15:45:00 Gemma, Tyrone 38581.1.[address] 3.430.2.7 Hospit a .3.101242 l .8 2021-12-09 2021-12-09 Office Gemma, 1.2.840.1 177051614 10824 25866 Methodi 14:20:00 14:20:00 Visit Tyrone 83667.1.1 181 s t 3.430.2.7 Hospit a .3.854674 l .8 2021-12-09 2021-12-09 Office Gemma, 1.2.840.1 958496171 21001 68175 Methodi 14:20:00 14:20:00 Visit Tyrone 10968.1.1 181 s t 3.430.2.7 Hospit a .3.957676 l .8 2021-12-09 2021-12-09 Lab Gemma, 1.2.840.1 782083280 21001 60086 Methodi 14:00:00 14:05:00 Tyrone 28925.1.1 855 s t 3.430.2.7 Hospit a .3.379760 l .8 2021-12-09 2021-12-09 Lab Gemma, 1.2.840.1 291264686 68419 Methodi 14:00:00 14:05:00 Tyrone 27639.1.1 855 s t 3.430.2.7 Hospit a .3.948016 l .8 2021-12-09 2021-12-09 Infusion GEMMA, 1.2.840.1 375596148 2100 358955 [place] 00:00:00 00:00:00 TYRONE 44671.1.[address].7 [address] .3.657484 .8 2021-12-09 2021-12-09 Orders Julissa, 1.2.840.1 264253662 2100 825346 Methodi 00:00:00 00:00:00 Only Agnes 68474.1.[address] 3.430.2.7 Hospit a .3.008890 l .8 2021-12-09 2021-12-09 Orders Julissa, 1.2.840.1 579333781 2100 880646 Methodi 00:00:00 00:00:00 Only Agnes 72038.1.[address] 3.430.2.7 Hospit a .3.003875 l .8 2021-12-09 2021-12-09 Orders White, 1.2.840.1 945343901 864406 8851 Methodi 00:00:00 00:00:00 Only Zayra 61000.1.[address] 3.430.2.7 Hospit a .3.281772 l .8 2021-12-09 2021-12-09 Orders Julissa, 1.2.840.1 824984262 2100 352108 Methodi 00:00:00 00:00:00 Only Agnes 74732.1.[address] 3.430.2.7 Hospit a .3.268489 l .8 2021-12-09 2021-12-09 Orders Julissa, 1.2.840.1 569062729 2100 020733 Methodi 00:00:00 00:00:00 Only Agnes 10807.1.[address] 3.430.2.7 Hospit a .3.745640 l .8 2021-12-09 2021-12-09 Orders White, 1.2.840.1 308046829 007285 0516 Methodi 00:00:00 00:00:00 Only Zayra 78687.1.[address] 3.430.2.7 Hospit a .3.934578 l .8 2021-12-08 2021-12-08 Infusion Keiry Cabral 1.2.840.1 438091343 2683145951 Methodi 11:30:00 14:00:[address] 3.430.2.7 Hospit a .3.212838 l .8 2021-12-08 2021-12-08 Infusion Keiry Cabral 1.2.840.1 844134296 3649785901 Methodi 11:30:00 14:00:00 Tyrone Rice 54084.1.[address] 3.430.2.7 Hospit a .3.245729 l .8 2021-12-08 2021-12-08 Travel 1.2.840.1 1.2.596.192 4498 806230 Methodi 00:00:00 00:00:[address] 3.430.2.7 0.2.7.3.698 Ho spita .3.148487 084.8 l .8 2021-12-08 2021-12-08 Travel 1.2.840.1 1.2.964.261 8384 629260 Methodi 00:00:00 00:00:[address] 3.430.2.7 0.2.7.3.698 Ho spita .3.925334 084.8 l .8 2021-12-04 2021-12-04 Infusion Keiry Cabral 1.2.840.1 102353222 3813084551 Methodi 11:45:00 14:15:00 Tyrone Rice 17130.1.[address] 3.430.2.7 Hospit a .3.329023 l .8 2021-12-04 2021-12-04 Infusion Keiry Cabral 1.2.840.1 889807410 3916323152 Methodi 11:45:00 14:15:00 Tyrone Rice 70745.1.[address] 3.430.2.7 Hospit a .3.793361 l .8 2021-12-03 2021-12-03 Infusion Keiry Cabral 1.2.840.1 646563285 4272690507 Methodi 12:00:00 14:30:[address]a [address]83.1.[address] 3.430.2.7 Hospit a .3.814711 l .8 2021-12-03 2021-12-03 Infusion Keiry Cabral 1.2.840.1 503170466 3423437645 Methodi 12:00:00 14:30:00 Tyrone Rice 59951.1.[address] 3.430.2.7 Hospit a .3.415016 l .8 2021-12-03 2021-12-03 Orders White, 1.2.840.1 660245688 949689 3731 Methodi 00:00:00 00:00:00 Only Zayra 70320.1.[address] 3.430.2.7 Hospit a .3.333979 l .8 2021-12-03 2021-12-03 Travel 1.2.840.1 1.2.766.552 7207 007779 Methodi 00:00:00 00:00:[address] 3.430.2.7 0.2.7.3.698 Ho spita .3.706408 084.8 l .8 2021-12-03 2021-12-03 Orders White, 1.2.840.1 187007522 216161 9198 Methodi 00:00:00 00:00:00 Only Zayra 25768.1.[address] 3.430.2.7 Hospit a .3.179426 l .8 2021-12-03 2021-12-03 Travel 1.2.840.1 1.2.641.748 5346 661267 Methodi 00:00:00 00:00:[address] 3.430.2.7 0.2.7.3.698 Ho spita .3.469517 084.8 l .8 2021-12-02 2021-12-02 Infusion Keiry Cabral 1.2.840.1 561007363 6950345570 Methodi 13:15:00 15:45:00 Tyrone Rice 58840.1.[address] 3.430.2.7 Hospit a .3.226616 l .8 2021-12-02 2021-12-02 Infusion Keiry Cabral 1.2.840.1 817974949 8070815255 Methodi 13:15:00 15:45:00 Tyrone Rice [address]197.1.[address] 3.430.2.7 Hospit a .3.420549 l .8 2021-12-02 2021-12-02 Travel 1.2.840.1 1.2.638.150 6631 719833 Methodi 00:00:00 00:00:[address] 3.430.2.7 0.2.7.3.698 Ho spita .3.684247 084.8 l .8 2021-12-02 2021-12-02 Travel 1.2.840.1 1.2.323.443 2057 110177 Methodi 00:00:00 00:00:[address] 3.430.2.7 0.2.7.3.698 Ho spita .3.195263 084.8 l .8 2021-12-01 2021-12-01 Infusion Keiry Cabral 1.2.840.1 597539936 0743147197 Methodi 11:15:00 13:45:00 Tyrone Rice 20724.1.[address] 3.430.2.7 Hospit a .3.292030 l .8 2021-12-01 2021-12-01 Infusion Keiry Cabral 1.2.840.1 805368423 6286273252 Methodi 11:15:00 13:45:00 Tyrone Rice [address]655.1.[address] 3.430.2.7 Hospit a .3.739960 l .8 2021-12-01 2021-12-01 Travel 1.2.840.1 1.2.437.609 9178 046225 Methodi 00:00:00 00:00:[address] 3.430.2.7 0.2.7.3.698 Ho spita .3.611307 084.8 l .8 2021-12-01 2021-12-01 Travel 1.2.840.1 1.2.644.867 2061 980744 Methodi 00:00:00 00:00:[address] 3.430.2.7 0.2.7.3.698 Ho spita .3.673239 084.8 l .8 2021-11-30 2021-11-30 Infusion Keiry Cabral 1.2.840.1 893119735 8751723516 Methodi 11:45:00 14:15:00 Tyrone Rice 40738.1.[address] 3.430.2.7 Hospit a .3.537945 l .8 2021-11-30 2021-11-30 Infusion Keiry Cabral 1.2.840.1 485569157 2124824662 Methodi 11:45:00 14:15:00 Tyrone Rice 87052.1.[address] 3.430.2.7 Hospit a .3.782501 l .8 2021-11-30 2021-11-30 Office Gemma, 1.2.840.1 071806743 21001 59624 Methodi 11:40:00 12:00:00 Visit Tyrone 19585.1.1 340 s t 3.430.2.7 Hospit a .3.839747 l .8 2021-11-30 2021-11-30 Office Gemma, 1.2.840.1 39876 Methodi 11:40:00 12:00:00 Visit Tyrone 37338.1.1 340 s t 3.430.2.7 Hospit a .3.760807 l .8 2021-11-30 2021-11-30 Travel 1.2.840.1 1.2.452.884 0083 670090 Methodi 00:00:00 00:00:[address] 3.430.2.7 0.2.7.3.698 Ho spita .3.295750 084.8 l .8 2021-11-30 2021-11-30 Travel 1.2.840.1 1.2.766.412 3556 754100 Methodi 00:00:00 00:00:[address] 3.430.2.7 0.2.7.3.698 Ho spita .3.906635 084.8 l .8 2021-11-23 2021-11-23 Nurse Only Pingali, 1.2.840.1 [id number] Methodi 10:30:00 11:00:00 Geovanny Zen 09060.1.[address] [place] 3.430.2.7 Hospit a .3.703407 l .8 2021-11-23 2021-11-23 Nurse Only Pingali, 1.2.840.1 057885999 39550027 Methodi 10:30:00 11:00:00 Geovanny Zen 52973.1.[address] [place] 3.430.2.7 Hospit a .3.446541 l .8 2021-11-23 2021-11-23 Travel 1.2.840.1 1.2.275.004 9806 179910 Methodi 00:00:00 00:00:[address] 3.430.2.7 0.2.7.3.698 Ho spita .3.473539 084.8 l .8 2021-11-23 2021-11-23 Travel 1.2.840.1 1.2.353.445 3761 002173 Methodi 00:00:00 00:00:[address] 3.430.2.7 0.2.7.3.698 Ho spita .3.650222 084.8 l .8 2021-11-18 2021-11-18 Orders White, 1.2.840.1 334189095 599943 7923 Methodi 00:00:00 00:00:00 Only Zayra 34403.1.[address] 3.430.2.7 Hospit a .3.774696 l .8 2021-11-18 2021-11-18 Orders White, 1.2.840.1 511263098 450692 8401 Methodi 00:00:00 00:00:00 Only Zayra 64609.1.[address] 3.430.2.7 Hospit a .3.699365 l .8 2021-11-16 2021-11-16 Nurse Only Pingali, 1.2.840.1 488362604 28152118 Methodi 10:30:00 11:00:00 Geovanny Zen 66636.1.[address] [place] 3.430.2.7 Hospit a .3.559724 l .8 2021-11-16 2021-11-16 Nurse Only Pingali, 1.2.840.1 546170723 63963494 Methodi 10:30:00 11:00:00 Geovanny Zen 14741.1.[address] [place] 3.430.2.7 Hospit a .3.659525 l .8 2021-11-16 2021-11-16 Orders Samkutty, 1.2.840.1 717023105 2100 296702 Methodi 00:00:00 00:00:00 Only Srinivasan 66236.1.[address] 3.430.2.7 Hospit a .3.299057 l .8 2021-11-16 2021-11-16 Travel 1.2.840.1 1.2.469.111 0733 287356 Methodi 00:00:00 00:00:[address] 3.430.2.7 0.2.7.3.698 Ho spita .3.833043 084.8 l .8 2021-11-16 2021-11-16 Orders Samhaileeutty, 1.2.840.1 617682965 2100 012450 Methodi 00:00:00 00:00:00 Only Srinivasan 74461.1.[address] 3.430.2.7 Hospit a .3.019100 l .8 2021-11-16 2021-11-16 Travel 1.2.840.1 1.2.284.990 0621 263337 Methodi 00:00:00 00:00:[address] 3.430.2.7 0.2.7.3.698 Ho spita .3.523944 084.8 l .8 2021-11-13 2021-11-13 Travel 1.2.840.1 1.2.578.482 2506 573767 Methodi 00:00:00 00:00:[address] 3.430.2.7 0.2.7.3.698 Ho spita .3.616759 084.8 l .8 2021-11-13 2021-11-13 Travel 1.2.840.1 1.2.309.766 2424 636361 Methodi 00:00:00 00:00:[address] 3.430.2.7 0.2.7.3.698 Ho spita .3.523843 084.8 l .8 2021-11-11 2021-11-11 Documentat Analia, 1.2.840.1 679430706 688 5059393 Methodi 00:00:00 00:00:00 ion Kathia 72247.1.[address] 3.430.2.7 Hospit a .3.552442 l .8 2021-11-11 2021-11-11 Orders White, 1.2.840.1 721943825 146952 5490 Methodi 00:00:00 00:00:00 Only Zayra 18258.1.[address] 3.430.2.7 Hospit a .3.922428 l .8 2021-11-11 2021-11-11 Telephone Gemma, 1.2.840.1 642070455 034 4477054 Methodi 00:00:00 00:00:00 Tyrone 94854.1.1 843 s t 3.430.2.7 Hospit a .3.870104 l .8 2021-11-11 2021-11-11 Travel 1.2.840.1 1.2.292.384 3306 564486 Methodi 00:00:00 00:00:[address] 3.430.2.7 0.2.7.3.698 Ho spita .3.677492 084.8 l .8 2021-11-11 2021-11-11 Documentat Analia, 1.2.840.1 873391503 168 6974386 Methodi 00:00:00 00:00:00 ion Kathia 34052.1.[address] 3.430.2.7 Hospit a .3.759883 l .8 2021-11-11 2021-11-11 Orders White, 1.2.840.1 469316207 297571 0788 Methodi 00:00:00 00:00:00 Only Zayra 22425.1.[address] 3.430.2.7 Hospit a .3.126757 l .8 2021-11-11 2021-11-11 Telephone Gemma, 1.2.840.1 913782470 656 5549267 Methodi 00:00:00 00:00:00 Tyrone 56129.1.1 843 s t 3.430.2.7 Hospit a .3.984517 l .8 2021-11-11 2021-11-11 Travel 1.2.840.1 1.2.576.871 8760 196670 Methodi 00:00:00 00:00:[address] 3.430.2.7 0.2.7.3.698 Ho spita .3.112050 084.8 l .8 2021-11-09 2021-11-09 Office Gemma, 1.2.840.1 688726766 64531 82095 Methodi 10:20:00 10:40:00 Visit Tyrone 35153.1.1 284 s t 3.430.2.7 Hospit a .3.930067 l .8 2021-11-09 2021-11-09 Office Gemma, 1.2.840.1 631790759 48465 Methodi 10:20:00 10:40:00 Visit Tyrone 44034.1.1 284 s t 3.430.2.7 Hospit a .3.384305 l .8 2021-11-09 2021-11-09 Lab Pingali, 1.2.840.1 Methodi 09:20:00 09:25:00 Geovanny Zen 39781.1.[address] [place] 3.430.2.7 Hospit a .3.703604 l .8 2021-11-09 2021-11-09 Lab Pingali, 1.2.840.1 Methodi 09:20:00 09:25:00 Geovanny Zen 07941.1.[address] [place] 3.430.2.7 Hospit a .3.252911 l .8 2021-11-09 2021-11-09 Refill Gemma, 1.2.840.1 172582593 47 Methodi 00:00:00 00:00:00 Tyrone 75432.1.1 353 s t 3.430.2.7 Hospit a .3.233730 l .8 2021-11-09 2021-11-09 Travel 1.2.840.1 1.2.602.769 5780 869328 Methodi 00:00:00 00:00:[address] 3.430.2.7 0.2.7.3.698 Ho spita .3.637433 084.8 l .8 2021-11-09 2021-11-09 Refill Gemma, 1.2.840.1 040897310 21001 61154 Methodi 00:00:00 00:00:00 Tyrone 58591.1.1 353 s t 3.430.2.7 Hospit a .3.284841 l .8 2021-11-09 2021-11-09 Travel 1.2.840.1 1.2.961.912 9374 081919 Methodi 00:00:00 00:00:[address] 3.430.2.7 0.2.7.3.698 Ho spita .3.983407 084.8 l .8 2021-11-06 2021-11-06 Telephone Jesse, 1.2.840.1 7616321012099183 Methodi 00:00:00 00:00:[address] 3.430.2.7 Hospit a .3.736648 l .8 2021-11-06 2021-11-06 Telephone Jesse, 1.2.840.1 2099183 Methodi 00:00:00 00:00:[address] 3.430.2.7 Hospit a .3.777473 l .8 2021-11-03 2021-11-03 Infusion Keiry Cabral 1.2.840.1 019281666 [id number] Methodi 11:30:00 14:00:00 Tyrone Rice 68580.1.[address] 3.430.2.7 Hospit a .3.021143 l .8 2021-11-03 2021-11-03 Infusion Keiry Cabral 1.2.840.1 027977690 3203376774 Methodi 11:30:00 14:00:00 Tyrone Rice 27697.1.[address] 3.430.2.7 Hospit a .3.830589 l .8 2021-11-03 2021-11-03 Orders Gemma, 1.2.840.1 590876267 59628 23728 Methodi 00:00:00 00:00:00 Only Tyrone 02049.1.1 832 s t 3.430.2.7 Hospit a .3.838773 l .8 2021-11-03 2021-11-03 Travel 1.2.840.1 1.2.704.047 0597 752673 Methodi 00:00:00 00:00:[address] 3.430.2.7 0.2.7.3.698 Ho spita .3.045316 084.8 l .8 2021-11-03 2021-11-03 Orders Gemma, 1.2.840.1 460987430 13205 59373 Methodi 00:00:00 00:00:00 Only Tyrone 37685.1.1 832 s t 3.430.2.7 Hospit a .3.124978 l .8 2021-11-03 2021-11-03 Travel 1.2.840.1 1.2.791.415 4358 974866 Methodi 00:00:00 00:00:[address] 3.430.2.7 0.2.7.3.698 Ho spita .3.647668 084.8 l .8 2021-11-02 2021-11-02 Infusion Keiry Cabral 1.2.840.1 217288755 [id number] Methodi 11:30:00 14:00:00 Tyrone Rice 89151.1.[address] 3.430.2.7 Hospit a .3.676861 l .8 2021-11-02 2021-11-02 Infusion Keiry Cabral 1.2.840.1 753093323 2198788708 Methodi 11:30:00 14:00:00 Tyrone Rice [address]202.1.[address] 3.430.2.7 Hospit a .3.026774 l .8 2021-11-02 2021-11-02 Orders White, 1.2.840.1 311833313 244360 9298 Methodi 00:00:00 00:00:00 Only Zayra 53099.1.[address] 3.430.2.7 Hospit a .3.592195 l .8 2021-11-02 2021-11-02 Orders Cabral, 1.2.840.1 380926400 655818 2593 Methodi 00:00:00 00:00:00 Only Shilpan 74236.1.[address] 3.430.2.7 Hospit a .3.364413 l .8 2021-11-02 2021-11-02 Travel 1.2.840.1 1.2.234.788 8706 590493 Methodi 00:00:00 00:00:00 [address] 3.430.2.7 0.2.7.3.698 Ho spita .3.074287 084.8 l .8 2021-11-02 2021-11-02 Orders White, 1.2.840.1 [id number] 680755 1159 Methodi 00:00:00 00:00:00 Only Zayra 82734.1.[address] 3.430.2.7 Hospit a .3.191002 l .8 2021-11-02 2021-11-02 Orders Cabral, 1.2.840.1 005653225 414795 1936 Methodi 00:00:00 00:00:00 Only Shilpan 62422.1.[address] 3.430.2.7 Hospit a .3.094570 l .8 2021-11-02 2021-11-02 Travel 1.2.840.1 1.2.698.506 5030 519158 Methodi 00:00:00 00:00:[address] 3.430.2.7 0.2.7.3.698 Ho spita .3.103522 084.8 l .8 2021-10-30 2021-10-30 Infusion Keiry Cabral 1.2.840.1 358277096 [id number] Methodi 11:00:00 11:30:[address] 3.430.2.7 Hospit a .3.292614 l .8 2021-10-30 2021-10-30 Infusion eKiry Cabral 1.2.840.1 [id number] [id number] Methodi 11:00:00 11:30:[address] 3.430.2.7 Hospit a .3.717923 l .8 2021-10-30 2021-10-30 Travel 1.2.840.1 1.2.704.198 7818 474604 Methodi 00:00:00 00:00:[address] 3.430.2.7 0.2.7.3.698 Ho spita .3.557511 084.8 l .8 2021-10-30 2021-10-30 Travel 1.2.840.1 1.2.885.012 2286 884724 Methodi 00:00:00 00:00:[address] 3.430.2.7 0.2.7.3.698 Ho spita .3.078743 084.8 l .8 2021-10-29 2021-10-29 Office [facility], 1.2.840.1 [id number] 21 [id number] Methodi 14:40:00 14:40:00 Visit Kathleen 63432.1.[address] 3.430.2.7 Hospit a .3.999727 l .8 2021-10-29 2021-10-29 Office [facility], 1.2.840.1 [id number] 21 [id number] Methodi 14:40:00 14:40:00 Visit Kathleen 54563.1.[address] 3.430.2.7 Hospit a .3.258284 l .8 2021-10-29 2021-10-29 Infusion Keiry Cabral 1.2.840.1 024778223 [id number] Methodi 11:30:00 14:00:00 Tyrone Rice 39826.1.[address] 3.430.2.7 Hospit a .3.985541 l .8 2021-10-29 2021-10-29 Infusion Keiry Cabral 1.2.840.1 019465061 9650550337 Methodi 11:30:00 14:00:00 Tyrone Rice 27271.1.[address] 3.430.2.7 Hospit a .3.336565 l .8 2021-10-29 2021-10-29 Telephone Kattegummul 1.2.840.1 605236442 [id number] Methodi 00:00:00 00:00:00 Kenneth hernández 43508.1.[address] 3.430.2.7 Hospit a .3.573860 l .8 2021-10-29 2021-10-29 Orders Samhaileeutty, 1.2.840.1 739126957 2099 369266 Methodi 00:00:00 00:00:00 Only Srinivasan 40418.1.[address] 3.430.2.7 Hospit a .3.744135 l .8 2021-10-29 2021-10-29 Orders White, 1.2.840.1 478252985 427003 0260 Methodi 00:00:00 00:00:00 Only Zayra 14889.1.[address] 3.430.2.7 Hospit a .3.569398 l .8 2021-10-29 2021-10-29 Telephone Kattegummul 1.2.840.1 588590326 [id number] Methodi 00:00:00 00:00:00 Kenneth hernández 64032.1.[address] 3.430.2.7 Hospit a .3.343659 l .8 2021-10-29 2021-10-29 Orders Samkutty, 1.2.840.1 332356524 2099 547349 Methodi 00:00:00 00:00:00 Only Srinivasan 14079.1.[address] 3.430.2.7 Hospit a .3.239656 l .8 2021-10-29 2021-10-29 Orders White, 1.2.840.1 861607059 670913 0621 Methodi 00:00:00 00:00:00 Only Zayra 82279.1.[address] 3.430.2.7 Hospit a .3.383967 l .8 2021-10-28 2021-10-28 Infusion Keiry Cabral 1.2.840.1 087640903 [id number] Methodi 11:30:00 14:00:00 Tyrone Rice 25672.1.[address] 3.430.2.7 Hospit a .3.002407 l .8 2021-10-28 2021-10-28 Infusion Keiry Cabral 1.2.840.1 264031937 5383444265 Methodi 11:30:00 14:00:00 Tyrone Rice 23881.1.[address] 3.430.2.7 Hospit a .3.508722 l .8 2021-10-28 2021-10-28 Travel 1.2.840.1 1.2.100.597 5366 720193 Methodi 00:00:00 00:00:[address] 3.430.2.7 0.2.7.3.698 Ho spita .3.899914 084.8 l .8 2021-10-28 2021-10-28 Travel 1.2.840.1 1.2.097.325 4093 088522 Methodi 00:00:00 00:00:[address] 3.430.2.7 0.2.7.3.698 Ho spita .3.653177 084.8 l .8 2021-10-27 2021-10-27 Infusion Keiry Cabral 1.2.840.1 583856606 8954390115 Methodi 11:30:00 14:00:00 Tyrone Rice [address]2020.1.[address] 3.430.2.7 Hospit a .3.801378 l .8 2021-10-27 2021-10-27 Infusion Keiry Cabral 1.2.840.1 420255147 8425539255 Methodi 11:30:00 14:00:00 Tyrone Rice 17072.1.[address] 3.430.2.7 Hospit a .3.524197 l .8 2021-10-26 2021-10-26 Infusion Kellen Cabralgeorginakarlee 1.2.840.1 888887662 [id number] Methodi 14:00:00 16:30:00 Tyrone Rice 81313.1.[address] 3.430.2.7 Hospit a .3.314350 l .8 2021-10-26 2021-10-26 Infusion Kellen Cabralgeorginakarlee 1.2.840.1 779978361 5738935931 Methodi 14:00:00 16:30:00 Tyrone Rice 18266.1.[address] 3.430.2.7 Hospit a .3.340722 l .8 2021-10-26 2021-10-26 Office Gemma, 1.2.840.1 959441855 64184 96670 Methodi 14:00:00 14:20:00 Visit Tyrone 00438.1.1 967 s t 3.430.2.7 Hospit a .3.003803 l .8 2021-10-26 2021-10-26 Office Gemma, 1.2.840.1 675936387 62991 70171 Methodi 14:00:00 14:20:00 Visit Tyrone 00782.1.1 967 s t 3.430.2.7 Hospit a .3.831075 l .8 2021-10-26 2021-10-26 Orders Pancho, 1.2.840.1 903760551 935718 6788 Methodi 00:00:00 00:00:00 Only Deanna 62482.1.[address] Dynelle 3.430.2.7 Hospit a .3.900574 l .8 2021-10-26 2021-10-26 Orders Joce, Leesa 1.2.840.1 799572763 765 9970491 Methodi 00:00:00 00:00:[address] 3.430.2.7 Hospit a .3.110234 l .8 2021-10-26 2021-10-26 Travel 1.2.840.1 1.2.960.295 5455 074287 Methodi 00:00:00 00:00:[address] 3.430.2.7 0.2.7.3.698 Ho spita .3.105578 084.8 l .8 2021-10-26 2021-10-26 [facility].1 [id number] [id number] Methodi 00:00:00 00:00:[address] 3.430.2.7 Hospit a .3.074833 l .8 2021-10-26 2021-10-26 Orders Pancho, 1.2.840.1 216808597 252361 7747 Methodi 00:00:00 00:00:00 Only Deanna 29238.1.[address] Dynelle 3.430.2.7 Hospit a .3.764576 l .8 2021-10-26 2021-10-26 Orders JoceLeesa villeda 1.2.840.1 422466875 694 4963917 Methodi 00:00:00 00:00:[address] 3.430.2.7 Hospit a .3.786287 l .8 2021-10-26 2021-10-26 Travel 1.2.840.1 1.2.255.117 4816 819236 Methodi 00:00:00 00:00:[address] 3.430.2.7 0.2.7.3.698 Ho spita .3.055760 084.8 l .8 2021-10-26 2021-10-26 Telephone [facility], 1.2.840.1 [id number] Methodi 00:00:00 00:00:[address] 3.430.2.7 Hospit a .3.754087 l .8 2021-10-22 2021-10-22 Telephone Jesse, 1.2.840.1 314493461 2099 Methodi 00:00:00 00:00:[address] 3.430.2.7 Hospit a .3.659240 l .8 2021-10-22 2021-10-22 Orders Lorraine, 1.2.840.1 665191895 12310319 Methodi 00:00:00 00:00:00 Only Srinivasan 42044.1.[address] 3.430.2.7 Hospit a .3.577159 l .8 2021-10-22 2021-10-22 Telephone Jesse, 1.2.840.1 0164821812099 Methodi 00:00:00 00:00:[address] 3.430.2.7 Hospit a .3.342184 l .8 2021-10-22 2021-10-22 Orders Lorranie, 1.2.840.1 9673548712099199 Methodi 00:00:00 00:00:00 Only Srinivasan 72197.1.[address] 3.430.2.7 Hospit a .3.215832 l .8 2021-10-21 2021-10-21 Telemedici Gemma, 1.2.840.1 691459839 22842897 Methodi 11:20:00 11:20:00 ne Tyrone 94220.1.1 763 s t 3.430.2.7 Hospit a .3.521166 l .8 2021-10-21 2021-10-21 Telemedici Gemma, 1.2.840.1 377301948 49555694 Methodi 11:20:00 11:20:00 ne Tyrone 62208.1.1 763 s t 3.430.2.7 Hospit a .3.523700 l .8 2021-10-21 2021-10-21 Orders Khanh, 1.2.840.1 042172072 844461 7326 Methodi 00:00:00 00:00:00 Only Zayra 41864.1.[address] 3.430.2.7 Hospit a .3.818833 l .8 2021-10-21 2021-10-21 Orders Khanh, 1.2.840.1 979261883 366281 7328 Methodi 00:00:00 00:00:00 Only Zayra 46401.1.[address] 3.430.2.7 Hospit a .3.053026 l .8 2021-10-20 2021-10-20 Orders Gemma, 1.2.840.1 078477311 21001 88149 Methodi 00:00:00 00:00:00 Only Tyrone 22327.1.1 211 s t 3.430.2.7 Hospit a .3.914448 l .8 2021-10-20 2021-10-20 Orders Gemma, 1.2.840.1 428378669 24439 Methodi 00:00:00 00:00:00 Only Tyrone 66411.1.1 211 s t 3.430.2.7 Hospit a .3.604728 l .8 2021-10-19 2021-10-19 [facility], 1.2.840.1 041375736 2099 298498 Methodi 00:00:00 00:00:[address] 3.430.2.7 Hospit a .3.752235 l .8 2021-10-19 2021-10-19 Orders White, 1.2.840.1 555682893 713915 5256 Methodi 00:00:00 00:00:00 Only Zayra 08840.1.[address] 3.430.2.7 Hospit a .3.192196 l .8 2021-10-19 2021-10-19 [facility], 1.2.840.1 [id number] 2099 074426 Methodi 00:00:00 00:00:[address] 3.430.2.7 Hospit a .3.636323 l .8 2021-10-19 2021-10-19 Orders White, 1.2.840.1 385445033 927179 6213 Methodi 00:00:00 00:00:00 Only Zayra 26664.1.[address] 3.430.2.7 Hospit a .3.469815 l .8 2021-10-16 2021-10-16 Orders Diannutty, 1.2.840.1 2099755 Methodi 00:00:00 00:00:00 Only Srinivasan 22274.1.[address] 3.430.2.7 Hospit a .3.845408 l .8 2021-10-16 2021-10-16 Orders Lorraine, 1.2.840.1 2099755 Methodi 00:00:00 00:00:00 Only Srinivasan 01888.1.[address] 3.430.2.7 Hospit a .3.964866 l .8 2021-10-15 2021-10-15 Lab Gemma, 1.2.840.1 795267511 33261 Methodi 11:50:00 11:55:00 Tyrone 48965.1.1 310 s t 3.430.2.7 Hospit a .3.898765 l .8 2021-10-15 2021-10-15 Lab Gemma, 1.2.840.1 351028543 85 Methodi 11:50:00 11:55:00 Tyrone 99663.1.1 310 s t 3.430.2.7 Hospit a .3.016265 l .8 2021-10-15 2021-10-15 Procedure 1.2.840.1 175605210 2099013 Methodi 11:00:00 11:20:[address] 3.430.2.7 Hospit a .3.600015 l .8 2021-10-15 2021-10-15 Procedure 1.2.840.1 7908539052099013 Methodi 11:00:00 11:20:[address] 3.430.2.7 Hospit a .3.493393 l .8 2021-10-15 2021-10-15 Lab Gemma, 1.2.840.1 95825828228 Methodi 11:00:00 11:05:00 Tyrone 94705.1.1 596 s t 3.430.2.7 Hospit a .3.739563 l .8 2021-10-15 2021-10-15 Lab Gemma, 1.2.840.1 887878653 29196 54499 Methodi 11:00:00 11:05:00 Tyrone 20258.1.1 596 s t 3.430.2.7 Hospit a .3.428834 l .8 2021-10-15 2021-10-15 Office Gemma, 1.2.840.1 416092953 15 Methodi 10:00:00 10:20:00 Visit Tyrone 37724.1.1 864 s t 3.430.2.7 Hospit a .3.637208 l .8 2021-10-15 2021-10-15 Office Gemma, 1.2.840.1 279696978 Methodi 10:00:00 10:20:00 Visit Tyrone 41062.1.1 864 s t 3.430.2.7 Hospit a .3.071521 l .8 2021-10-15 2021-10-15 Nurse Only Pingali, 1.2.840.1 445516315 07027495 Methodi 09:30:00 10:00:00 Geovanny Zen 49765.1.[address] Alejo 3.430.2.7 Hospit a .3.137899 l .8 2021-10-15 2021-10-15 Nurse Only Pingali, 1.2.840.1 404861152 07372521 Methodi 09:30:00 10:00:00 Geovanny Zen 68029.1.[address] Alejo 3.430.2.7 Hospit a .3.019322 l .8 2021-10-15 2021-10-15 Orders Pilar, 1.2.840.1 539755858 076476 5484 Methodi 00:00:00 00:00:00 Only Naty 65623.1.[address] 3.430.2.7 Hospit a .3.393148 l .8 2021-10-15 2021-10-15 Orders White, 1.2.840.1 221904671 610566 2670 Methodi 00:00:00 00:00:00 Only Zayra 45918.1.[address] 3.430.2.7 Hospit a .3.083574 l .8 2021-10-15 2021-10-15 Travel 1.2.840.1 1.2.522.321 6459 072961 Methodi 00:00:00 00:00:[address] 3.430.2.7 0.2.7.3.698 Ho spita .3.459308 084.8 l .8 2021-10-15 2021-10-15 Orders Pilar, 1.2.840.1 898959531 257547 4414 Methodi 00:00:00 00:00:00 Only Naty 81826.1.[address] 3.430.2.7 Hospit a .3.907546 l .8 2021-10-15 2021-10-15 Orders White, 1.2.840.1 280399035 386880 6638 Methodi 00:00:00 00:00:00 Only Zayra 59376.1.[address] 3.430.2.7 Hospit a .3.103783 l .8 2021-10-15 2021-10-15 Travel 1.2.840.1 1.2.918.770 9961 195577 Methodi 00:00:00 00:00:[address] 3.430.2.7 0.2.7.3.698 Ho spita .3.651798 084.8 l .8 2021-10-05 2021-10-05 [facility], 1.2.840.1 706697884 2 [id number] Methodi 08:03:18 23:59:00 Encounter Kathleen 79332.1.[address] 3.430.2.7 Hospit a .3.511888 l .8 2021-10-05 2021-10-05 [facility], 1.2.840.1 602504142 2 [id number] Methodi 08:03:18 23:59:00 Encounter Kathleen 83294.1.[address] 3.430.2.7 Hospit a .3.543457 l .8 2021-10-05 2021-10-05 Nurse Only Gemma, 1.2.840.1 368902916 13450910 Methodi 11:00:00 11:30:00 Tyrone 15412.1.1 365 s t 3.430.2.7 Hospit a .3.468167 l .8 2021-10-05 2021-10-05 Nurse Only Gemma, 1.2.840.1 140641104 21 85171053 Methodi 11:00:00 11:30:00 Tyrone 02386.1.1 365 s t 3.430.2.7 Hospit a .3.274063 l .8 2021-10-05 2021-10-05 Travel 1.2.840.1 1.2.327.961 9179 739942 Methodi 00:00:00 00:00:[address] 3.430.2.7 0.2.7.3.698 Ho spita .3.611362 084.8 l .8 2021-10-05 2021-10-05 Travel 1.2.840.1 1.2.604.648 5634 079412 Methodi 00:00:00 00:00:[address] 3.430.2.7 0.2.7.3.698 Ho spita .3.699402 084.8 l .8 2021-09-30 2021-09-30 Orders Gemma, 1.2.840.1 344018168 89 Methodi 00:00:00 00:00:00 Only Tyrone 37139.1.1 804 s t 3.430.2.7 Hospit a .3.595931 l .8 2021-09-30 2021-09-30 Orders Gemma, 1.2.840.1 323363499 77650 23976 Methodi 00:00:00 00:00:00 Only Tyrone 79667.1.1 804 s t 3.430.2.7 Hospit a .3.784348 l .8 2021-09-28 2021-09-28 Nurse Only Gemma, 1.2.840.1 114439245 26885244 Methodi 13:30:00 14:00:00 Tyrone 92595.1.1 529 s t 3.430.2.7 Hospit a .3.383226 l .8 2021-09-28 2021-09-28 Nurse Only Gemma, 1.2.840.1 424715386 54460666 Methodi 13:30:00 14:00:00 Tyrone 88947.1.1 529 s t 3.430.2.7 Hospit a .3.630751 l .8 2021-09-28 2021-09-28 Travel 1.2.840.1 1.2.200.583 8189 509097 Methodi 00:00:00 00:00:[address] 3.430.2.7 0.2.7.3.698 Ho spita .3.241059 084.8 l .8 2021-09-28 2021-09-28 Travel 1.2.840.1 1.2.157.832 3264 234715 Methodi 00:00:00 00:00:[address] 3.430.2.7 0.2.7.3.698 Ho spita .3.861128 084.8 l .8 2021-09-24 2021-09-24 [facility] [id number] [place] 00:00:00 00:00:00 KATHLEEN [address] 2021-09-21 2021-09-21 Nurse Only Gemma, 1.2.840.1 647037969 68253252 Methodi 14:00:00 14:30:00 Tyrone 02442.1.1 439 s t 3.430.2.7 Hospit a .3.530827 l .8 2021-09-21 2021-09-21 Nurse Only Gemma, 1.2.840.1 517925419 21 [id number] Methodi 14:00:00 14:30:00 Tyrone 77042.1.1 439 s t 3.430.2.7 Hospit a .3.450990 l .8 2021-09-21 2021-09-21 Office Gemma, 1.2.840.1 057655290 Methodi 13:20:00 13:40:00 Visit Tyrone 54042.1.1 430 s t 3.430.2.7 Hospit a .3.260306 l .8 2021-09-21 2021-09-21 Office Gemma, 1.2.840.1 197800949 Methodi 13:20:00 13:40:00 Visit Tyrone 63791.1.1 430 s t 3.430.2.7 Hospit a .3.869988 l .8 2021-09-21 2021-09-21 Orders White, 1.2.840.1 146789145 151264 4317 Methodi 00:00:00 00:00:00 Only Zayra 05489.1.[address] 3.430.2.7 Hospit a .3.667422 l .8 2021-09-21 2021-09-21 Travel 1.2.840.1 1.2.010.724 6746 457025 Methodi 00:00:00 00:00:[address] 3.430.2.7 0.2.7.3.698 Ho spita .3.175616 084.8 l .8 2021-09-21 2021-09-21 Orders White, 1.2.840.1 845125904 946938 2238 Methodi 00:00:00 00:00:00 Only Zayra 03839.1.[address] 3.430.2.7 Hospit a .3.989108 l .8 2021-09-21 2021-09-21 Travel 1.2.840.1 1.2.810.243 2280 962856 Methodi 00:00:00 00:00:[address] 3.430.2.7 0.2.7.3.698 Ho spita .3.190328 084.8 l .8 2021-09-16 2021-09-16 Refill Gemma, 1.2.840.1 299429841 Methodi 00:00:00 00:00:00 Tyrone 16643.1.1 463 s t 3.430.2.7 Hospit a .3.028320 l .8 2021-09-16 2021-09-16 Refill Gemma, 1.2.840.1 Methodi 00:00:00 00:00:00 Tyrone 00432.1.1 463 s t 3.430.2.7 Hospit a .3.657892 l .8 2021-09-15 2021-09-15 Nurse Only Darcourt, 1.2.840.1 661368041 2 [id number] Methodi 11:00:00 11:30:[address] [place] 3.430.2.7 Hospit a .3.102831 l .8 2021-09-15 2021-09-15 Nurse Only Darcourt, 1.2.840.1 973041085 2 [id number] Methodi 11:00:00 11:30:[address] [place] 3.430.2.7 Hospit a .3.810762 l .8 2021-09-15 2021-09-15 Travel 1.2.840.1 1.2.212.601 8402 012876 Methodi 00:00:00 00:00:[address] 3.430.2.7 0.2.7.3.698 Ho spita .3.485920 084.8 l .8 2021-09-15 2021-09-15 Travel 1.2.840.1 1.2.515.023 3731 602470 Methodi 00:00:00 00:00:[address] 3.430.2.7 0.2.7.3.698 Ho spita .3.409428 084.8 l .8 2021-09-08 2021-09-08 Infusion Keiry Cabral 1.2.840.1 2099119074 Methodi 13:30:00 16:00:00 Tyrone Rice 87188.1.[address] 3.430.2.7 Hospit a .3.431403 l .8 2021-09-08 2021-09-08 Infusion Keiry Cabral 1.2.840.1 227362552 6677154732 Methodi 13:30:00 16:00:00 Tyrone Rice 57287.1.[address] 3.430.2.7 Hospit a .3.760177 l .8 2021-09-08 2021-09-08 Orders White, 1.2.840.1 65617452220990712 Methodi 00:00:00 00:00:00 Only Zayra 07316.1.[address] 3.430.2.7 Hospit a .3.993255 l .8 2021-09-08 2021-09-08 Orders Tatiana, 1.2.840.1 130858781 Methodi 00:00:00 00:00:00 Only Mercedes 60703.1.[address] 3.430.2.7 Hospit a .3.045387 l .8 2021-09-08 2021-09-08 Travel 1.2.840.1 1.2.989.322 9422 120131 Methodi 00:00:00 00:00:[address] 3.430.2.7 0.2.7.3.698 Ho spita .3.211347 084.8 l .8 2021-09-08 2021-09-08 Orders White, 1.2.840.1 20990712 0151 Methodi 00:00:00 00:00:00 Only Zayra 01847.1.[address] 3.430.2.7 Hospit a .3.157840 l .8 2021-09-08 2021-09-08 Orders Tatiana, 1.2.840.1 Methodi 00:00:00 00:00:00 Only Mercedes 48460.1.[address] 3.430.2.7 Hospit a .3.868112 l .8 2021-09-08 2021-09-08 Travel 1.2.840.1 1.2.759.337 9060 428316 Methodi 00:00:00 00:00:[address] 3.430.2.7 0.2.7.3.698 Ho spita .3.613499 084.8 l .8 2021-09-07 2021-09-07 Office Gemma, 1.2.840.1 477337234 21001 87327 Methodi 14:20:00 14:40:00 Visit Tyrone 42961.1.1 408 s t 3.430.2.7 Hospit a .3.505968 l .8 2021-09-07 2021-09-07 Office Gemma, 1.2.840.1 42251 Methodi 14:20:00 14:40:00 Visit Tyrone 98578.1.1 408 s t 3.430.2.7 Hospit a .3.755475 l .8 2021-09-07 2021-09-07 Infusion eKiry Cabral 1.2.840.1 259253997 [id number] Methodi 11:15:00 13:45:00 Gemma, Tyrone 72288.1.[address] 3.430.2.7 Hospit a .3.252590 l .8 2021-09-072021-09-07 Infusion Keiry Cabral 1.2.840.1 572870556 [id number] Methodi 11:15:00 13:45:00 Tyrone Rice 12002.1.[address] 3.430.2.7 Hospit a .3.999509 l .8 2021-09-07 2021-09-07 Travel 1.2.840.1 1.2.703.277 9999 120008 Methodi 00:00:00 00:00:[address] 3.430.2.7 0.2.7.3.698 Ho spita .3.810587 084.8 l .8 2021-09-07 2021-09-07 Travel 1.2.840.1 1.2.649.178 9935 120008 Methodi 00:00:00 00:00:[address] 3.430.2.7 0.2.7.3.698 Ho spita .3.897869 084.8 l .8 2021-09-04 2021-09-04 Infusion Keiry Cabral 1.2.840.1 [id number] [id number] Methodi 12:45:00 15:15:00 Tyrone Rice 52920.1.[address] 3.430.2.7 Hospit a .3.029805 l .8 2021-09-04 2021-09-04 Infusion Keiry [facility]ral 1.2.840.1 392211951 [id number] Methodi 12:45:00 15:15:00 Tyrone Rice 32526.1.[address] 3.430.2.7 Hospit a .3.020346 l .8 2021-09-04 2021-09-04 Travel 1.2.840.1 1.2.108.537 2788 383609 Methodi 00:00:00 00:00:[address] 3.430.2.7 0.2.7.3.698 Ho spita .3.739649 084.8 l .8 2021-09-04 2021-09-04 Travel 1.2.840.1 1.2.263.245 1502 585876 Methodi 00:00:00 00:00:[address] 3.430.2.7 0.2.7.3.698 Ho spita .3.405983 084.8 l .8 2021-09-03 2021-09-03 Infusion Keiry Cabral 1.2.840.1 397625425 [id number] Methodi 10:15:00 12:45:00 Tyrone Rice 31903.1.[address] 3.430.2.7 Hospit a .3.988337 l .8 2021-09-03 2021-09-03 Infusion Keiry Cabral 1.2.840.1 145295366 [id number] Methodi 10:15:00 12:45:00 Tyrone Rice 99592.1.[address] 3.430.2.7 Hospit a .3.400320 l .8 2021-09-02 2021-09-02 Infusion Keiry Cabral 1.2.840.1 344859854 [id number] Methodi 13:30:00 16:00:00 Tyrone Rice 40153.1.[address] 3.430.2.7 Hospit a .3.294511 l .8 2021-09-02 2021-09-02 Infusion Keiry Cabral 1.2.840.1 519019803 [id number] Methodi 13:30:00 16:00:00 Tyrone Rice 66008.1.[address] 3.430.2.7 Hospit a .3.271522 l .8 2021-09-02 2021-09-02 Travel 1.2.840.1 1.2.746.043 1463 273128 Methodi 00:00:00 00:00:[address] 3.430.2.7 0.2.7.3.698 Ho spita .3.083290 084.8 l .8 2021-09-02 2021-09-02 Travel 1.2.840.1 1.2.364.839 1790 354569 Methodi 00:00:00 00:00:[address] 3.430.2.7 0.2.7.3.698 Ho spita .3.785667 084.8 l .8 2021 2021 Infusion Keiry Cabral 1.2.840.1 298384259 [id number] Methodi 13:15:00 15:45:00 Tyrone Rice 41128.1.[address] 3.430.2.7 Hospit a .3.903774 l .8 2021 2021 Infusion Keiry Cabral 1.2.840.1 761001917 1591888901 Methodi 13:15:00 15:45:00 Tyrone Rice 76906.1.[address] 3.430.2.7 Hospit a .3.723638 l .8 2021 2021 Travel 1.2.840.1 1.2.488.200 7207 051770 Methodi 00:00:00 00:00:[address] 3.430.2.7 0.2.7.3.698 Ho spita .3.210578 084.8 l .8 2021 2021 Travel 1.2.840.1 1.2.969.259 5048 401326 Methodi 00:00:00 00:00:[address] 3.430.2.7 0.2.7.3.698 Ho spita .3.094986 084.8 l .8 2021-08-31 2021-08-31 Infusion Keiry Cabral 1.2.840.1 316819568 [id number] Methodi 12:45:00 15:15:00 Tyrone Rice 64539.1.[address] 3.430.2.7 Hospit a .3.955980 l .8 2021-08-31 2021-08-31 Infusion Keiry Cabral 1.2.840.1 779070616 [id number] Methodi 12:45:00 15:15:00 Tyrone Rice 18874.1.[address] 3.430.2.7 Hospit a .3.161088 l .8 2021-08-31 2021-08-31 Orders White, 1.2.840.1 135696900 631437 7598 Methodi 00:00:00 00:00:00 Only Zayra 03227.1.[address] 3.430.2.7 Hospit a .3.634541 l .8 2021-08-31 2021-08-31 Travel 1.2.840.1 1.2.484.341 8284 999809 Methodi 00:00:00 00:00:[address] 3.430.2.7 0.2.7.3.698 Ho spita .3.505019 084.8 l .8 2021-08-31 2021-08-31 Orders White, 1.2.840.1 695534987 260503 9705 Methodi 00:00:00 00:00:00 Only Zayra 78482.1.[address] 3.430.2.7 Hospit a .3.866433 l .8 2021-08-31 2021-08-31 Travel 1.2.840.1 1.2.925.979 8086 995404 Methodi 00:00:00 00:00:[address] 3.430.2.7 0.2.7.3.698 Ho spita .3.000755 084.8 l .8 2021-08-24 2021-08-24 Infusion Keiry Cabral 1.2.840.1 815364631 [id number] Methodi 13:15:00 15:45:00 Tyrone Rice 51170.1.[address] 3.430.2.7 Hospit a .3.258250 l .8 2021-08-24 2021-08-24 Infusion Keiry Cabral 1.2.840.1 688986080 2424080856 Methodi 13:15:00 15:45:00 Tyrone Rice 52250.1.[address] 3.430.2.7 Hospit a .3.236442 l .8 2021-08-24 2021-08-24 Office Gemma, 1.2.840.1 713661560 40179 Methodi 13:20:00 13:25:11 Visit Tyrone 20043.1.1 212 s t 3.430.2.7 Hospit a .3.704143 l .8 2021-08-24 2021-08-24 Office Gemma, 1.2.840.1 078894256 48676 Methodi 13:20:00 13:25:11 Visit Tyrone 16537.1.1 212 s t 3.430.2.7 Hospit a .3.360068 l .8 2021-08-24 2021-08-24 Telephone Tarah 1.2.840.1 345932095 [id number] Methodi 00:00:00 00:00:00 Kenneth hernández 91100.1.[address] 3.430.2.7 Hospit a .3.941041 l .8 2021-08-24 2021-08-24 Orders Tenzin, 1.2.840.1 886104699 193736 3737 Methodi 00:00:00 00:00:00 Only Josias 70979.1.[address] 3.430.2.7 Hospit a .3.040434 l .8 2021-08-24 2021-08-24 Orders Wally, 1.2.840.1 943968843 129116 9571 Methodi 00:00:00 00:00:00 Only Sherryprasanna 73890.1.1 423 s t 3.430.2.7 Hospit a .3.006873 l .8 2021-08-24 2021-08-24 Orders Tenzin, 1.2.840.1 560290109 030875 2913 Methodi 00:00:00 00:00:00 Only Josias 59860.1.[address] 3.430.2.7 Hospit a .3.888019 l .8 2021-08-24 2021-08-24 Travel 1.2.840.1 1.2.041.421 9214 259716 Methodi 00:00:00 00:00:[address] 3.430.2.7 0.2.7.3.698 Ho spita .3.725746 084.8 l .8 2021-08-24 2021-08-24 Telephone Chantalrafaela 1.2.840.1 278049528 [id number] Methodi 00:00:00 00:00:00 Kenneth hernández 45130.1.[address] 3.430.2.7 Hospit a .3.489135 l .8 2021-08-24 2021-08-24 Orders Tenzin, 1.2.840.1 397964281 437734 8825 Methodi 00:00:00 00:00:00 Only Josias 76997.1.[address] 3.430.2.7 Hospit a .3.372621 l .8 2021-08-24 2021-08-24 Orders Wally, 1.2.840.1 167137504 354908 8717 Methodi 00:00:00 00:00:00 Only Rohith 23672.1.1 423 s t 3.430.2.7 Hospit a .3.276334 l .8 2021-08-24 2021-08-24 Orders Tenzin, 1.2.840.1 131167363 771546 0552 Methodi 00:00:00 00:00:00 Only Josias 56711.1.[address] 3.430.2.7 Hospit a .3.376057 l .8 2021-08-24 2021-08-24 Travel 1.2.840.1 1.2.361.668 9135 630531 Methodi 00:00:00 00:00:[address] 3.430.2.7 0.2.7.3.698 Ho spita .3.549175 084.8 l .8 2021-08-20 2021-08-20 [facility], 1.2.840.1 418648010 748 3692364 Methodi 00:00:00 00:00:00 Tyrone 92538.1.1 132 s t 3.430.2.7 Hospit a .3.600604 l .8 2021-08-20 2021-08-20 [facility], 1.2.840.1 503217843 106 [id number] Methodi 00:00:00 00:00:00 Tyrone 30588.1.1 132 s t 3.430.2.7 Hospit a .3.595241 l .8 2021-08-18 2021-08-18 Orders Aza, 1.2.840.1 276081531 480009 3550 Methodi 00:00:00 00:00:00 Only Celestine 07118.1.[address] 3.430.2.7 Hospit a .3.074558 l .8 2021-08-18 2021-08-18 Orders Azali, 1.2.840.1 789921900 769264 9286 Methodi 00:00:00 00:00:00 Only Celestine 49369.1.[address] 3.430.2.7 Hospit a .3.038760 l .8 2021-08-17 2021-08-17 [facility], 1.2.840.1 439106898 783 1752138 Methodi 13:00:00 23:59:00 Encounter Cyndy 39337.1.[address] [place] 3.430.2.7 Hospit a .3.903902 l .8 2021-08-17 2021-08-17 [facility], 1.2.840.1 [id number] 2099 344579 Methodi 08:46:34 12:59:00 Encounter Tyrone [address]22.1.[address] 3.430.2.7 Hospit a .3.237927 l .8 2021-08-17 2021-08-17 [facility] 1.2.840.1 [id number] 2099 357678 Methodi 08:46:34 12:59:00 Encounter Tyrone 86227.1.[address] 3.430.2.7 Hospit a .3.918054 l .8 2021-08-17 2021-08-17 Travel 1.2.840.1 1.2.754.585 2618 437200 Methodi 00:00:00 00:00:[address] 3.430.2.7 0.2.7.3.698 Ho spita .3.486819 084.8 l .8 2021-08-17 2021-08-17 [facility] 1.2.840.1 [id number] 201 [id number] [place] 00:00:00 00:00:00 Encounter CYNDY 26651.1.1 [address] .3.659264 .8 2021-08-17 2021-08-17 Travel 1.2.840.1 1.2.034.491 4250 700849 Methodi 00:00:00 00:00:[address] 3.430.2.7 0.2.7.3.698 Ho spita .3.405722 084.8 l .8 2021-08-13 2021-08-13 Travel 1.2.840.1 1.2.703.998 1601 516576 Methodi 00:00:00 00:00:[address] 3.430.2.7 0.2.7.3.698 Ho spita .3.444789 084.8 l .8 2021-08-13 2021-08-13 Telephone [facility], 1.2.840.1 [id number] 405 3869197 Methodi 00:00:00 00:00:[address] 3.430.2.7 Hospit a .3.556040 l .8 2021-08-13 2021-08-13 Travel 1.2.840.1 1.2.028.248 4753 728949 Methodi 00:00:00 00:00:[address] 3.430.2.7 0.2.7.3.698 Ho spita .3.664328 084.8 l .8 2021-08-13 2021-08-13 Telephone Mislang, 1.2.840.1 [id number] 401 [id number] Methodi 00:00:00 00:00:[address] 3.430.2.7 Hospit a .3.953803 l .8 2021-08-12 2021-08-12 Nurse Only Gemma, 1.2.840.1 [id number] 21 [id number] Methodi 11:00:00 11:30:00 Tyrone 44646.1.1 721 s t 3.430.2.7 Hospit a .3.878868 l .8 2021-08-12 2021-08-12 Nurse Only Gemma, 1.2.840.1 [id number] 39282489 Methodi 11:00:00 11:30:00 Tyrone 29674.1.1 721 s t 3.430.2.7 Hospit a .3.792281 l .8 2021-08-12 2021-08-12 Travel 1.2.840.1 1.2.629.922 6003 121655 Methodi 00:00:00 00:00:[address] 3.430.2.7 0.2.7.3.698 Ho spita .3.797900 084.8 l .8 2021-08-12 2021-08-12 Travel 1.2.840.1 1.2.830.942 6965 130301 Methodi 00:00:00 00:00:[address] 3.430.2.7 0.2.7.3.698 Ho spita .3.599914 084.8 l .8 2021-08-10 2021-08-10 Orders Tenzin, 1.2.840.1 498573482 530547 5149 Methodi 00:00:00 00:00:00 Only Josias 84005.1.[address] 3.430.2.7 Hospit a .3.191712 l .8 2021-08-10 2021-08-10 Refill Gemma, 1.2.840.1 9754520351 02010 Methodi 00:00:00 00:00:00 Tyrone 31763.1.1 471 s t 3.430.2.7 Hospit a .3.183677 l .8 2021-08-10 2021-08-10 Orders Tenzin, 1.2.840.1 237934469 838609 5180 Methodi 00:00:00 00:00:00 Only Josias 34347.1.[address] 3.430.2.7 Hospit a .3.570296 l .8 2021-08-10 2021-08-10 Refill Gemma, 1.2.840.1 966713147 21001 13927 Methodi 00:00:00 00:00:00 Tyrone 28184.1.1 471 s t 3.430.2.7 Hospit a .3.900093 l .8 2021-08-05 2021-08-05 Office Gemma, 1.2.840.1 522149163 71150 Methodi 14:00:00 14:20:00 Visit Tyrone 35077.1.1 603 s t 3.430.2.7 Hospit a .3.513608 l .8 2021-08-05 2021-08-05 Office Gemma, 1.2.840.1 62120 Methodi 14:00:00 14:20:00 Visit Tyrone 73739.1.1 603 s t 3.430.2.7 Hospit a .3.626672 l .8 2021-08-05 2021-08-05 Lab Gemma, 1.2.840.1 829856626 14 Methodi 13:00:00 13:05:00 Tyrone 16450.1.1 305 s t 3.430.2.7 Hospit a .3.115376 l .8 2021-08-05 2021-08-05 Lab Gemma, 1.2.840.1 454500281 14 Methodi 13:00:00 13:05:00 Tyrone 46018.1.1 305 s t 3.430.2.7 Hospit a .3.394775 l .8 2021-08-05 2021-08-05 Office Carlos, 1.2.840.1 724621556 21 11648039 Methodi 11:00:00 12:13:19 Visit Kathleen 21291.1.[address] 3.430.2.7 Hospit a .3.004651 l .8 2021-08-05 2021-08-05 Office Micheletarena, 1.2.840.1 888836383 21 58953019 Methodi 11:00:00 12:13:19 Visit Kathleen 65256.1.[address] 3.430.2.7 Hospit a .3.746262 l .8 2021-08-05 2021-08-05 Lab Carlos, 1.2.840.1 548537283 21 09726301 Methodi 12:05:00 12:10:[address] 3.430.2.7 Hospit a .3.911896 l .8 2021-08-05 2021-08-05 Lab Danettethinikki, 1.2.840.1 434791739 21 92154036 Methodi 12:05:00 12:10:[address] 3.430.2.7 Hospit a .3.236777 l .8 2021-08-05 2021-08-05 Lab Micheletathiou, 1.2.840.1 506501903 21 98013630 Methodi 12:00:00 12:05:[address] 3.430.2.7 Hospit a .3.280324 l .8 2021-08-05 2021-08-05 Lab Efstathiou, 1.2.840.1 101195309 32327020 Methodi 12:00:00 12:05:[address] 3.430.2.7 Hospit a .3.916186 l .8 2021-08-05 2021-08-05 Orders Gemma, 1.2.840.1 868841569 42 Methodi 00:00:00 00:00:00 Only Tyrone 56581.1.1 531 s t 3.430.2.7 Hospit a .3.234399 l .8 2021-08-05 2021-08-05 Orders Jesse, 1.2.840.1 304078073 398552 0401 Methodi 00:00:00 00:00:00 Only Chemetra 06829.1.[address] 3.430.2.7 Hospit a .3.228960 l .8 2021-08-05 2021-08-05 Travel 1.2.840.1 1.2.624.918 8514 290909 Methodi 00:00:00 00:00:[address] 3.430.2.7 0.2.7.3.698 Ho spita .3.902549 084.8 l .8 2021-08-05 2021-08-05 Orders Gemma, 1.2.840.1 025456957 54652 97283 Methodi 00:00:00 00:00:00 Only Tyrone 08938.1.1 531 s t 3.430.2.7 Hospit a .3.801696 l .8 2021-08-05 2021-08-05 Orders Jesse, 1.2.840.1 545961108 343488 0612 Methodi 00:00:00 00:00:00 Only Chemetra 09849.1.[address] 3.430.2.7 Hospit a .3.749824 l .8 2021-08-05 2021-08-05 Travel 1.2.840.1 1.2.121.911 0580 763937 Methodi 00:00:00 00:00:[address] 3.430.2.7 0.2.7.3.698 Ho spita .3.926376 084.8 l .8 2021-08-04 2021-08-04 Documentat Analia, 1.2.840.1 032048277 269 1110601 Methodi 00:00:00 00:00:00 ion Joronaldeon 97835.1.[address] 3.430.2.7 Hospit a .3.930197 l .8 2021-08-04 2021-08-04 Documentat Analia, 1.2.840.1 124741731 935 1764376 Methodi 00:00:00 00:00:00 [address]annyeon 29723.1.[address] 3.430.2.7 Hospit a .3.232996 l .8 2021-07-30 2021-07-30 Travel 1.2.840.1 1.2.065.232 7981 747455 Methodi 00:00:00 00:00:[address] 3.430.2.7 0.2.7.3.698 Ho spita .3.942855 084.8 l .8 2021-07-30 2021-07-30 Travel 1.2.840.1 1.2.675.292 8453 029028 Methodi 00:00:00 00:00:[address] 3.430.2.7 0.2.7.3.698 Ho spita .3.456010 084.8 l .8 2021-07-29 2021-07-29 Telemedici Gemma, 1.2.840.1 684166324 21 20377129 Methodi 13:40:00 15:13:17 ne Tyrone 88954.1.1 187 s t 3.430.2.7 Hospit a .3.982968 l .8 2021-07-29 2021-07-29 Telemedici Gemma, 1.2.840.1 966160553 21 86439736 Methodi 13:40:00 15:13:17 ne Tyrone 12229.1.1 187 s t 3.430.2.7 Hospit a .3.499166 l .8 2021-07-29 2021-07-29 Orders Tenzin, 1.2.840.1 268488792 150544 4450 Methodi 00:00:00 00:00:00 Only Josias 76608.1.[address] 3.430.2.7 Hospit a .3.338267 l .8 2021-07-29 2021-07-29 Orders Tenzin, 1.2.840.1 057501476 011947 6677 Methodi 00:00:00 00:00:00 Only Josias 83646.1.[address] 3.430.2.7 Hospit a .3.215338 l .8 2021-07-29 2021-07-29 Orders Tenzin, 1.2.840.1 512348124 377782 6019 Methodi 00:00:00 00:00:00 Only Josias 41922.1.[address] 3.430.2.7 Hospit a .3.930382 l .8 2021-07-29 2021-07-29 Orders Tenzin, 1.2.840.1 907797017 490202 5008 Methodi 00:00:00 00:00:00 Only Josias 31727.1.[address] 3.430.2.7 Hospit a .3.149193 l .8 2021-07-29 2021-07-29 Orders Tenzin, 1.2.840.1 140208272 218121 0965 Methodi 00:00:00 00:00:00 Only Josias 33058.1.[address] 3.430.2.7 Hospit a .3.547919 l .8 2021-07-29 2021-07-[address] [facility], 1.2.840.1 199659319 523918 0360 Methodi 00:00:00 00:00:00 Only Josias 49359.1.[address] 3.430.2.7 Hospit a .3.516837 l .8 2021-07-28 2021-07-28 [facility], 1.2.840.1 078642288 2099 032414 Methodi 09:45:11 23:59:00 Encounter Tyrone 49321.1.[address] 3.430.2.7 Hospit a .3.902148 l .8 2021-07-28 2021-07-28 [facility], 1.2.840.1 863602612 2099 582566 Methodi 09:45:11 23:59:00 Encounter Tyrone 96710.1.[address] 3.430.2.7 Hospit a .3.454322 l .8 2021-07-28 2021-07-28 Infusion Keiry Cabral 1.2.840.1 347892730 0014671619 Methodi 13:30:00 16:00:00 Tyrone Rice [address]3334.1.[address] 3.430.2.7 Hospit a .3.309628 l .8 2021-07-28 2021-07-28 Infusion Keiry Cabral 1.2.840.1 514139246 5794246733 Methodi 13:30:00 16:00:00 Tyrone Rice 95362.1.[address] 3.430.2.7 Hospit a .3.233738 l .8 2021-07-27 2021-07-27 Office [facility], 1.2.840.1 059752102 67096 Methodi 13:00:00 13:20:00 Visit Tyrone 47973.1.1 551 s t 3.430.2.7 Hospit a .3.742942 l .8 2021-07-27 2021-07-27 Office [facility], 1.2.840.1 983997180 21001 36444 Methodi 13:00:00 13:20:00 Visit Tyrone 85191.1.1 551 s t 3.430.2.7 Hospit a .3.944829 l .8 2021-07-27 2021-07-27 Infusion Kellen Cabralgeorginakarlee 1.2.840.1 526819730 6077392687 Methodi 09:00:00 11:30:00 [address]Trone Rice 63547.1.[address] 3.430.2.7 Hospit a .3.929306 l .8 2021-07-27 2021-07-27 Infusion Marianna Keiry 1.2.840.1 906966434 2240250269 Methodi 09:00:00 11:30:00 Tyrone Rice 14105.1.[address] 3.430.2.7 Hospit a .3.272436 l .8 2021-07-27 2021-07-27 Orders Tenzin, 1.2.840.1 354153785 013603 9987 Methodi 00:00:00 00:00:00 Only Josias 57094.1.[address] 3.430.2.7 Hospit a .3.839376 l .8 2021-07-27 2021-07-27 Orders Tatiana, 1.2.840.1 986195606 60495 70330 Methodi 00:00:00 00:00:00 Only Mercedes 06547.1.[address] 3.430.2.7 Hospit a .3.847260 l .8 2021-07-27 2021-07-27 Orders Tenzin, 1.2.840.1 781892514 772815 3280 Methodi 00:00:00 00:00:00 Only Josias [address]1024.1.[address] 3.430.2.7 Hospit a .3.099858 l .8 2021-07-27 2021-07-27 Orders Blessingu, 1.2.840.1 327221817 934102 8470 Methodi 00:00:00 00:00:00 Only Rohith 64527.1.1 016 s t 3.430.2.7 Hospit a .3.463361 l .8 2021-07-27 2021-07-27 Orders Tenzin, 1.2.840.1 403580985 070579 6216 Methodi 00:00:00 00:00:00 Only Josias 01371.1.[address] 3.430.2.7 Hospit a .3.305704 l .8 2021-07-27 2021-07-27 Travel 1.2.840.1 1.2.991.411 9077 464105 Methodi 00:00:00 00:00:[address] 3.430.2.7 0.2.7.3.698 Ho spita .3.870180 084.8 l .8 2021-07-27 2021-07-27 Orders Tenzin, 1.2.840.1 781215904 534852 3477 Methodi 00:00:00 00:00:00 Only Josias 68573.1.[address] 3.430.2.7 Hospit a .3.705512 l .8 2021-07-27 2021-07-27 Orders Tatiana, 1.2.840.1 507918473 92247 69010 Methodi 00:00:00 00:00:00 Only Mercedes 92218.1.[address] 3.430.2.7 Hospit a .3.200835 l .8 2021-07-27 2021-07-27 Orders Tenzin, 1.2.840.1 319484617 659493 2055 Methodi 00:00:00 00:00:00 Only Josias 15968.1.[address] 3.430.2.7 Hospit a .3.548147 l .8 2021-07-27 2021-07-27 Orders Jacquelynoru, 1.2.840.1 557568848 854589 4497 Methodi 00:00:00 00:00:00 Only Rohith 47925.1.1 016 s t 3.430.2.7 Hospit a .3.547749 l .8 2021-07-27 2021-07-27 Orders Tenzin, 1.2.840.1 617439881 041059 1319 Methodi 00:00:00 00:00:00 Only Josias 65875.1.[address] 3.430.2.7 Hospit a .3.185433 l .8 2021-07-27 2021-07-27 Travel 1.2.840.1 1.2.297.276 7440 925804 Methodi 00:00:00 00:00:[address] 3.430.2.7 0.2.7.3.698 Ho spita .3.616198 084.8 l .8 2021-07-24 2021-07-24 Infusion Keiry Cabral 1.2.840.1 954026436 9225403973 Methodi 13:15:00 15:45:00 Tyrone Rice 74009.1.[address] 3.430.2.7 Hospit a .3.460242 l .8 2021-07-24 2021-07-24 Infusion Keiry Cabral 1.2.840.1 470768099 7006700217 Methodi 13:15:00 15:45:00 Tyrone Rice 97523.1.[address] 3.430.2.7 Hospit a .3.948557 l .8 2021-07-24 2021-07-24 Travel 1.2.840.1 1.2.892.659 1658 414857 Methodi 00:00:00 00:00:[address] 3.430.2.7 0.2.7.3.698 Ho spita .3.277620 084.8 l .8 2021-07-24 2021-07-24 Orders Tenzin, 1.2.840.1 538053925 198612 4855 Methodi 00:00:00 00:00:00 Only Josias 21431.1.[address] 3.430.2.7 Hospit a .3.303796 l .8 2021-07-24 2021-07-24 Travel 1.2.840.1 1.2.527.580 5363 887025 Methodi 00:00:00 00:00:[address] 3.430.2.7 0.2.7.3.698 Ho spita .3.623029 084.8 l .8 2021-07-24 2021-07-24 [facility] Tenzin, 1.2.840.1 378485885 017922 3449 Methodi 00:00:00 00:00:00 Only Josias 69510.1.[address] 3.430.2.7 Hospit a .3.377701 l .8 2021-07-23 2021-07-23 Infusion Keiry Cabral 1.2.840.1 964641708 5565512161 Methodi 10:15:00 12:45:00 Tyrone Rice 26493.1.[address] 3.430.2.7 Hospit a .3.969326 l .8 2021-07-23 2021-07-23 Infusion Keiry Cabral 1.2.840.1 404471331 1943361189 Methodi 10:15:00 12:45:00 Tyrone Rice 05678.1.[address] 3.430.2.7 Hospit a .3.957302 l .8 2021-07-22 2021-07-22 Infusion Keiry Cabral 1.2.840.1 655798812 1213741256 Methodi 12:30:00 15:00:[address].1.[address] 3.430.2.7 Hospit a .3.037261 l .8 2021-07-22 2021-07-22 Infusion Keiry Cabral 1.2.840.1 437534304 9071401111 Methodi 12:30:00 15:00:[address].1.[address] 3.430.2.7 Hospit a .3.707281 l .8 2021-07-22 2021-07-22 Office Gemma, 1.2.840.1 533965576 01623 23948 Methodi 14:00:00 14:20:00 Visit Tyrone 76540.1.1 258 s t 3.430.2.7 Hospit a .3.597595 l .8 2021-07-22 2021-07-22 Office Gemma, 1.2.840.1 739054120 38994 Methodi 14:00:00 14:20:00 Visit Tyrone 08228.1.1 258 s t 3.430.2.7 Hospit a .3.493022 l .8 2021-07-22 2021-07-22 Travel 1.2.840.1 1.2.203.561 2826 046538 Methodi 00:00:00 00:00:[address] 3.430.2.7 0.2.7.3.698 Ho spita .3.931831 084.8 l .8 2021-07-22 2021-07-22 Travel 1.2.840.1 1.2.835.832 2684 662747 Methodi 00:00:00 00:00:[address] 3.430.2.7 0.2.7.3.698 Ho spita .3.859920 084.8 l .8 2021-07-21 2021-07-21 Infusion Keiry Cabral 1.2.840.1 535120048 1989047727 Methodi 12:30:00 15:00:00 Tyrone Rice 63862.1.[address] 3.430.2.7 Hospit a .3.267106 l .8 2021-07-21 2021-07-21 Infusion Keiry Cabral 1.2.840.1 920061977 8376745569 Methodi 12:30:00 15:00:00 Tyrone Rice 28050.1.[address] 3.430.2.7 Hospit a .3.585694 l .8 2021-07-20 2021-07-20 Infusion Keiry Cabral 1.2.840.1 295758867 1956945584 Methodi 11:30:00 14:00:00 Tyrone Rice 76530.1.[address] 3.430.2.7 Hospit a .3.498129 l .8 2021-07-20 2021-07-20 Infusion Keiry Cabral 1.2.840.1 129800217 4058398548 Methodi 11:30:00 14:00:00 Tyrone Rice 15984.1.[address] 3.430.2.7 Hospit a .3.906611 l .8 2021-07-20 2021-07-20 Orders Tenzin, 1.2.840.1 956559194 901311 3430 Methodi 00:00:00 00:00:00 Only Josias 67578.1.[address] 3.430.2.7 Hospit a .3.519262 l .8 2021-07-20 2021-07-20 Travel 1.2.840.1 1.2.675.949 3203 703118 Methodi 00:00:00 00:00:[address] 3.430.2.7 0.2.7.3.698 Ho spita .3.981389 084.8 l .8 2021-07-20 2021-07-20 Orders Tenzin, 1.2.840.1 709004751 914057 8373 Methodi 00:00:00 00:00:00 Only Josias 79649.1.[address] 3.430.2.7 Hospit a .3.121437 l .8 2021-07-20 2021-07-20 Travel 1.2.840.1 1.2.851.457 7729 457969 Methodi 00:00:00 00:00:[address] 3.430.2.7 0.2.7.3.698 Ho spita .3.981498 084.8 l .8 2021-07-14 2021-07-14 Infusion Keiry Cabral 1.2.840.1 404738169 8327973265 Methodi 09:00:00 11:30:00 Tyrone Rice 13562.1.[address] 3.430.2.7 Hospit a .3.505913 l .8 2021-07-14 2021-07-14 Infusion Keiry Cabral 1.2.840.1 385619396 4398009514 Methodi 09:00:00 11:30:00 Tyrone Rice 09119.1.[address] 3.430.2.7 Hospit a .3.659111 l .8 2021-07-14 2021-07-14 Telemedici Gemma, 1.2.840.1 619349491 21 54157745 Methodi 10:00:00 10:20:00 ne Tyrone 43598.1.1 977 s t 3.430.2.7 Hospit a .3.723438 l .8 2021-07-14 2021-07-14 Telemedici Gemma, 1.2.840.1 525090212 21 26967314 Methodi 10:00:00 10:20:00 ne Tyrone 12826.1.1 977 s t 3.430.2.7 Hospit a .3.268878 l .8 2021-07-14 2021-07-14 Orders Umoru, 1.2.840.1 096575597 748889 9654 Methodi 00:00:00 00:00:00 Only Godsfavour 59228.1.1 559 s t 3.430.2.7 Hospit a .3.319588 l .8 2021-07-14 2021-07-14 Travel 1.2.840.1 1.2.904.206 7415 640530 Methodi 00:00:00 00:00:[address] 3.430.2.7 0.2.7.3.698 Ho spita .3.627783 084.8 l .8 2021-07-14 2021-07-14 Orders Umoru, 1.2.840.1 484770038 781364 9031 Methodi 00:00:00 00:00:00 Only Rohith 96912.1.1 559 s t 3.430.2.7 Hospit a .3.299648 l .8 2021-07-14 2021-07-14 Travel 1.2.840.1 1.2.759.473 0273 463034 Methodi 00:00:00 00:00:[address] 3.430.2.7 0.2.7.3.698 Ho spita .3.214242 084.8 l .8 2021-07-08 2021-07-08 Adonis Dave, 1.2.840.1 102950008 592015 0301 Methodi 00:00:00 00:00:00 Only Josias 42697.1.[address] 3.430.2.7 Hospit a .3.173216 l .8 2021-07-07 2021-07-07 Nurse Only Gemma, 1.2.840.1 714396297 76627533 Methodi 14:30:00 15:00:00 Tyrone 15096.1.1 583 s t 3.430.2.7 Hospit a .3.920417 l .8 2021-07-07 2021-07-07 Telemedici Gemma, 1.2.840.1 076309066 53060741 Methodi 13:00:00 13:28:07 ne Tyrone 95592.1.1 700 s t 3.430.2.7 Hospit a .3.243273 l .8 2021-07-07 2021-07-07 Lab Gemma, 1.2.840.1 623504768 09174 Methodi 09:30:00 09:35:00 Tyrone 90103.1.1 041 s t 3.430.2.7 Hospit a .3.564320 l .8 2021-07-07 2021-07-07 Adonis Dave, 1.2.840.1 429208893 755038 3491 Methodi 00:00:00 00:00:00 Only Josias 05878.1.[address] 3.430.2.7 Hospit a .3.883301 l .8 2021-07-07 2021-07-07 Travel 1.2.840.1 1.2.256.536 9030 566033 Methodi 00:00:00 00:00:[address] 3.430.2.7 0.2.7.3.698 Ho spita .3.362693 084.8 l .8 2021-07-03 2021-07-03 Orders Tatiana, 1.2.840.1 672106826 86375 Methodi 00:00:00 00:00:00 Only Mercedes 37834.1.[address] 3.430.2.7 Hospit a .3.473841 l .8 2021-06-30 2021-06-30 Office Gemma, 1.2.840.1 073570169 04452 Methodi 10:00:00 10:20:00 Visit Tyrone 79443.1.1 241 s t 3.430.2.7 Hospit a .3.203448 l .8 2021-06-30 2021-06-30 Nurse Only Gemma, 1.2.840.1 253031735 41573359 Methodi 09:30:00 10:00:00 Tyrone 27814.1.1 182 s t 3.430.2.7 Hospit a .3.854433 l .8 2021-06-30 2021-06-30 Orders Umoru, 1.2.840.1 364661987 742423 6075 Methodi 00:00:00 00:00:00 Only Rohith 61398.1.1 664 s t 3.430.2.7 Hospit a .3.267409 l .8 2021-06-30 2021-06-30 Orders Tenzin, 1.2.840.1 468973180 632407 6800 Methodi 00:00:00 00:00:00 Only Josias 68137.1.[address] 3.430.2.7 Hospit a .3.582392 l .8 2021-06-30 2021-06-30 Orders Tenzin, 1.2.840.1 315168138 217088 3237 Methodi 00:00:00 00:00:00 Only Josias 27091.1.[address] 3.430.2.7 Hospit a .3.894247 l .8 2021-06-30 2021-06-30 Orders Tenzin, 1.2.840.1 422779571 916949 9234 Methodi 00:00:00 00:00:00 Only Josias 83031.1.[address] 3.430.2.7 Hospit a .3.848935 l .8 2021-06-30 2021-06-30 Travel 1.2.840.1 1.2.266.901 3248 558713 Methodi 00:00:00 00:00:[address] 3.430.2.7 0.2.7.3.698 Ho spita .3.798747 084.8 l .8 2021-06-26 2021-06-26 Orders Tatiana, 1.2.840.1 [id number] 79212 Methodi 00:00:00 00:00:00 Only Mercedes 60548.1.[address] 3.430.2.7 Hospit a .3.652862 l .8 2021-06-23 2021-06-23 Infusion Darcourt, 1.2.840.1 049474250 533 6899326 Methodi 12:30:00 15:00:[address] [place] 3.430.2.7 Hospit a .3.229916 l .8 2021-06-23 2021-06-23 Travel 1.2.840.1 1.2.156.232 7758 640953 Methodi 00:00:00 00:00:[address] 3.430.2.7 0.2.7.3.698 Ho spita .3.156398 084.8 l .8 2021-06-23 2021-06-23 Orders Tenzin, 1.2.840.1 324434853 661853 6208 Methodi 00:00:00 00:00:00 Only Josias 94183.1.[address] 3.430.2.7 Hospit a .3.359357 l .8 2021-06-22 2021-06-22 Infusion Keiry Cabral 1.2.840.1 072070270 4631478758 Methodi 12:30:00 15:00:00 Tyrone Rice 84101.1.[address] 3.430.2.7 Hospit a .3.161764 l .8 2021-06-22 2021-06-22 Travel 1.2.840.1 1.2.411.299 4948 078088 Methodi 00:00:00 00:00:[address] 3.430.2.7 0.2.7.3.698 Ho spita .3.114544 084.8 l .8 2021-06-22 2021-06-22 Orders Tenzin, 1.2.840.1 056800997 826523 3628 Methodi 00:00:00 00:00:00 Only Josias 32524.1.[address] 3.430.2.7 Hospit a .3.762561 l .8 2021-06-19 2021-06-19 Infusion Keiry Cabral 1.2.840.1 310996014 7097101861 Methodi 12:30:00 15:00:00 Tyrone Rice 90299.1.[address] 3.430.2.7 Hospit a .3.275702 l .8 2021-06-19 2021-06-19 Orders Tatiana, 1.2.840.1 687114249 75679 13209 Methodi 00:00:00 00:00:00 Only Mercedes 35425.1.[address] 3.430.2.7 Hospit a .3.123603 l .8 2021-06-18 2021-06-18 Infusion Keiry Cabral 1.2.840.1 464249808 0992569107 Methodi 12:30:00 15:00:00 Tyrone Rice 46733.1.[address] 3.430.2.7 Hospit a .3.973075 l .8 2021-06-18 2021-06-18 Orders Tenzin, 1.2.840.1 121319395 986306 3678 Methodi 00:00:00 00:00:00 Only Josias 14601.1.[address] 3.430.2.7 Hospit a .3.195046 l .8 2021-06-18 2021-06-18 Travel 1.2.840.1 1.2.597.609 0832 066780 Methodi 00:00:00 00:00:[address] 3.430.2.7 0.2.7.3.698 Ho spita .3.203539 084.8 l .8 2021-06-17 2021-06-17 Infusion Keiry Cabral 1.2.840.1 867027533 6766659156 Methodi 12:30:00 15:00:00 Tyrone Rice [address]000.1.[address] 3.430.2.7 Hospit a .3.673922 l .8 2021-06-17 2021-06-17 Orders Tenzin, 1.2.840.1 433593359 033581 3110 Methodi 00:00:00 00:00:00 Only Josias 21816.1.[address] 3.430.2.7 Hospit a .3.270724 l .8 2021-06-17 2021-06-17 Travel 1.2.840.1 1.2.746.109 9933 560098 Methodi 00:00:00 00:00:[address] 3.430.2.7 0.2.7.3.698 Ho spita .3.129818 084.8 l .8 2021-06-16 2021-06-16 Infusion Keiry Cabral 1.2.840.1 297823504 0025506238 Methodi 12:30:00 15:00:00 Tyrone Rice 26890.1.[address] 3.430.2.7 Hospit a .3.585757 l .8 2021-06-15 2021-06-15 Infusion Keiry Cabral 1.2.840.1 103927474 3106611555 Methodi 12:30:00 15:00:00 Tyrone Rice 24584.1.[address] 3.430.2.7 Hospit a .3.907609 l .8 2021-06-15 2021-06-15 Office Gemma, 1.2.840.1 092114086 67685 88625 Methodi 13:00:00 14:07:04 Visit Tyrone 70137.1.1 541 s t 3.430.2.7 Hospit a .3.749686 l .8 2021-06-15 2021-06-15 Orders Gemma, 1.2.840.1 343048391 38889 30809 Methodi 00:00:00 00:00:00 Only Tyrone 51553.1.1 683 s t 3.430.2.7 Hospit a .3.868121 l .8 2021-06-15 2021-06-15 Orders Tenzin, 1.2.840.1 109830590 333048 2467 Methodi 00:00:00 00:00:00 Only Josias 47207.1.[address] 3.430.2.7 Hospit a .3.677311 l .8 2021-06-15 2021-06-15 Orders Umoru, 1.2.840.1 504920039 680305 2753 Methodi 00:00:00 00:00:00 Only Eriur 36834.1.1 369 s t 3.430.2.7 Hospit a .3.478611 l .8 2021-06-15 2021-06-15 Travel 1.2.840.1 1.2.412.005 4835 617991 Methodi 00:00:00 00:00:[address] 3.430.2.7 0.2.7.3.698 Ho spita .3.364954 084.8 l .8 2021-06-12 2021-06-12 Orders Tatiana, 1.2.840.1 197025955 12539 Methodi 00:00:00 00:00:00 Only Mercedes 19680.1.[address] 3.430.2.7 Hospit a .3.736528 l .8 2021-06-10 2021-06-10 Orders Umoru, 1.2.840.1 002586457 823884 3268 Methodi 00:00:00 00:00:00 Only Kerriyared 09969.1.1 081 s t 3.430.2.7 Hospit a .3.410828 l .8 2021-06-09 2021-06-09 Telemedici Ally, 1.2.840.1 621618899 2 034380924 Methodi 16:45:00 16:59:17 ne Cyndy 85780.1.[address] [place] 3.430.2.7 Hospit a .3.166703 l .8 2021-06-08 2021-06-08 Office Gemma, 1.2.840.1 864447894 07066 69665 Methodi 11:40:00 12:00:00 Visit Tyrone 49153.1.1 485 s t 3.430.2.7 Hospit a .3.966481 l .8 2021-06-08 2021-06-08 Infusion Keiry Cabral 1.2.840.1 506227740 3496223247 Methodi 09:15:00 11:45:00 Tyrone Rice 93440.1.[address] 3.430.2.7 Hospit a .3.854884 l .8 2021-06-08 2021-06-08 Orders Tenzin, 1.2.840.1 199247400 057913 5892 Methodi 00:00:00 00:00:00 Only Josias 06005.1.[address] 3.430.2.7 Hospit a .3.656798 l .8 2021-06-08 2021-06-08 Travel 1.2.840.1 1.2.058.854 1614 533203 Methodi 00:00:00 00:00:[address] 3.430.2.7 0.2.7.3.698 Ho spita .3.293284 084.8 l .8 2021-06-08 2021-06-08 Orders Tenzin, 1.2.840.1 668180002 040180 8145 Methodi 00:00:00 00:00:00 Only Josias 05605.1.[address] 3.430.2.7 Hospit a .3.939947 l .8 2021-06-05 2021-06-05 Orders Tatiana, 1.2.840.1 004258165 39330 Methodi 00:00:00 00:00:00 Only Mercedes 77455.1.[address] 3.430.2.7 Hospit a .3.586804 l .8 2021-06-03 2021-06-03 Orders Tenzin, 1.2.840.1 604504499 537036 3962 Methodi 00:00:00 00:00:00 Only Josias 60708.1.[address] 3.430.2.7 Hospit a .3.360368 l .8 2021-06-03 2021-06-03 Travel 1.2.840.1 1.2.365.867 9368 908021 Methodi 00:00:00 00:00:[address] 3.430.2.7 0.2.7.3.698 Ho spita .3.117288 084.8 l .8 2021-06-01 2021-06-01 Keiry James 1.2.840.1 920512966 6998246319 Methodi 09:15:00 11:45:00 Tyrone Rice 45384.1.[address] 3.430.2.7 Hospit a .3.731107 l .8 2021-06-01 2021-06-01 Office Gemma, 1.2.840.1 160556709 15815 73896 Methodi 11:20:00 11:40:00 Visit Tyrone 61950.1.1 077 s t 3.430.2.7 Hospit a .3.149924 l .8 2021-06-01 2021-06-01 Orders Vinayak, 1.2.840.1 006383554 630486 3925 Methodi 00:00:00 00:00:00 Only Preethi 74909.1.[address] 3.430.2.7 Hospit a .3.925208 l .8 2021-06-01 2021-06-01 Orders Chintapenta 1.2.840.1 365735365 21 14225501 Methodi 00:00:00 00:00:00 Only , Misty 03490.1.[address] 3.430.2.7 Hospit a .3.389947 l .8 2021-06-01 2021-06-01 Travel 1.2.840.1 1.2.246.587 3717 349849 Methodi 00:00:00 00:00:[address] 3.430.2.7 0.2.7.3.698 Ho spita .3.193039 084.8 l .8 2021-05-29 2021-05-29 Orders Tatiana, 1.2.840.1 763891887 70 Methodi 00:00:00 00:00:00 Only Mercedes 75567.1.[address] 3.430.2.7 Hospit a .3.022712 l .8 2021-05-25 2021-05-25 Clinical 1.2.840.1 625385611 15944 Methodi 15:20:00 15:25:[address] 3.430.2.7 Hospit a .3.324346 l .8 2021-05-25 2021-05-25 Infusion Gemma, 1.2.840.1 [id number] 2100 245418 Methodi 11:30:00 12:00:00 Tyrone 64250.1.1 464 s t 3.430.2.7 Hospit a .3.580080 l .8 2021-05-25 2021-05-25 Nurse Only Gemma, 1.2.840.1 018706388 43219060 Methodi 10:00:00 10:30:00 Tyrone 26690.1.1 976 s t 3.430.2.7 Hospit a .3.692071 l .8 2021-05-25 2021-05-25 Telephone Yenny, 1.2.840.1 181084158 2099956 Methodi 00:00:00 00:00:[address] 3.430.2.7 Hospit a .3.764317 l .8 2021-05-25 2021-05-25 Travel 1.2.840.1 1.2.072.719 1017 186566 Methodi 00:00:00 00:00:[address] 3.430.2.7 0.2.7.3.698 Ho spita .3.979726 084.8 l .8 2021-05-25 2021-05-25 Orders White, 1.2.840.1 33395608620990711 Methodi 00:00:00 00:00:00 Only Zayra 63655.1.[address] 3.430.2.7 Hospit a .3.992502 l .8 2021-05-25 2021-05-25 Orders Tenzin, 1.2.840.1 93835662720990711 Methodi 00:00:00 00:00:00 Only Josias 05105.1.[address] 3.430.2.7 Hospit a .3.677133 l .8 2021-05-22 2021-05-22 Travel 1.2.840.1 1.2.439.996 4021 557469 Methodi 00:00:00 00:00:[address] 3.430.2.7 0.2.7.3.698 Ho spita .3.741794 084.8 l .8 2021-05-22 2021-05-22 Orders Tatiana, 1.2.840.1 [id number] 19483 Methodi 00:00:00 00:00:00 Only Mercedes 39469.1.[address] 3.430.2.7 Hospit a .3.157627 l .8 2021-05-19 2021-05-19 Refill Gemma, 1.2.840.1 84 Methodi 00:00:00 00:00:00 Tyrone 41479.1.1 627 s t 3.430.2.7 Hospit a .3.591415 l .8 2021-05-18 2021-05-18 Office Gemma, 1.2.840.1 Methodi 11:40:00 15:13:36 Visit Tyrone 86284.1.1 536 s t 3.430.2.7 Hospit a .3.309582 l .8 2021-05-18 2021-05-18 Nurse Only Gemma, 1.2.840.1 564733038 20414364 Methodi 10:00:00 10:30:00 Tyrone 46145.1.1 552 s t 3.430.2.7 Hospit a .3.912875 l .8 2021-05-18 2021-05-18 Travel 1.2.840.1 1.2.843.774 8127 228907 Methodi 00:00:00 00:00:[address] 3.430.2.7 0.2.7.3.698 Ho spita .3.896412 084.8 l .8 2021-05-18 2021-05-18 Refill Gemma, 1.2.840.1 44616279779 Methodi 00:00:00 00:00:00 Tyrone 95570.1.1 258 s t 3.430.2.7 Hospit a .3.226733 l .8 2021-05-15 2021-05-15 Orders Tatiana, 1.2.840.1 510482696 36556 67197 Methodi 00:00:00 00:00:00 Only Mercedes 43174.1.[address] 3.430.2.7 Hospit a .3.015510 l .8 2021-05-14 2021-05-14 Nurse Only Gemma, 1.2.840.1 363028651 28877584 Methodi 09:30:00 10:00:00 Tyrone 32566.1.1 047 s t 3.430.2.7 Hospit a .3.138773 l .8 2021-05-14 2021-05-14 Travel 1.2.840.1 1.2.746.504 0261 491439 Methodi 00:00:00 00:00:[address] 3.430.2.7 0.2.7.3.698 Ho spita .3.283850 084.8 l .8 2021-05-12 2021-05-12 Infusion Keiry Cabral 1.2.840.1 864393853 1231399550 Methodi 12:30:00 15:00:[address] Tyrone Rice [address].1.[address] 3.430.2.7 Hospit a .3.003466 l .8 2021-05-11 2021-05-11 Infusion Keiry Cabral 1.2.840.1 501663837 1972713323 Methodi 09:15:00 11:45:00 Tyrone Rice 99286.1.[address] 3.430.2.7 Hospit a .3.466043 l .8 2021-05-11 2021-05-11 Travel 1.2.840.1 1.2.202.452 1994 020978 Methodi 00:00:00 00:00:[address] 3.430.2.7 0.2.7.3.698 Ho spita .3.966793 084.8 l .8 2021-05-11 2021-05-11 Orders Tenzin, 1.2.840.1 752724073 131759 3868 Methodi 00:00:00 00:00:00 Only Josias 42236.1.[address] 3.430.2.7 Hospit a .3.896788 l .8 2021-05-11 2021-05-11 Telephone Gemma, 1.2.840.1 509329386 263 4145634 Methodi 00:00:00 00:00:00 Tyrone 63798.1.1 559 s t 3.430.2.7 Hospit a .3.292165 l .8 2021-05-08 2021-05-08 Infusion Keiry Cabral 1.2.840.1 191988064 0387620139 Methodi 09:15:00 11:45:00 Miguel Angel Ricedhartha 19399.1.[address] 3.430.2.7 Hospit a .3.411714 l .8 2021-05-08 2021-05-08 Travel 1.2.840.1 1.2.616.682 9637 338444 Methodi 00:00:00 00:00:[address] 3.430.2.7 0.2.7.3.698 Ho spita .3.180258 084.8 l .8 2021-05-08 2021-05-08 Orders Tatiana, 1.2.840.1 498914992 21837 72834 Methodi 00:00:00 00:00:00 Only Mercedes 46203.1.[address] 3.430.2.7 Hospit a .3.454642 l .8 2021-05-07 2021-05-07 Infusion Keiry Cabral 1.2.840.1 988835097 1864937479 Methodi 09:15:00 11:45:[address]trone 33443.1.[address] 3.430.2.7 Hospit a .3.934941 l .8 2021-05-06 2021-05-06 Infusion Keiry Cabral 1.2.840.1 733449214 0977203990 Methodi 09:15:00 11:45:[address] Tyrone Rice [address]46.1.[address] 3.430.2.7 Hospit a .3.705510 l .8 2021-05-06 2021-05-06 Travel 1.2.840.1 1.2.022.678 6905 882727 Methodi 00:00:00 00:00:[address] 3.430.2.7 0.2.7.3.698 Ho spita .3.841997 084.8 l .8 2021-05-05 2021-05-05 Infusion Keiry Cabral 1.2.840.1 659980311 7318538271 Methodi 09:15:00 11:45:[address] Tyrone Rice [address].1.[address] 3.430.2.7 Hospit a .3.101636 l .8 2021-05-05 2021-05-05 Telephone Gemma, 1.2.840.1 173176229 238 2846659 Methodi 00:00:00 00:00:00 Tyrone 41292.1.1 810 s t 3.430.2.7 Hospit a .3.530356 l .8 2021-05-05 2021-05-05 Orders Tenzin, 1.2.840.1 907350934 925919 1781 Methodi 00:00:00 00:00:00 Only Josias 48459.1.[address] 3.430.2.7 Hospit a .3.732069 l .8 2021-05-05 2021-05-05 Orders Darnell, 1.2.840.1 030787542 132647 1462 Methodi 00:00:00 00:00:00 Only Estelle 46902.1.[address] 3.430.2.7 Hospit a .3.290404 l .8 2021-05-04 2021-05-04 Office Gemma, 1.2.840.1 285962012 Methodi 10:00:00 10:20:00 Visit Tyrone 40446.1.1 093 s t 3.430.2.7 Hospit a .3.672506 l .8 2021-05-04 2021-05-04 Infusion Cabral, 1.2.840.1 941076542461 Methodi 09:15:00 09:45:[address] 3.430.2.7 Hospit a .3.914449 l .8 2021-05-04 2021-05-04 Travel 1.2.840.1 1.2.098.545 6120 545681 Methodi 00:00:00 00:00:[address] 3.430.2.7 0.2.7.3.698 Ho spita .3.774011 084.8 l .8 2021-05-01 2021-05-01 Orders Tatiana, 1.2.840.1 971744563 Methodi 00:00:00 00:00:00 Only Mercedes 52856.1.[address] 3.430.2.7 Hospit a .3.047530 l .8 2021-04-30 2021-04-30 Nurse Only Gemma, 1.2.840.1 070578739 71216022 Methodi 10:00:00 10:30:00 Tyrone 94171.1.1 666 s t 3.430.2.7 Hospit a .3.651129 l .8 2021-04-30 2021-04-30 Travel 1.2.840.1 1.2.088.284 5242 543227 Methodi 00:00:00 00:00:[address] 3.430.2.7 0.2.7.3.698 Ho spita .3.197016 084.8 l .8 2021-04-28 2021-04-28 Orders [facility], 1.2.840.1 509517447 70 Methodi 00:00:00 00:00:00 Only Tyrone 54603.1.1 541 s t 3.430.2.7 Hospit a .3.927822 l .8 2021-04-27 2021-04-27 [facility], 1.2.840.1 433147913 2099909 Methodi 11:29:12 23:59:00 Encounter Tyrone 80752.1.[address] 3.430.2.7 Hospit a .3.814086 l .8 2021-04-27 2021-04-27 Nurse Only [facility], 1.2.840.1 686011973 22290890 Methodi 10:30:00 11:00:00 Tyrone 86826.1.1 651 s t 3.430.2.7 Hospit a .3.239219 l .8 2021-04-27 2021-04-27 Telephone Tenzin, 1.2.840.1 911011021 2099909 Methodi 00:00:00 00:00:[address] 3.430.2.7 Hospit a .3.984665 l .8 2021-04-27 2021-04-27 Orders Tenzin, 1.2.840.1 543271732 383379 0835 Methodi 00:00:00 00:00:00 Only Josias 05988.1.[address] 3.430.2.7 Hospit a .3.954480 l .8 2021-04-27 2021-04-27 Travel 1.2.840.1 1.2.529.237 1314 845058 Methodi 00:00:00 00:00:[address] 3.430.2.7 0.2.7.3.698 Ho spita .3.796104 084.8 l .8 2021-04-24 2021-04-24 Orders Tatiana, 1.2.840.1 113734975 48814 22964 Methodi 00:00:00 00:00:00 Only Mercedes 42708.1.[address] 3.430.2.7 Hospit a .3.565632 l .8 2021-04-23 2021-04-23 Nurse Only Gemma, 1.2.840.1 320319763 60471513 Methodi 11:30:00 12:00:00 Ytrone 60570.1.1 623 s t 3.430.2.7 Hospit a .3.997562 l .8 2021-04-23 2021-04-23 Travel 1.2.840.1 1.2.903.658 9870 162895 Methodi 00:00:00 00:00:[address] 3.430.2.7 0.2.7.3.698 Ho spita .3.516619 084.8 l .8 2021-04-22 2021-04-22 Telephone Tenzin, 1.2.840.1 671106331 2099 854216 Methodi 00:00:00 00:00:[address] 3.430.2.7 Hospit a .3.297377 l .8 2021-04-20 2021-04-20 Office Gemma, 1.2.840.1 272830326 81244 Methodi 13:40:00 14:00:00 Visit Tyrone 92217.1.1 729 s t 3.430.2.7 Hospit a .3.125876 l .8 2021-04-20 2021-04-20 Nurse Only Gemma, 1.2.840.1 942316053 80062959 Methodi 10:30:00 11:00:00 Tyrone 40984.1.1 604 s t 3.430.2.7 Hospit a .3.485193 l .8 2021-04-20 2021-04-20 Orders Tenzin, 1.2.840.1 811947667 436795 3894 Methodi 00:00:00 00:00:00 Only Josias 96552.1.[address] 3.430.2.7 Hospit a .3.295937 l .8 2021-04-20 2021-04-20 Orders Tenzin, 1.2.840.1 815457121 593378 7226 Methodi 00:00:00 00:00:00 Only Josias 54480.1.[address] 3.430.2.7 Hospit a .3.591773 l .8 2021-04-20 2021-04-20 Travel 1.2.840.1 1.2.493.280 1168 079989 Methodi 00:00:00 00:00:[address] 3.430.2.7 0.2.7.3.698 Ho spita .3.511089 084.8 l .8 2021-04-17 2021-04-17 Nurse Only Gemma, 1.2.840.1 587372827 59341009 Methodi 11:00:00 11:30:00 Tyrone 18162.1.1 457 s t 3.430.2.7 Hospit a .3.072221 l .8 2021-04-17 2021-04-17 Travel 1.2.840.1 1.2.226.289 5706 11020213 Methodi 00:00:00 00:00:[address] 3.430.2.7 0.2.7.3.698 Ho spita .3.318609 084.8 l .8 2021-04-17 2021-04-17 Orders Tatiana, 1.2.840.1 056346968 21001 79396 Methodi 00:00:00 00:00:00 Only Mercedes 37120.1.[address] 3.430.2.7 Hospit a .3.839609 l .8 2021-04-14 2021-04-14 Infusion Cabral, 1.2.840.1 560407040 21001 28533 Methodi 09:15:00 11:45:[address] 3.430.2.7 Hospit a .3.390146 l .8 2021-04-13 2021-04-13 Infusion Cabral, 1.2.840.1 196182823 73295 Methodi 09:15:00 11:45:[address] 3.430.2.7 Hospit a .3.975368 l .8 2021-04-13 2021-04-13 Office Aba, 1.2.840.1 111374137 89077920 Methodi 10:00:00 10:15:00 Visit Peg Verdugo 74533.1.[address] 3.430.2.7 Hospit a .3.833513 l .8 2021-04-13 2021-04-13 Travel 1.2.840.1 1.2.033.173 0601 641561 Methodi 00:00:00 00:00:[address] 3.430.2.7 0.2.7.3.698 Ho spita .3.891272 084.8 l .8 2021-04-10 2021-04-10 Infusion Cabral, 1.2.840.1 634859398701 Methodi 09:15:00 11:45:[address] 3.430.2.7 Hospit a .3.680322 l .8 2021-04-10 2021-04-10 Travel 1.2.840.1 1.2.083.020 1451 725063 Methodi 00:00:00 00:00:[address] 3.430.2.7 0.2.7.3.698 Ho spita .3.182466 084.8 l .8 2021-04-10 2021-04-10 Orders Tatiana, 1.2.840.1 805592385 21001 49110 Methodi 00:00:00 00:00:00 Only Mercedes 99301.1.[address] 3.430.2.7 Hospit a .3.786525 l .8 2021-04-09 2021-04-09 Infusion Marianna, 1.2.840.1 579373560 21001 60568 Methodi 09:15:00 11:45:[address] 3.430.2.7 Hospit a .3.452736 l .8 2021-04-08 2021-04-08 Infusion Marianna, 1.2.840.1 701 Methodi 09:15:00 11:45:[address] 3.430.2.7 Hospit a .3.892291 l .8 2021-04-08 2021-04-08 Orders White, 1.2.840.1 939058228 357042 4961 Methodi 00:00:00 00:00:00 Only Zayra 64337.1.[address] 3.430.2.7 Hospit a .3.480242 l .8 2021-04-08 2021-04-08 Travel 1.2.840.1 1.2.056.330 8533 988660 Methodi 00:00:00 00:00:[address] 3.430.2.7 0.2.7.3.698 Ho spita .3.460840 084.8 l .8 2021-04-06 2021-04-07 Office Gemma, 1.2.840.1 284524954 21001 13234 Methodi 11:40:00 13:52:31 Visit Tyrone 63491.1.1 812 s t 3.430.2.7 Hospit a .3.867078 l .8 2021-04-07 2021-04-07 Infusion Marianna, 1.2.840.1 813897720 21001 85412 Methodi 09:15:00 11:45:[address] 3.430.2.7 Hospit a .3.650706 l .8 2021-04-06 2021-04-06 Infusion Cabral, 1.2.840.1 797809151 21001 71389 Methodi 10:30:00 13:00:[address] 3.430.2.7 Hospit a .3.554733 l .8 2021-04-06 2021-04-06 Telephone Tenzin, 1.2.840.1 779549182 2100 117017 Methodi 00:00:00 00:00:[address] 3.430.2.7 Hospit a .3.245941 l .8 2021-04-06 2021-04-06 Orders White, 1.2.840.1 989181433 751685 5130 Methodi 00:00:00 00:00:00 Only Zayra 66763.1.[address] 3.430.2.7 Hospit a .3.285372 l .8 2021-04-06 2021-04-06 Travel 1.2.840.1 1.2.151.444 3568 729895 Methodi 00:00:00 00:00:[address] 3.430.2.7 0.2.7.3.698 Ho spita .3.644586 084.8 l .8 2021-04-03 2021-04-03 Nurse Only Ally, 1.2.840.1 541544054 2 698445370 Methodi 10:30:00 11:00:[address] [place] 3.430.2.7 Hospit a .3.264601 l .8 2021-04-03 2021-04-03 Travel 1.2.840.1 1.2.766.844 2461 676222 Methodi 00:00:00 00:00:[address] 3.430.2.7 0.2.7.3.698 Ho spita .3.336203 084.8 l .8 2021-04-03 2021-04-03 Orders Tatiana, 1.2.840.1 174578081 Methodi 00:00:00 00:00:00 Only Mercedes 22231.1.[address] 3.430.2.7 Hospit a .3.680782 l .8 2021-04-01 2021-04-01 Orders White, 1.2.840.1 945535454 226420 4424 Methodi 00:00:00 00:00:00 Only Zayra 88088.1.[address] 3.430.2.7 Hospit a .3.262353 l .8 2021-04-01 2021-04-01 Orders Gemma, 1.2.840.1 226600603 21001 32245 Methodi 00:00:00 00:00:00 Only Tyrone 32532.1.1 584 s t 3.430.2.7 Hospit a .3.287760 l .8 2021-03-31 2021-03-31 Office Ally, 1.2.840.1 246477306 2100 901509 Methodi 10:00:00 13:55:04 Visit Cyndy 69615.1.[address] [place] 3.430.2.7 Hospit a .3.194590 l .8 2021-03-31 2021-03-31 Nurse Only Ally, 1.2.840.1 767301704 2 257753558 Methodi 11:00:00 11:30:[address] [place] 3.430.2.7 Hospit a .3.805347 l .8 2021-03-31 2021-03-31 Office Gemma, 1.2.840.1 290697360 85595 14203 Methodi 11:00:00 11:20:00 Visit Tyrone 16829.1.1 975 s t 3.430.2.7 Hospit a .3.468524 l .8 2021-03-31 2021-03-31 Orders Chintapenta 1.2.840.1 430331037 21 62735169 Methodi 00:00:00 00:00:00 Only , Misty 78820.1.[address] 3.430.2.7 Hospit a .3.611728 l .8 2021-03-31 2021-03-31 Travel 1.2.840.1 1.2.502.137 8344 518137 Methodi 00:00:00 00:00:[address] 3.430.2.7 0.2.7.3.698 Ho spita .3.289925 084.8 l .8 2021-03-27 2021-03-27 Nurse Only Zinatab, 1.2.840.1 066858177 2 847289377 Methodi 11:00:00 11:30:[address] [place] 3.430.2.7 Hospit a .3.040280 l .8 2021-03-27 2021-03-27 Travel 1.2.840.1 1.2.589.295 6255 972952 Methodi 00:00:00 00:00:[address] 3.430.2.7 0.2.7.3.698 Ho spita .3.989402 084.8 l .8 2021-03-27 2021-03-27 Orders Tatiana, 1.2.840.1 449687021 65106 Methodi 00:00:00 00:00:00 Only Mercedes 63435.1.[address] 3.430.2.7 Hospit a .3.641435 l .8 2021-03-26 2021-03-26 Telephone White, 1.2.840.1 627819311 2099 530943 Methodi 00:00:00 00:00:[address] 3.430.2.7 Hospit a .3.841909 l .8 2021-03-26 2021-03-26 Orders White, 1.2.840.1 865828554 374037 8013 Methodi 00:00:00 00:00:00 Only Zayra 88180.1.[address] 3.430.2.7 Hospit a .3.321156 l .8 2021-03-25 2021-03-25 Orders White, 1.2.840.1 452324475 790143 7751 Methodi 00:00:00 00:00:00 Only Zayra 38220.1.[address] 3.430.2.7 Hospit a .3.216136 l .8 2021-03-25 2021-03-25 Telephone Ally, 1.2.840.1 632990875 21 18927583 Methodi 00:00:00 00:00:[address] [place] 3.430.2.7 Hospit a .3.793077 l .8 2021-03-25 2021-03-25 Travel 1.2.840.1 1.2.881.779 3620 719154 Methodi 00:00:00 00:00:[address] 3.430.2.7 0.2.7.3.698 Ho spita .3.752354 084.8 l .8 2021-03-23 2021-03-23 Telephone Gemma, 1.2.840.1 810579247 828 0311625 Methodi 00:00:00 00:00:00 Tyrone 65479.1.1 057 s t 3.430.2.7 Hospit a .3.530969 l .8 2021-03-20 2021-03-20 Office Aba, 1.2.840.1 470412455 21 52546389 Methodi 11:30:00 12:30:00 Visit Peg Verdugo 79409.1.[address] 3.430.2.7 Hospit a .3.388238 l .8 2021-03-20 2021-03-20 Office Aba, 1.2.840.1 153427321 21 98048303 Methodi 09:30:00 09:45:00 Visit Coryandreea Lucina 69268.1.[address] 3.430.2.7 Hospit a .3.333309 l .8 2021-03-20 2021-03-20 Nurse Only Zinatab, 1.2.840.1 701558136 2 241359550 Methodi 08:00:00 08:30:[address] [place] 3.430.2.7 Hospit a .3.838056 l .8 2021-03-20 2021-03-20 Travel 1.2.840.1 1.2.501.541 5844 767814 Methodi 00:00:00 00:00:[address] 3.430.2.7 0.2.7.3.698 Ho spita .3.780537 084.8 l .8 2021-03-20 2021-03-20 Orders Tatiana, 1.2.840.1 393904956 Methodi 00:00:00 00:00:00 Only Mercedes 67085.1.[address] 3.430.2.7 Hospit a .3.898186 l .8 2021-03-17 2021-03-17 Nurse Only Darcourt, 1.2.840.1 427108812 2 400241911 Methodi 10:30:00 11:00:[address] [place] 3.430.2.7 Hospit a .3.679146 l .8 2021-03-17 2021-03-17 Telephone Tatiana, 1.2.840.1 091515440 241 6050876 Methodi 00:00:00 00:00:[address] 3.430.2.7 Hospit a .3.461175 l .8 2021-03-17 2021-03-17 Orders Aba, 1.2.840.1 144634539 21 57726125 Methodi 00:00:00 00:00:00 Only Wengrid Lucina 43355.1.[address] 3.430.2.7 Hospit a .3.782436 l .8 2021-03-17 2021-03-17 Orders White, 1.2.840.1 404961964 643266 8375 Methodi 00:00:00 00:00:00 Only Zayra 69726.1.[address] 3.430.2.7 Hospit a .3.078292 l .8 2021-03-17 2021-03-17 Orders Tatiana, 1.2.840.1 152530931 20597 Methodi 00:00:00 00:00:00 Only Mercedes 49739.1.[address] 3.430.2.7 Hospit a .3.093886 l .8 2021-03-17 2021-03-17 Orders Vinayak, 1.2.840.1 362076064 307471 2129 Methodi 00:00:00 00:00:00 Only Preethi 66640.1.[address] 3.430.2.7 Hospit a .3.275185 l .8 2021-03-17 2021-03-17 Travel 1.2.840.1 1.2.906.204 2123 327184 Methodi 00:00:00 00:00:[address] 3.430.2.7 0.2.7.3.698 Ho spita .3.423398 084.8 l .8 2021-03-13 2021-03-13 Nurse Only Ally, 1.2.840.1 774128616 2 231132000 Methodi 11:00:00 11:30:[address] [place] 3.430.2.7 Hospit a .3.164553 l .8 2021-03-13 2021-03-13 Orders White, 1.2.840.1 433374266 012745 5696 Methodi 00:00:00 00:00:00 Only Zayra 10032.1.[address] 3.430.2.7 Hospit a .3.075732 l .8 2021-03-13 2021-03-13 Travel 1.2.840.1 1.2.981.599 2508 883502 Methodi 00:00:00 00:00:[address] 3.430.2.7 0.2.7.3.698 Ho spita .3.582293 084.8 l .8 2021-03-13 2021-03-13 Orders Tatiana, 1.2.840.1 525104193 52723 71552 Methodi 00:00:00 00:00:00 Only Mercedes 25420.1.[address] 3.430.2.7 Hospit a .3.874800 l .8 2021-03-11 2021-03-11 Outpatient Miller_S[facility] VFP VFP [id number] 872- [facility] 09:24:00 09:24:00 62908 Family Practic e 2021-03-11 2021-03-11 Telephone Vinayak, 1.2.840.1 [id number] [id number] [facility] 00:00:00 00:00:[address] 3.430.2.7 Hospit a .3.325776 l .8 2021-03-11 2021-03-11 Orders Vinayak, 1.2.840.1 [id number] [facility] 00:00:00 00:00:00 Only Preethi 41667.1.[address] 3.430.2.7 Hospit a .3.322748 l .8 2021-03-11 2021-03-11 Refill Gemma, 1.2.840.1 [id number] 38333 [facility] 00:00:00 00:00:00 [place] 96380.1.1 857 s t 3.430.2.7 Hospit a .3.394900 l .8 2021-03-09 2021-03-09 Outpatient [facility] [id number] [place] 00:00:00 00:00:00 CYNDY [address] 2021-03-06 2021-03-06 Outpatient [facility] [id number] [place] 00:00:00 00:00:00 CYNDY [address] 2021-03-03 2021-03-03 Outpatient MARIANNA [facility] [id number] [place] 00:00:00 00:00:00 PETROS [address] 2021-03-02 2021-03-02 Outpatient DARCOURT, [facility] [id number] [place] 00:00:00 00:00:00 CYNDY 683 [facility] 2021-03-02 2021-03-02 Outpatient GEMMA, [facility] [id number] [place] 00:00:00 00:00:00 TYRONE 044 Met [facility] 2021-02-26 2021-02-26 Outpatient DARCOURT, [facility] [id number] [place] 00:00:00 00:00:00 CYNDY 878 [facility] 2021-02-26 2021-02-26 Outpatient GEMMA, [facility] [id number] [place] 00:00:00 00:00:00 TYRONE 293 Met [facility] 2021-02-23 2021-02-23 Outpatient DARCOURT, [facility] [id number] [place] 00:00:00 00:00:00 CYNDY 433 [facility] 2021-02-23 2021-02-23 Outpatient GEMMA, [facility] [id number] [place] 00:00:00 00:00:00 TYRONE 671 Met [facility] 2021-02-10 2021-02-19 Inpatient RIGOBERTO, [facility] [id number] [place] 00:00:00 00:00:00 SARA 745 Method i 2021-02-10 2021-02-10 Outpatient DARCOURT, [facility] [id number] [place] 00:00:00 00:00:00 CYNDY 750 [facility] 2021-02-10 2021-02-10 Outpatient DARCOURT, [facility] [id number] [place] 00:00:00 00:00:00 CYNDY 128 [facility] 2021-02-02 2021-02-02 Outpatient DARCOURT, [facility] [id number] [place] 00:00:00 00:00:00 CYNDY 394 [facility] 2021-01-16 2021-01-16 Outpatient CABRAL, [facility] [id number] [place] 00:00:00 00:00:00 PETROS 635 [facility] 2021-01-06 2021-01-06 Outpatient DARCOURT, [facility] [id number] [place] 00:00:00 00:00:00 CYNDY [address] 2020-12-30 2020-12-30 Outpatient ZINAURT, [facility] [id number] [place] 00:00:00 00:00:00 CYNDY [address] 2020-12-25 2020-12-25 Outpatient Miller_S_AH VFP VFP [phone] [facility] 04:12:00 04:12:00 07178 Family Practic e 2020-12-16 2020-12-16 Outpatient QUANG, [facility] [id number] [place] 00:00:00 00:00:00 AIDA [address] 2020-12-02 2020-12-02 Outpatient ALLY, [facility] [id number] [place] 00:00:00 00:00:00 CYNDY [address] 2020-11-25 2020-11-25 Outpatient QUANG, [facility] [id number] [place] 00:00:00 00:00:00 AIDA [address] 2020-11-22 2020-11-22 Outpatient QUANG, [facility] [id number] [place] 00:00:00 00:00:00 AIDA [address] 2020-11-20 2020-11-20 Outpatient [facility] [id number] [place] 00:00:00 00:00:[address] 2020-11-20 2020-11-20 Outpatient QUANG, [facility] [id number] [place] 00:00:00 00:00:00 AIDA [address] 2020-11-13 2020-11-13 Outpatient MILES, [facility] [id number] [place] 00:00:00 00:00:00 AIDA [address] 2020-10-31 2020-10-31 Outpatient MILES, [facility] [id number] [place] 00:00:00 00:00:00 AIDA [address] 2020-10-31 2020-10-31 Outpatient MILES, [facility] [id number] [place] 00:00:00 00:00:00 AIDA [address] 2020-10-24 2020-10-24 Outpatient Severo-Mbayo VFP VFP [id number]- [facility] 05:28:00 05:28:00 _A_AH 71872 Family Practic e 2020-10-24 2020-10-24 Outpatient [facility] [id number] [place] 00:00:00 00:00:00 AIDA [address] 2020-10-20 2020-10-20 Outpatient [facility] [id number] [place] 00:00:00 00:00:00 AIDA [address] 2020-10-20 2020-10-20 Outpatient [facility] [id number] [place] 00:00:00 00:00:00 AIDA [address] 2020-09-29 2020-09-29 Outpatient Severo-Mbayo VFP VFP [id number] [facility] 09:20:00 09:20:00 _A_AH 76286 Family Practic e 2020-09-25 2020-09-25 Outpatient Severo-Mbayo VFP VFP [id number] [facility] 04:35:00 04:35:00 _A_AH 95352 Family Practic e 2020-09-25 2020-09-25 Abril VFP [place] - [id number] [place] 00:00:00 00:00:00 Severo-Mbay [facility] Jonathon brown DEVICE ENGINEER: Medical - Practi c [email or web address] [address], [place] [address] , Ph. 2020-09-09 2020-09-09 Outpatient [facility] [id number] [address] [place] [address] 00:00:00 00:00:00 AIDA [address] 2019-09-28 2019-09-28 Outpatient Severo-Mbayo VFP VFP [id number] [facility] 05:48:00 05:48:00 _A_AH 09852 Family Practic e Results Test Description Test Time Test Comments Results Result Comments Source Comprehensive metabolic panel 2022-07-10 07:09:00 Test Item Value Reference Range Interpretation Comme nts Glucose (test code = 143 mg/dL 65-139 H Non-fa sting reference 2345-7) interval BUN (test code = 3094-0) 23 mg/dL 7-25 Creatinine (test code = 1.20 mg/dL 0.70-1.22 2160-0) eGFR (test code = 38845-7) See_Comment T he eGFR is based on the CKD-EPI 202 1 equation. To ca lculate the new eGFR fr om a previous Creati nine or Cystatin Cresul t, go to [email or web address].kid samson.org /professionals/ kdoqi/g fr%5Fcalculator [Automated mess age] The system [employer] generated this result transmitted ref erence range: > OR = 6 0 mL/min/1.73m2. The reference range was not used to int erpret this result as normal/abnormal . BUN/creatinine ratio (test NOT APPLICABLE See_Comment [Automated message] code = 3097-3) The system [facility] [facility] generated this result transmitted ref erence range: 6 - 22 ( calc). The reference r iris was not used to interpret this result as normal/abnor mal. Sodium (test code = 140 mmol/L 974-362 7200-2) Potassium (test code = 4.2 mmol/L 3.5-5.3 2823-3) Chloride (test code = 107 mmol/L 98-110 2075-0) CO2 (test code = 2028-9) 24 mmol/L 20-32 Calcium (test code = 8.5 mg/dL 8.6-10.3 L 72283-3) Protein (test code = 5.5 g/dL 6.1-8.1 L 2885-2) Albumin, S (test code = 3.6 g/dL 3.6-5.1 1751-7) Globulin, total (test code See_Comment [Automated message] = 29188-1) The system [employer] generated this result transmitted ref erence range: 1.9 - 3. 7 g/dL (calc). The ref erence range was not u sed to interpret this result as normal/abnor mal. Albumin/globulin ratio See_Comment [Aut omated message] (test code = 1759-0) The [facility] tem which generated this result transmitted ref erence range: 1.0 - 2. 5 (calc). The ref erence range was not u sed to interpret this result as normal/abnor mal. Total bilirubin (test code 0.5 mg/dL 0.2-1.2 = 1974-) Alkaline phosphatase (test 151 U/L 35-144 H code = 6768-6) AST (test code = 1920-8) 25 U/L 10-35 ALT (test code = 1742-6) 10 U/L 9-46 DERREK (test code = DERREK) FASTING:NOAN UPDATE OR CORRECTION HAS BEEN MADE TO NAME FASTING: NO RAC (test code = RAC) Performing Organization Information: Site ID: A Name: [facility] Address: [address] [place] [phone] Director: Bartolo Elizalde Lab Interpretation (test Abnormal code = 02346-1) [facility] [id number] 07:09:00 Test Item Value Reference Range Interpretation Comments Uric acid 4.2 mg/dL 4.0-8.0 Therapeutic tar get (test code = for gout patien ts: 3084-1) <6.0 mg/dL DERREK (test FASTING:NOAN UPDATE code = DERREK) OR CORRECTION HAS BEEN MADE TO NAME FASTING: NO RAC (test Performing code = RAC) Organization Information: Site ID: A Name: [facility] Address: [address] [place] [phone] Director: Bartolo Elizalde [facility] with platelet and fhxwncqfmegd9953-03-41 07:09:00 Test Item Value Reference Interpretation Comments Range WBC (test code = See_Comment L [Automated message] The 6690-2) system which nerated this result tra nsmitted reference range : 3.8 - 10.8 Thousand/u L. The reference range was not used to interpr et this result as michael l/abnormal. RBC (test code = See_Comment L [Automated message] The 789-8) system which ge nerated this result tra nsmitted reference range : 4.20 - 5.80 Million/uL . The reference range was not used to interpr et this result as michael l/abnormal. HGB (test code = 6.7 g/dL 13.2-17.1 L Verified by repeat 468-7) analysis. HCT (test code = 19.0 % 38.5-50.0 L Verified by repeat 4544-3) analysis. MCV (test code = 102.2 fL 80.0-100.0 H 787-2) MCH (test code = 36.0 pg 27.0-33.0 H 785-6) MCHC (test code = 35.3 g/dL 32.0-36.0 786-4) RDW (test code = 17.1 % 11.0-15.0 H 788-0) Platelet count See_Comment L [Automated m essage] The (test code = system which ge nerated 777-3) this result tra nsmitted reference range : 140 - 400 Thousand/uL. Th e reference range was not u sed to interpret this result as normal/abnormal . MPV (test code = 10.2 fL 7.5-12.5 776-5) Neutrophils, See_Comment L Verified by rep eat absolute (test analysis. [Au tomated code = 751-8) message] The s ystem which generated this result transmitted ref erence range: 1,500 - 7,800 cells/uL. The r eference range was not u sed to interpret this result as normal/abnormal . Lymphocytes, See_Comment [Automated mes flaquito] The absolute (test system which generated code = 731-0) this result tr ansmitted reference range : 850 - 3,900 cells/uL. The reference range was not used to interpr et this result as michael l/abnormal. Monocytes, See_Comment L [Automated mes flaquito] The absolute (test system which generated code = 742-7) this result tr ansmitted reference range : 200 - 950 cells/uL. The r eference range was not u sed to interpret this result as normal/abnormal . Eosinophils, See_Comment [Automated mes flaquito] The absolute (test system which generated code = 711-2) this result tr ansmitted reference range : 15 - 500 cells/uL. The r eference range was not u sed to interpret this result as normal/abnormal . Basophils, See_Comment [Automated mes flaquito] The absolute (test system which generated code = 704-7) this result tr ansmitted reference range : 0 - 200 cells/uL. The r eference range was not u sed to interpret this result as normal/abnormal . Neutrophils (test 17.5 % code = 770-8) Lymphocytes (test 75.4 % code = 736-9) Monocytes (test 6.0 % code = 5905-5) Eosinophils (test 1.1 % code = 713-8) Basophils + RC 0.0 % (test code = 706-2) Nucleated RBC Polychromasia 1 (test code = +Anisocytosis 1 +Review of 8251-1) the peripheral smear revealsdecrease d numbers of platelets.Du e to leukopenia the differentialper centages may be imprecis e. DERREK (test code = FASTING:NOAN DERREK) UPDATE OR CORRECTION HAS BEEN MADE TO NAME FASTING: NO RAC (test code = Performing RAC) Organization Information: Site ID: RGA Name: [facility] Address: [address] [place] [phone] Director: Bartolo Luna Abnormal Interpretation (test code = 46602-5) [facility] CenterZvgeclutRSGIDTZJU5011-64-07 16:55:02 Test Item Value Reference Range Interpretation Comments [employer] left side See_Comment [Automa preethi message] The (test code = 38069-6M) syste m which generated this result tra nsmitted reference range : 1.40 - 0.90 NA. The re ference range was not u sed to interpret this result as normal/abnormal . [employer] right side See_Comment Exercis e Modality: At (test code = 92393-1G) RestN ormal - 1.40 - 1.00Borderline - 0.99 - 0.90Mild - 0.89 - 0.60Moderate - 0.59 - 0.30Severe - 0. 29 - 0.00 [Automated mess age] The system which ge nerated this result tra nsmitted reference range : 1.40 - 0.90 NA. The re ference range was not u sed to interpret this result as normal/abnormal . Norma Spence - [id number] 23:01:10 Test Item Value Reference Range Interpretation Comments Interpretation (test IDH1 Result: code = 3035904) Wild TypeIDH2 Result: Wild Type IDH1 result (test code Wild Type Not-Detected = 1577) IDH2 result (test code Wild Type Not-Detected = 1578) IDH (test code = 129) See link below Case Number: for PDF Lab [id number] Report [facility] pathology [id number] 23:04:30 Test Item Value Reference Range Interpretation Comments Case number (test code = [id number]) Surgical pathology See link below for report (test code = PDF Lab Report 2259) Result status (test code This is Final Report = [id number]) for [id number] [facility] yiqqzkrfwe2710-17-88 22:55:41 Test Item Value Reference Range Interpretation Comments Case number (test code = [id number]) Flow cytometry evaluation See link below for (test code = 8109799) PDF Lab Report [facility] CenterMiscellaneous referral [id number] 14:54:00 Test Item Value Reference Range Interpretation Comments Misc test name AML MRD (test code = 2566) Misc test see comment TEST NAME / SINCERE CRIPTIONAML result (test MRD (Minimal Re sidual code = 1730) Disease) SPECIM EN TYPEBone Marrow Aspirate INTERPRETATION Abnormal myeloid blast p opulation identified. COM MENTAbnormal SA08-xbyzobxm m yeloid blasts represent 8.5% of the white cells and abnor ruben express CD7(major subse t), CD13(increased) . CD33(mildly decreased), CD3 4(uniform), CD38(variably d ecreased), CD56(subset), C D117(variable decreased) CD12 3(increased), and HLA-DR(decr eased to absent) with no rmal expression of C D4 and CD71 without CD4, CD 5, CD14, CD15, CD16, Cd1 9, or Cd64. The immunopheno type of the abnormal blast population is similar to that identified previously. 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 The overall sensiti vity of the assay is conser vatively estimated as 0. 1% but extends to 0.01 % for some immunophenotype s. Clinical and morphologic correlation is recommended. Per forming siteHematopatho logy LaboratoryUnive rsity of [facility]i son Kmtiujo398 [facility], [id number] [address] [facility] CenterB[facility] marrow [id number] 19:23:00 Test Item Value Reference Range Interpretation Comments Bone marrow tray (test code = 989) Done [facility] muuvlmq8478-20-84 14:55:00 Test Item Value Reference Range Interpretation Comments POC glucose (test code 124 mg/dL 65-99 H Opera tor Name: = 74871-5) Koo Ivory I D: [id number] able: No Action Neede d Lab Interpretation Abnormal (test code = 73674-6) [facility] CenterMiscellaneous referral [id number] 15:56:00 Test Item Value Reference Range Interpretation Comments Misc test BCR-ABL1, Qal rflx name (test Qnt code = 2566) Misc test see comment FINAL result (test code = 1730) Patient : CARI EWING GRANTDOB: 1940ex: MalePatient Identifiers: [id number] , [id number] Number (FIN): [id number] ction Date: 10/15/2021 10:58:00 AMPHYS ICIAN: TYRONE RICE ___ BCR-ABL1, Qualitative wit h Reflex to BCR-A BL1 Quantitative [facility] UP test code 4303914 BC R-ABL1 Source Bone Mar row - - - - - - - - - - - - - - - - - - - - - - - - - - - - - - BCR -ABL1, t(9;22) Qual by RT-PCR Not Detected Th is result has been reviewed and ap proved by Lacy morley M.D. There is n o evidence of bev or (p210, e13a2 or e14a2), minor ( p190, e1a2), or micro (e19a2) BCR-ABL 1 fusion transcri pts by RT-PCR analysis . This result does not entirely exclud e the possibility of BCR-ABL1 fusion transcripts oth er than e1a2, e13a2, e1 4a2, and e19a2 or transcripts bel ow the limit of detect ion. INTERPRETIVE INFORMATION: BC R-ABL1, t(9;22) Qual by RT-PCR This assay is d esigned to detect the p resence of BCR-ABL1 translocations with breakpoints in the major breakpoin t cluster region (p210 fusion), minor breakpoint clus ter region (p190 fu jan), or the micro breakpoint clus ter region (p230 fu jan). METHODOLOGY:Rar e BCR-ABL1 fusion s with alternative breakpoints are not detected by thi s test. RNA is isolated from whole blood or bone marrow and reve rse transcribed. Th e resulting cDNA is subjected to mu ltiplex PCR amplificati on with primers designe d to amplify p190, p 210 or p230 BCR-ABL1 f usion transcripts. Th e ABL1 reference gene is also amplified for s pecimen quality control auditor and to ensure the inte grity of RNA. The PCR products are re solved by capillary electrophoresis and evaluated for t he presence of amp licons that indicate a positive result . LIMITATIONS:The limit of detection fo r this assay is 1 BCR- ABL1 positive cell i n 100,000 normal cells. Results of this test must always be interpreted wit hin the clinical contex t and other relevant data, and should not be used alone for a maurice gnosis of malignancy. This test is not int ended to detect minim al residual diseas e. This test was develo ped and its performance characteristics determined by A [facility]. I t has not been cleare d or approved by the [place] Food and Drug Administration. This test was perfor med in a CLIA certifie d laboratory and is intended for cl inical purposes. ======= ======= Test performed by:[facility] [place] [address] 8410 [id number] DERREK (test BCR-ABL1, code = DERREK) Qualitative with Reflex to Quantitative [facility] Test Code: 4270303Gdytnu: bone marrow aspirate in [facility] referral [id number] 15:56:00 Test Item Value Reference Range Interpretation Comments Misc test BCR-ABL1, Qal rflx name (test Qnt code = 2566) Misc test see comment FINAL result (test code = 1730) Patient : CARI EWING GRANTDOB: 1940ex: MalePatient Identifiers: [id number] , [id number] Number (FIN): [id number] ction Date: 10/15/2021 10:58:00 AMPHYS ICIAN: TYRONE RICE ___ BCR-ABL1, Qualitative wit h Reflex to BCR-A BL1 Quantitative [facility] test code 8873728 BC R-ABL1 Source Bone Mar row - - - - - - - - - - - - - - - - - - - - - - - - - - - - - - BCR -ABL1, t(9;22) Qual by RT-PCR Not Detected Th is result has been reviewed and ap proved by Lacy morley M.D. There is n o evidence of bev or (p210, e13a2 or e14a2), minor ( p190, e1a2), or micro (e19a2) BCR-ABL 1 fusion transcri pts by RT-PCR analysis . This result does not entirely exclud e the possibility of BCR-ABL1 fusion transcripts oth er than e1a2, e13a2, e1 4a2, and e19a2 or transcripts bel ow the limit of detect ion. INTERPRETIVE INFORMATION: BC R-ABL1, t(9;22) Qual by RT-PCR This assay is d esigned to detect the p resence of BCR-ABL1 translocations with breakpoints in the major breakpoin t cluster region (p210 fusion), minor breakpoint clus ter region (p190 fu jan), or the micro breakpoint clus ter region (p230 fu jan). METHODOLOGY:Rar e BCR-ABL1 fusion s with alternative breakpoints are not detected by thi s test. RNA is isolated from whole blood or bone marrow and reve rse transcribed. e resulting cDNA is subjected to mu ltiplex PCR amplificati on with primers designe d to amplify p190, p 210 or p230 BCR-ABL1 f usion transcripts. e ABL1 reference gene is also amplified for s pecimen quality control auditor and to ensure the inte grity of RNA. The PCR products are re solved by capillary electrophoresis and evaluated for t he presence of amp licons that indicate a positive result . LIMITATIONS:The limit of detection fo r this assay is 1 BCR- ABL1 positive cell i n 100,000 normal cells. Results of this test must always be interpreted wit hin the clinical contex t and other relevant data, and should not be used alone for a maurice gnosis of malignancy. This test is not int ended to detect minim al residual diseas e. This test was develo ped and its performance characteristics determined by A [facility]. I t has not been cleare d or approved by the [place] Food and Drug Administration. This test was perfor med in a CLIA certifie d laboratory and is intended for cl inical purposes. ======= ======= Test performed by:[facility] [place] [address] 84 8 DERREK (test BCR-ABL1, code = DERREK) Qualitative with Reflex to Quantitative [facility] Test Code: 0921481Coflwn: [facility] [id number] 19:46:15 Test Item Value Reference Range Interpretation Comments Case number (test code = [id number]) Surgical pathology See link below for report (test code = PDF Lab Report 2255) Result status (test code This is Final Report = [id number]) [id number] [facility] [id number] 19:46:15 Test Item Value Reference Range Interpretation Comments Case number (test code = [id number]) Surgical pathology See link below for report (test code = PDF Lab Report 2255) Result status (test code This is Final Report = [id number]) for [id number] [facility] khtcjgjlnw5238-14-01 19:41:50 Test Item Value Reference Range Interpretation Comments Case number (test code = [id number]) Flow cytometry evaluation See link below for (test code = 8853936) PDF Lab Report [facility] ipgnxkjglk9066-35-27 19:41:50 Test Item Value Reference Range Interpretation Comments Case number (test code = [id number]) Flow cytometry evaluation See link below for (test code = 3433654) PDF Lab Report [facility] marrow [id number] 16:51:00 Test Item Value Reference Range Interpretation Comments Bone marrow tray (test code = 989) done [facility] marrow [id number] 16:51:00 Test Item Value Reference Range Interpretation Comments Bone marrow tray (test code = 989) done [facility] [id number] 14:22:00 Test Item Value Reference Range Interpretation Comments POC glucose (test code 176 mg/dL 65-99 H Opera tor Name: Jacob = 15942-2) AugustusDevice ID: [id number] able: TM Notified customer service trainer Interpretation Abnormal (test code = 00064-1) [facility] chscoft2980-09-68 14:22:00 Test Item Value Reference Range Interpretation Comments POC glucose (test code 176 mg/dL 65-99 H Opera tor Name: Jacob = 86860-7) AugustusDevice ID: [id number] able: TMH Notified customer service trainer Interpretation Abnormal (test code = 23177-7) [facility] Center[facility] [id number] 18:27:00 Test Item Value Reference Range Interpretation Comments Product name (test code Red Cells AS1 = 25) Leukored Irrad Unit number (test code = [id number]) Product code (test code U4995G91 = 3092) Dispense status (test Transfused code = 24) Blood expiration date (test code = 302) Blood type code (test code = 308) Blood type (test code = O POSITIVE 1314) Compatibility (test code Compatible = 6400) [facility] [id number] 18:27:00 Test Item Value Reference Range Interpretation Comments Product name (test code Red Cells AS1 = 25) Leukored Irrad Unit number (test code = [id number]) Product code (test code S9044C08 = 3092) Dispense status (test Transfused code = 24) Blood expiration date (test code = 302) Blood type code (test code = 308) Blood type (test code = O POSITIVE 1314) Compatibility (test code Compatible = 6400) Rosana AbdiARS-CoV-2 (COVID-19) RNA [Presence] in Respiratory specimen by MEERA with probe [id number] 06:09:43 Test Item Value Reference Range Interpretation Comments SARS-CoV-2 (COVID-19) RNA Not detected Not-Detected [Presence] in Respiratory specimen by MEERA with probe detection (test code = 16377-0) Whether patient is employed in a healthcare setting (test code = 83293-5) Whether the patient has symptoms related to condition of interest (test code = 72679-8) Patient was hospitalized because of this condition (test code = 77080-7) Whether the patient was admitted to intensive care unit (ICU) for condition of interest (test code = 97814-2) Whether patient resides in a congregate care setting (test code = 20879-3) LOMAS ROSANA CALLERS-CoV-2 (COVID-19) RNA [Presence] in Respiratory specimen by MEERA with probe lwabhncvb4949-95-38 06:09:43 Test Item Value Reference Range Interpretation Comments SARS-CoV-2 (COVID-19) RNA Not detected Not-Detected [Presence] in Respiratory specimen by MEERA with probe detection (test code = 07359-0) Whether patient is employed in a healthcare setting (test code = 73319-4) Whether the patient has symptoms related to condition of interest (test code = 41234-7) Patient was hospitalized because of this condition (test code = 42730-3) Whether the patient was admitted to intensive care unit (ICU) for condition of interest (test code = 18279-9) Whether patient resides in a congregate care setting (test code = 96997-5) CESILIA CALLERS-CoV-2 (COVID-19) RNA [Presence] in Respiratory specimen by MEERA with probe [id number] 16:43:34 Test Item Value Reference Range Interpretation Comments SARS-CoV-2 (COVID-19) RNA Not detected Not-Detected [Presence] in Respiratory specimen by MEERA with probe detection (test code = 96044-5) Whether patient is employed in a healthcare setting (test code = 83080-1) Whether the patient has symptoms related to condition of interest (test code = 05018-8) Patient was hospitalized because of this condition (test code = 71872-1) Whether the patient was admitted to intensive care unit (ICU) for condition of interest (test code = 22240-4) Whether patient resides in a congregate care setting (test code = 07181-2) CESILIA NG
[2022-07-13 11:33] LABS: Absolute Lymphocytes (CBC) 1.2 K/uL (0.7-4.9); Lymphocytes % 78.8 % (15.3-44.8); MCV 106.2 fL (80-100); MPV 7.8 fL (7.6-11.3); RBC Red Blood Cell Count 1.85 M/uL (4.33-5.43)
[2022-07-13 11:39] LABS: Hematocrit 19.6 % (39.6-49.0)
[2022-07-13 11:49] LABS: Albumin 3.4 g/dL (3.4-5.0); Bilirubin Total 0.5 mg/dL (0.2-1.0); Potassium 4.9 mmol/L (3.5-5.1); Protein, Total 6.1 g/dL (6.4-8.2)
[2022-07-13 12:21] LABS: Blood Morphology Comment NOTED (NOT SEEN); Macrocytosis 1+; Platelet Estimate DECR
[2022-07-13] MEDS ORDERED: NA CHLORIDE 0.9% 1,000 ML ONE (14:30)
--- NOTE | 2022-07-13 19:05 | ER ---
Nurse's Notes [facility] Name: Rodriguez Bridges Age: 81 yrs Sex: Male : 1940 Arrival Date: 07/13/2022 Time: 10:31 Bed 19 Private MD: Diagnosis: Anemia in neoplastic disease Presentation: 07/13 10:59 Chief complaint: Patient states: Hx of AML, blood work on Tuesday, H\T\H 6.7 \T\ 19. jl 7 Coronavirus screen: Vaccine status: Patient reports receiving the 2nd dose of the covid vaccine. At this time, the client does not indicate any symptoms associated with coronavirus-19. Ebola Screen: No symptoms or risks identified at this time. Initial Sepsis Screen: Does the patient meet any 2 criteria? No. Patient's initial sepsis screen is negative. Does the patient have a suspected source of infection? No. Patient's initial sepsis screen is negative. Risk Assessment: Do you want to hurt yourself or someone else? Patient reports no desire to harm self or others. Onset of symptoms is unknown. 10:59 Method Of Arrival: Ambulatory jl7 10:59 Acuity: ANTIONETTE 3 jl7 Triage Assessment: 11:00 General: Appears in no apparent distress. uncomfortable, Behavior is calm, cooperative, jl7 appropriate for age. Pain: Denies pain. Historical: - Allergies: 11:00 No Known Allergies; jl7 - Home Meds: 11:00 Allopurinol Oral [Active]; amlodipine oral [Active]; Basaglar KwikPen U-100 Insulin jl7 subcutaneous [Active]; carvedilol 12.5 mg oral tab [Active]; Combigan ophthalmic (eye) [Active]; darolutamide 300 mg oral tab [Active]; Doxycycline Oral [Active]; Lumigan 0.01 % ophthalmic (eye) drop [Active]; tamsulosin 0.4 mg oral cap [Active]; pravastatin 20 mg oral tab [Active]; relugolix 120 mg oral tab [Active]; voriconazole Oral [Active]; - PMHx: 11:00 Diabetes - IDDM; Hypertension; PROSTATE CA; AML; jl7 - PSHx: 11:00 None; jl7 - Immunization history:: Client reports receiving the 2nd dose of the Covid vaccine. - Social history:: Smoking status: Patient denies any tobacco usage or history of. - Family history:: not pertinent. Screenin:29 [facility] ED Fall Risk Assessment (Adult) Impaired Gait Yes (1 pt) Mobility Assist ll1 Device Used Yes (1 pt) Score/Fall Risk Level 0 - 2 = Low Risk Oriented to surroundings, Maintained a safe environment, Assessed \T\ reinforced patient's understanding of fall precautions, Hourly rounding (assess needs \T\ fall precautionary measures) done. Abuse screen: Denies threats or abuse. Nutritional screening: No deficits noted. Tuberculosis screening: No symptoms or risk factors identified. Assessment: 12:29 Reassessment: No changes from previously documented assessment. Patient and/or family ll1 updated on plan of care and expected duration. Pain level reassessed. Patient is alert, oriented x 3, equal unlabored respirations, skin warm/dry/pink. 13:25 Reassessment: No changes from previously documented assessment. Patient and/or family ll1 updated on plan of care and expected duration. Pain level reassessed. Patient is alert, oriented x 3, equal unlabored respirations, skin warm/dry/pink. Dr. Dos Santos at bedside. 14:28 Reassessment: No changes from previously documented assessment. Patient and/or family ll1 updated on plan of care and expected duration. Pain level reassessed. Patient is alert, oriented x 3, equal unlabored respirations, skin warm/dry/pink. 15:30 General: Appears in no apparent distress. comfortable, Behavior is calm, cooperative, eh3 appropriate for age. Pain: Denies pain. Neuro: Level of Consciousness is awake, alert, obeys commands, Oriented to person, place, time, situation. Cardiovascular: Capillary refill < 3 seconds Patient's skin is warm and dry. Respiratory: Airway is patent Respiratory effort is even, unlabored, Respiratory pattern is regular, symmetrical. 16:30 Reassessment: Patient appears in no apparent distress at this time. Patient and/or eh3 family updated on plan of care and expected duration. Pain level reassessed. Patient is alert, oriented x 3, equal unlabored respirations, skin warm/dry/pink. 17:30 Reassessment: Patient appears in no apparent distress at this time. Patient and/or eh3 family updated on plan of care and expected duration. Pain level reassessed. Patient is alert, oriented x 3, equal unlabored respirations, skin warm/dry/pink. 19:00 Reassessment: ASSUMED CARE OF PT. PT LYING IN BED RECEIVING BLOOD TRANSFUSION. CORKY WATTERS jj7 CURRENTLY AT BEDSIDE OBSERVING PT FOR 15 MINUTES. PT PAIN OR DISTRESS. AT BEDSIDE. VS STABLE. NO NEEDS AT THIS TIME. CALL CHOWDARY IN REACH. General: Appears in no apparent distress. comfortable, Behavior is calm, cooperative, appropriate for age. 20:46 Reassessment: 2nd UNIT OF PRBC INFUSED. PT TOLERATED WELL. STATES HE FEELS BETTER. NO jj7 ADVERSE REACTION. Vital Signs: 10:59 BP 108 / 53; Pulse 73; Resp 17; Temp 97.5; Pulse Ox 100% ; Weight 86.18 kg; Height 5 jl7 ft. 10 in. (177.80 cm); Pain 0/10; 13:26 BP 116 / 61; Pulse 73; Pulse Ox 100% on R/A; ll1 15:30 BP 111 / 70; Pulse 70; Resp 18; Pulse Ox 98% on R/A; eh3 16:30 BP 107 / 62; Pulse 78; Resp 18; Pulse Ox 98% on R/A; eh3 17:30 BP 124 / 68; Pulse 74; Resp 16; Pulse Ox 100% on R/A; eh3 19:20 BP 130 / 67; Pulse 76; Resp 16; Temp 98.2; Pulse Ox 100% ; Pain 0/10; jj7 20:46 BP 139 / 75; Pulse 73; Resp 17; Temp 98.3; Pulse Ox 98% ; Pain 0/10; jj7 10:59 Body Mass Index 27.26 (86.18 kg, 177.80 cm) jl7 ED Course: 10:31 Patient arrived in ED. am2 11:00 Triage completed. jl7 11:00 Sancho Dos Santos MD is Attending Physician. rt 11:00 Arm band placed on right wrist. Patient placed in waiting room, Patient notified of jl7 wait time. 12:28 Echo Benedict, DUONG is Primary Nurse. ll1 12:29 Patient placed in an exam room, on a stretcher. ll1 13:26 Patient has correct armband on for positive identification. Bed in low position. Call ll1 light in reach. Side rails up X2. Client placed on continuous cardiac and pulse oximetry monitoring. NIBP monitoring applied. traffic routing engineer on. 20:46 No provider procedures requiring assistance completed. IV discontinued, intact, jj7 bleeding controlled, No redness/swelling at site. Administered Medications: No medications were administered Medication: 13:26 VIS not applicable for this client. ll1 Outcome: 19:04 Discharge ordered by . rt 20:46 Discharged to home ambulatory, with significant other. jj7 20:46 Condition: improved 20:46 Discharge instructions given to patient, significant other, Instructed on discharge instructions, follow up and referral plans. Demonstrated understanding of instructions, follow-up care. 21:02 Patient left the ED. vc1 Signatures: Fran Bonilla RN RN jl7 Polina Rojas amEcho Peralta RN RN ll1 Clara Bobo RN RN vc1 Corky Quigley, DUONG RN eh3 Adolfo Mc RN RN jj7 Sancho Dos Santos MD MD rt
--- NOTE | 2022-07-13 19:05 | EDPHYS ---
Physician Documentation [facility] Name: Rodriguez Bridges Age: 81 yrs Sex: Male : 1940 Arrival Date: 07/13/2022 Time: 10:31 Bed 19 Private MD: ED Physician Sancho Dos Santos HPI: 07/13 12:01 This 81 yrs old Male presents to ER via Ambulatory with complaints of blood transfusion.rt 12:01 Onset: The symptoms/episode began/occurred 3 week(s) ago. Severity of symptoms: At rt their worst the symptoms were moderate. Patient with history of AML, not currently on chemotherapy presents to the ED with progressively worsening anemia, generalized weakness for the past 3 weeks. Patient states that his hemoglobin was 6.7 today, was sent for blood transfusion. Denies any bleeding at this time or other acute complaints. Symptoms are moderate in severity, no other aggravating or alleviating factors.. Historical: - Allergies: 11:00 No Known Allergies; jl7 - Home Meds: 11:00 Allopurinol Oral [Active]; amlodipine oral [Active]; Basaglar KwikPen U-100 Insulin jl7 subcutaneous [Active]; carvedilol 12.5 mg oral tab [Active]; Combigan ophthalmic (eye) [Active]; darolutamide 300 mg oral tab [Active]; Doxycycline Oral [Active]; Lumigan 0.01 % ophthalmic (eye) drop [Active]; tamsulosin 0.4 mg oral cap [Active]; pravastatin 20 mg oral tab [Active]; relugolix 120 mg oral tab [Active]; voriconazole Oral [Active]; - PMHx: 11:00 Diabetes - IDDM; Hypertension; PROSTATE CA; AML; jl7 - PSHx: 11:00 None; jl7 - Immunization history:: Client reports receiving the 2nd dose of the Covid vaccine. - Social history:: Smoking status: Patient denies any tobacco usage or history of. - Family history:: not pertinent. ROS: 12:10 Constitutional: Negative for fever, chills, and weight loss, ENT: Negative for injury, rt pain, and discharge, Neck: Negative for injury, pain, and swelling, Cardiovascular: Negative for chest pain, palpitations, and edema, Respiratory: Negative for shortness of breath, cough, wheezing, and pleuritic chest pain, Abdomen/GI: Negative for abdominal pain, nausea, vomiting, diarrhea, and constipation, MS/Extremity: Negative for injury and deformity, Skin: Negative for injury, rash, and discoloration, Psych: Negative for depression, anxiety, suicide ideation, homicidal ideation, and hallucinations. 12:10 Constitutional: Positive for Generalized weakness, Negative for fever. 12:10 Neuro: Positive for weakness, Negative for altered mental status. Exam: 12:10 Constitutional: This is a well developed, well nourished patient who is awake, alert, rt and in no acute distress. Head/Face: Normocephalic, atraumatic. Eyes: Pupils equal round and reactive to light, extra-ocular motions intact. Lids and lashes normal. Conjunctiva and sclera are non-icteric and not injected. Cornea within normal limits. Periorbital areas with no swelling, redness, or edema. ENT: Nares patent. No nasal discharge, no septal abnormalities noted. Tympanic membranes are normal and external auditory canals are clear. Oropharynx with no redness, swelling, or masses, exudates, or evidence of obstruction, uvula midline. Mucous membranes moist. Neck: Trachea midline, no thyromegaly or masses palpated, and no cervical lymphadenopathy. Supple, full range of motion without nuchal rigidity, or vertebral point tenderness. No Meningismus. Chest/axilla: Normal chest wall appearance and motion. Nontender with no deformity. No lesions are appreciated. Cardiovascular: Regular rate and rhythm with a normal S1 and S2. No gallops, murmurs, or rubs. Normal PMI, no JVD. No pulse deficits. Respiratory: Lungs have equal breath sounds bilaterally, clear to auscultation and percussion. No rales, rhonchi or wheezes noted. No increased work of breathing, no retractions or nasal flaring. Abdomen/GI: Soft, non-tender, with normal bowel sounds. No distension or tympany. No guarding or rebound. No evidence of tenderness throughout. Skin: Warm, dry with normal turgor. Normal color with no rashes, no lesions, and no evidence of cellulitis. MS/ Extremity: Pulses equal, no cyanosis. Neurovascular intact. Full, normal range of motion. Neuro: Awake and alert, GCS 15, oriented to person, place, time, and situation. Cranial nerves II-XII grossly intact. Motor strength 5/5 in all extremities. Sensory grossly intact. Cerebellar exam normal. Normal gait. Psych: Awake, alert, with orientation to person, place and time. Behavior, mood, and affect are within normal limits. Vital Signs: 10:59 BP 108 / 53; Pulse 73; Resp 17; Temp 97.5; Pulse Ox 100% ; Weight 86.18 kg; Height 5 jl7 ft. 10 in. (177.80 cm); Pain 0/10; 13:26 BP 116 / 61; Pulse 73; Pulse Ox 100% on R/A; ll1 15:30 BP 111 / 70; Pulse 70; Resp 18; Pulse Ox 98% on R/A; eh3 16:30 BP 107 / 62; Pulse 78; Resp 18; Pulse Ox 98% on R/A; eh3 17:30 BP 124 / 68; Pulse 74; Resp 16; Pulse Ox 100% on R/A; eh3 19:20 BP 130 / 67; Pulse 76; Resp 16; Temp 98.2; Pulse Ox 100% ; Pain 0/10; jj7 20:46 BP 139 / 75; Pulse 73; Resp 17; Temp 98.3; Pulse Ox 98% ; Pain 0/10; jj7 10:59 Body Mass Index 27.26 (86.18 kg, 177.80 cm) jl7 MDM: 11:19 Patient medically screened. rt 15:26 Differential Diagnosis Anemia, pancytopenia, hemorrhage. Data reviewed: vital signs, rt nurses notes, old medical records, lab test result(s). ED course: Presents to the ED with an anemia, this is secondary to his AML. There are no signs of bleeding, no evidence for GI bleed. The patient has stable vital signs, does not require admission to the hospital. We will transfuse patient to get his hemoglobin above 7, patient to follow-up with his oncologist as an outpatient. At this time, patient likely to benefit from admission to the hospital, he is comfortable discharge, return precautions discussed. No critical care time provided.. 07/13 11:11 Order name: CBC with Diff; Complete Time: 13:25 rt 07/13 11:11 Order name: CMP; Complete Time: 13:25 rt 07/13 11:11 Order name: Type And Screen rt 07/13 11:42 Order name: Manual Differential; Complete Time: 13:25 EDMS 07/13 13:30 Order name: ABO/RH no charge EDMS 07/13 13:33 Order name: Bb Add On bd 07/13 13:37 Order name: Packed RBCs (Additional Unit) EDMS Administered Medications: No medications were administered Disposition Summary: 07/13/22 19:04 Discharge Ordered Location: Home rt Problem: an ongoing problem rt Symptoms: have improved rt Condition: Stable rt Diagnosis - Anemia in neoplastic disease rt Followup: rt - With: Private Physician - When: 1 - 2 days - Reason: Discharge Instructions: - Discharge Summary Sheet rt - Anemia rt - Blood Transfusion, Adult rt - Blood Transfusion, Adult, Care After rt Forms: - Medication Reconciliation Form rt - Thank You Letter rt - Antibiotic Education rt - Prescription Opioid Use rt Signatures: Dispatcher [employer] Fran Griffin RN RN jl7 Sancho Dos Santos MD MD rt
[2022-07-13 21:27] VITALS: BP 139/75; TEMP 98.3; O2SAT 98
== END 2022-07-13 21:02 | disposition home or self-care (01) ==
LOC: ER 10:16
PROC: 30233N1 Transfusion of Nonautologous Red Blood Cells into Peripheral Vein, Percutaneous Approach (ICD-10-PCS; principal; 2022-07-13)
DX: C92.00 Acute myeloblastic leukemia, not having achieved remission (principal); D63.0 Anemia in neoplastic disease; E11.9 Type 2 diabetes mellitus without complications; Z79.4 Long term (current) use of insulin; I10 Essential (primary) hypertension
CPT/HCPCS: 85025; 36415; 86900; 86850; 86901; 80053; 36430; P9016 ×2; J7040; 99284